=== PATIENT | female | born 1990 | race Caucasian/White ===

== ENCOUNTER 2022-04-07 19:22 | Emergency (ER) | payer BC, SELFPAY ==
[2022-04-07 19:25] VITALS: BP 137/89; PULSE 100; RESP 18; TEMP 36.4; O2SAT 97; BMI 36.0
--- NOTE | 2022-04-07 19:43 | ED_ITS ---
HPI - Wound/Laceration General Chief Complaint: Laceration/Wound Stated Complaint: Left Thumb Cut Open Time Seen by Provider: 04/07/22 19:32 History of Present Illness HPI narrative: This 31-year-old female comes in with a laceration to her left thumb. She was using a knife in the kitchen and accidentally cut the distal portion of her left thumb near the thumbnail. She states that her tetanus is up-to-date and was last administered last year. Related Data Home Medications Medication Instructions Recorded Confirmed Advair Diskus 04/07/22 acetylcystine 04/07/22 levalbuterol HCl 0.31 mg/3 mL 0.31 mg inhalation Q8H 04/07/22 04/07/22 solution for nebulization mini pill 04/07/22 multivitamin (Daily Multi-Vitamin 1 tab PO DAILY 04/07/22 04/07/22 tablet) Allergies Allergy/AdvReac Type Severity Reaction Status Date / Time cefprozil [From Cefzil] Allergy Mild Hives Verified 04/07/22 19:35 Penicillins Allergy Mild Hives Verified 04/07/22 19:33 Sulfa (Sulfonamide Allergy Mild Hives Verified 04/07/22 19:35 Antibiotics) Review of Systems Status of ROS: Reports: 10 or more systems reviewed and unremarkable except as noted in History and below Narrative: Constitutional: No fevers, no weight gain or loss. Eyes: No discharge. No vision changes. HENT: No congestion, no sore throat, no ear pain. Cardiovascular: No chest pain, no palpitations. Respiratory: No shortness of breath, no wheezes, no cough. Gastrointestinal: No abdominal pain, no vomiting, no diarrhea. Genitourinary: No dysuria, no hematuria. Musculoskeletal: Normal range of motion. Left thumb injury as described above. Skin: No rashes, no pruritis. Neurological: No dizziness, weakness, sensory change, speech change. Endo/Heme/Allergies: No bruising or bleeding. No polydipsia. Pysch: no suicidality, no anxiety, no insomnia. All other systems reviewed and are negative. Exam Narrative: Exam Narrative: Constitutional: Well-developed, well-nourished, no acute distress. HEENT: Normocephalic, atraumatic. Neck: Normal range of motion. Nontender. Supple. Heart: Intact distal pulses. Lungs: No chest discomfort. No wheezes, rhonchi, or rales. Abdomen: Nontender. Back: Normal range of motion. Extremities: Normal range of motion. 1 cm linear laceration on the distal portion of the left thumb. Skin: Intact. No rash. Warm. No erythema or pallor. Neurologic: No altered sensation. No weakness. Alert and oriented. Psychiatric: No suicidality. No anxiety or depression. No insomnia. Nursing notes and vitals signs are reviewed. Const: Vital Signs, click to edit/add: Vital Signs - 24 hr 04/07/22 19:25 Temperature 97.5 F L Pulse Rate [Pulse Oximeter] 100 Respiratory Rate 18 Blood Pressure [[facility] Upper Arm] 137/89 Pulse Oximetry 97 Oxygen Delivery Me thod Room Air Course Vital Signs Vital signs: Initial Vital Signs Temperature 97.5 F L 04/07/22 19:25 Temperature Source Temporal Artery Scan 04/07/22 19:25 Pulse Rate 100 04/07/22 19:25 Pulse Rhythm 04/07/22 19:25 Respiratory Rate 18 04/07/22 19:25 Blood Pressure 137/89 04/07/22 19:25 Blood Pressure Mean 105 04/07/22 19:25 Blood Pressure Position Sitting 04/07/22 19:25 Pulse Oximetry 97 04/07/22 19:25 Oxygen Delivery Method 04/07/22 19:25 Vital Signs Temperature 97.5 F L 04/07/22 19:25 Pulse Rate 100 04/07/22 19:25 Respiratory Rate 18 04/07/22 19:25 Blood Pressure 137/89 04/07/22 19:25 Pulse Oximetry 97 04/07/22 19:25 Oxygen Delivery Method 04/07/22 19:25 Temperature 97.5 F L 04/07/22 19:25 Pulse Rate 100 04/07/22 19:25 Respiratory Rate 18 04/07/22 19:25 Blood Pressure 137/89 04/07/22 19:25 Pulse Oximetry 97 04/07/22 19:25 Oxygen Delivery Method 04/07/22 19:25 MDM - Wound/Laceration MDM Narrative Medical decision making narrative: This patient comes in with an injury to her left thumb. The time of my assessment the bleeding has stopped. The wound edges are nicely approximated. I did cleanse the wound with water and discussed repair options including Dermabond which was preferred by the patient. This was applied with excellent results. Instructions were given regarding wound care. Discharge Plan Discharge Clinical Impression: Laceration of thumb Patient Disposition: Home, Self-Care Condition: Stable Additional Instructions: Keep wound clean and dry. Follow up with MD or return if worsening. Prescriptions: No Action Advair Diskus acetylcystine levalbuterol HCl 0.31 mg/3 mL solution for nebulization 0.31 mg inhalation Q8H multivitamin [Daily Multi-Vitamin] Tablet 1 tab PO DAILY mini pill Stand Alone Forms: [facility] Info Instructions
== END 2022-04-07 20:14 | disposition home or self-care (01) ==
PROVIDERS: Emergency Provider Emergency Medicine Emergency Medical Services
DX: S61.012A Laceration without foreign body of left thumb without damage to nail, initial encounter (principal); W26.0XXA Contact with knife, initial encounter
CPT/HCPCS: 12001; 99283

== ENCOUNTER 2023-07-14 05:12 | Emergency (ER) | payer OTHER, SELFPAY ==
[2023-07-14 05:23] VITALS: BP 134/92; PULSE 104; RESP 16; TEMP 36.9; O2SAT 97; BMI 33.7
--- NOTE | 2023-07-14 05:58 | ED.GENADULT ---
HPI - General Adult General Chief complaint: Abdominal Pain Stated complaint: abdominal pain Time Seen by Provider: 07/14/23 05:37 Source: patient Mode of arrival: ambulatory Limitations: no limitations History of Present Illness HPI narrative: 33-year-old female presents the emergency department for evaluation of diffuse lower abdominal pain accompanied by nausea vomiting and diarrhea for the past 3 and half days. Initially started with loose stools on Friday afternoon, finished working as scheduled. By Friday she had nausea then vomiting and a fever up to 101. She reports that she was evaluated in Urgent Care, viral swabs were negative. She was told symptoms were likely viral and counseled on conservative management and Imodium. Patient states that she has been trying to push fluids but is feeling weaker. Still has crampy waves of abdominal pain in the upper abdomen but mostly just achy pain in the left lower quadrant area. No history of abdominal surgeries. No bloody stools or vomit. Fevers have resolved. Did recently return from [place] but was staying at an [place] resort, low risk for exposure to contaminated water. No abdominal trauma. No recent antibiotic usage or history of C diff. Has NuvaRing for contraception and just finished her menses late last week, unlikely to be . Did try some Tylenol a few days ago, no lasting improvement. Does have some myalgias but no specific headache, neck pain, breathing difficulties or cardiac symptoms. Past medical history notable for ADHD and asthma. Reports that her home meds are NuvaRing, Wellbutrin, Adderall, Advair and Xopenex. Nonsmoker. Recent return from [place]. ROS notable for the abdominal and generalized symptoms as above, otherwise denies times 12 systems. Related Data Home Medications Medication Instructions Recorded Confirmed Advair Diskus 04/07/22 acetylcystine 04/07/22 levalbuterol HCl 0.31 mg/3 mL 0.31 mg inhalation Q8H 04/07/22 04/07/22 solution for nebulization mini pill 04/07/22 multivitamin (Daily Multi-Vitamin 1 tab PO DAILY 04/07/22 04/07/22 tablet) Allergies Allergy/AdvReac Type Severity Reaction Status Date / Time cefprozil [From Cefzil] Allergy Mild Hives Verified 04/07/22 19:35 Penicillins Allergy Mild Hives Verified 04/07/22 19:33 Sulfa (Sulfonamide Allergy Mild Hives Verified 04/07/22 19:35 Antibiotics) [facility] Social History Smoking Status: Unknown if ever smoked Non-prescribed substance use: denies use Exam Const: Vital Signs, click to edit/add: Vital Signs - 24 hr 07/14/23 05:23 07/14/23 07:38 Temperature 98.4 F Pulse Rate [Left P ulse Oximeter] 104 H 77 Respiratory Rate 16 16 Blood Pressure [Ri ght Upper Arm] 134/92 H 113/66 Pulse Oximetry 97 98 Oxygen Delivery Me thod Room Air Room Air Documenting provider has reviewed patient's vital signs: yes Common normals: no apparent distress and alert General appearance: cooperative and well kempt Other: Appears mildly ill but no distress. HENMT: Common normals: normocephalic Head and scalp: normocephalic Face and sinus: normal facial exam Mouth: oral and palatal mucosa normal Throat: posterior oropharynx normal Eye: Common normals: conjunctivae normal General eye: normal appearance of both eyes Conjunctiva: conjunctiva(e) normal Neck & C-Spine: Common normals: no lymphadenopathy Resp: Common normals: normal respiratory effort, no use of accessory muscles and clear to auscultation bilaterally Effort & inspection: able to speak in complete sentences Auscultation: clear to auscultation bilaterally Cardio: Common normals: regular rate, regular rhythm, S1 normal heart sound, S2 normal heart sound and no murmurs Rate: regular rate Rhythm: regular rhythm Heart sounds: S1 normal and S2 normal GI: Common normals: Normal to inspection, nondistended, normoactive bowel sounds present, soft to palpation, no hepatosplenomegaly and no masses Palpation: soft and no hepatosplenomegaly Other: Diffusely tender to lower abdomen, a little more on the left than the right. But certainly no rebound tenderness or guarding. Belly is nice and soft. Bowel sounds are normoactive throughout. Extremity: Common normals: normal to inspection, normal capillary refill and no pedal edema Neuro: Sensorium/orientation: alert Motor exam: no movement abnormalities noted Psych: Appearance: well kempt Attitude: engaged Activity/motor behavior: appropriate eye contact Mood and affect: euthymic mood Insight: insight good Judgement: judgment good Skin: Common normals: no rashes or lesions noted General skin exam: no rashes or lesions noted Course Course ED Course: Symptoms most likely consistent with gastroenteritis though cannot exclude bowel obstruction, volvulus, pancreatitis, diverticulitis, influenza, among other viral syndromes. Could potentially be traveler's diarrhea though low risk in resort areas of [place]. She is mildly tachycardic and I suspect she might be mildly dehydrated. I recommended a L of LR, 4 mg of IV Zofran and 4 mg of loperamide with 15 mg of Toradol. I would like some basic labs CBC, CRP and comprehensive metabolic panel as well as lipase. If these are normal I do not think she needs imaging, will re-evaluate after labs and seeing if she gets any symptom relief from the interventions above. Reevaluation(s) Time of Reevaluation #1: 07:23 Reevaluation #1: Patient feeling markedly better and has been able to tolerate sips of water now. Labs are overall quite reassuring. These were reviewed with her. Subtle more time discussing who else from her trip may be ill, it is unusual that if this for gastroenteritis that none of her other household contacts are affected. I think she potentially could have contracted traveler's diarrhea. I discussed potentially treating with a short course of azithromycin and she was agreeable to this. Discussed the potential for worsening her nausea and diarrhea but I think the benefit outweighs the risk and she agreed as well. Will prescribe 500 mg today and then 250 daily for an additional 2 days. Zofran 4 mg p.r.n. and she may continue loperamide as needed. Alarm symptoms reviewed that would warrant ED presentation. She verbalizes understanding and agreement. Primary care follow-up if not improving in 3-5 days. Vital Signs Vital signs: Initial Vital Signs Temperature 98.4 F 07/14/23 05:23 Temperature Source Temporal Artery Scan 07/14/23 05:23 Pulse Rate 104 H 07/14/23 05:23 Pulse Rhythm Regular 07/14/23 05:23 Respiratory Rate 16 07/14/23 05:23 Blood Pressure 134/92 H 07/14/23 05:23 Blood Pressure Mean 106 H 07/14/23 05:23 Blood Pressure Position Sitting 07/14/23 05:23 Pulse Oximetry 97 07/14/23 05:23 Oxygen Delivery Method Room Air 07/14/23 05:23 Vital Signs Temperature 98.4 F 07/14/23 05:23 Pulse Rate 104 H 07/14/23 05:23 Respiratory Rate 16 07/14/23 05:23 Blood Pressure 134/92 H 07/14/23 05:23 Pulse Oximetry 97 07/14/23 05:23 Oxygen Delivery Method Room Air 07/14/23 05:23 Temperature 98.4 F 07/14/23 05:23 Pulse Rate 77 07/14/23 07:38 Respiratory Rate 16 07/14/23 07:38 Blood Pressure 113/66 07/14/23 07:38 Pulse Oximetry 98 07/14/23 07:38 Oxygen Delivery Method Room Air 07/14/23 07:38 Medications Administered Medications: Discontinued Medications Generic Name Dose Route Start Last Admin Trade Name Freq PRN Reason Stop Dose Admin Lactated Ringer's 1,000 mls @ 1,000 mls/hr 07/14/23 05:51 07/14/23 06:34 Lactated Ringers 1000 Ml IV 07/14/23 06:50 1,000 mls/hr .Q1H ONE Administration Ketorolac Tromethamine 15 mg 07/14/23 05:51 07/14/23 06:34 Ketorolac 15 Mg/Ml Inj IVP 07/14/23 05:52 15 mg ONCE ONE Administration Loperamide HCl 4 mg 07/14/23 05:51 07/14/23 06:35 Loperamide Hcl 2 Mg Capsule PO 07/14/23 05:52 4 mg ONCE ONE Administration Ondansetron HCl 4 mg 07/14/23 05:51 07/14/23 06:35 Ondansetron 2 Mg/Ml Inj IVP 07/14/23 05:52 4 mg ONCE ONE Administration Medical Decision Making Lab Data Lab results reviewed: Yes I reviewed the patient's lab results Lab results narrative: Reassuring. Swab is also negative Labs: Lab Results 07/14/23 Range/Units 06:25 WBC 6.68 (4.50-11.00) K/uL RBC 4.94 (4.00-5.20) m/uL Hgb 13.1 (12.0-16.0) gm/dL Hct 39.1 (33.0-51.0) % MCV 79 L (80-100) fL MCH 27 (26-34) pg MCHC 34 (32-36) gm/dL RDW Coeff of Beny 13.0 (11.5-15.5) % Plt Count 369 (140-440) K/uL Neut % (Auto) 70.7 (42.0-72.0) % Lymph % (Auto) 15.1 L (20-44) % Hart % (Auto) 13.5 H (0.0-11.0) % Eos % (Auto) 0.3 (0.0-7.0) % Baso % (Auto) 0.3 (0.0-3.0) % Neut # (Auto) 4.72 (1.7-7.0) K/uL Lymph # (Auto) 1.00 (0.90-2.90) K/uL Hart # (Auto) 0.90 (0.00-0.90) K/UL Eos # (Auto) 0.02 (0.00-0.50) K/uL Baso # (Auto) 0.02 (0.00-0.30) K/uL Abs Immat Gran (auto) 0.01 (0.00-0.30) K/uL Imm/Tot Granulo (auto) 0.1 % Sodium 135 (135-149) mmol/L Potassium 3.6 (3.6-5.1) mmol/L Chloride 104 (96-114) mmol/L Carbon Dioxide 19 L (20-32) mmol/L Anion Gap 12 (7-15) mEq/L BUN 7 (5-24) mg/dL Creatinine 0.8 (0.5-1.5) mg/dL Estimated Creat Clear 98.18 Estimated GFR 100 ml/min Glucose 120 H (60-115) mg/dL Calcium 9.0 (8.4-10.6) mg/dL Total Bilirubin 0.7 (0.1-1.5) mg/dL AST 27 (12-35) U/L ALT 35 (4-35) U/L Alkaline Phosphatase 73 (40-150) U/L Total Protein 7.4 (6.0-8.3) g/dL Albumin 4.2 (3.3-5.0) g/dL Lipase 30 (23-300) U/L SARS-CoV-2 (PCR) Negative SARS-CoV-2 (Negative) Influenza Type A (PCR) Negative PCR FLU A (Negative) Influenza Type B (PCR) Negative PCR FLU B (Negative) RSV (PCR) Negative PCR RSV (Negative) Discharge Plan Discharge Clinical Impression: Diarrhea, travelers' Patient Disposition: Home, Self-Care Condition: Improved Instructions: Traveler's Diarrhea (ED) Additional Instructions: I am glad your feeling better after the anti nausea medicine and fluids. Your labs look great, no severe dehydration or electrolyte abnormalities, no elevated white count or other signs of severe inflammation. Oral swabs are also reassuring. I am getting more concern from your story that you actually do have traveler's diarrhea though this is supposed to be quite rare at those very nice resorts. Because of this, I do recommend that we start you on some azithromycin. You will take 2 pills today and then 1 pill Friday and Friday. The instructions on the packet will say 2 pills daily for all 3 days but this is likely overkill for you. It is not unsafe to take both pills each day but it is more likely to cause nausea and diarrhea which you certainly do not need. It is okay for you to continue taking the Imodium, 2 pills up to every 4 hours, max of 8 per day. I have given her prescription for ondansetron, also known as Zofran, anti nausea medication. This should help with hydration and appetite markedly. You should be feeling quite a bit better in 48 hours. If no improvement in another 3 days, I would recommend reassessment. Continue to push fluids. Slowly advance your solid foods as you are feeling better. Off of work today. Consider returning tomorrow if your symptoms have improved markedly and you have been on antibiotic for 24 hours. Activity Level: Activity as Tolerated Prescriptions: No Action Advair Diskus acetylcystine levalbuterol HCl 0.31 mg/3 mL solution for nebulization 0.31 mg inhalation Q8H multivitamin [Daily Multi-Vitamin] Tablet 1 tab PO DAILY mini pill Follow Up/Referrals: Provider,Not a Local [Primary Care Provider] - Stand Alone Forms: [employer] Info Instructions
[2023-07-14] MEDS: LACTATED RINGERS 1000 ML 1,000 ML IV (06:34)
[2023-07-14] MEDS: KETOROLAC 15 MG/ML inj IVP (06:34)
[2023-07-14] MEDS: ONDANSETRON 2 MG/ML inj 4 MG IVP (06:35)
[2023-07-14] MEDS: LOPERAMIDE HCL 2 MG CAPSULE 4 MG PO (06:35)
[2023-07-14 06:36] LABS: Basophils Absolute Auto 0.02 K/uL (0.00-0.30); Basophils Percent Auto 0.3 % (0.0-3.0); Eosinophils Absolute Auto 0.02 K/uL (0.00-0.50); Eosinophils Percent Auto 0.3 % (0.0-7.0); Hematocrit 39.1 % (33.0-51.0); Hemoglobin* 13.1 gm/dL (12.0-16.0); Immature Granulocytes Abs Auto 0.01 K/uL (0.00-0.30); Immature Granulocytes Pct Auto 0.1 %; Lymphocytes Percent Auto 15.1 % (20-44); Mean Corpuscular HGB Conc 34 gm/dL (32-36); Mean Corpuscular Hemoglobin 27 pg (26-34); Mean Corpuscular Volume 79 fL (80-100); Monocytes Percent Auto 13.5 % (0.0-11.0); Neutrophils Absolute Auto 4.72 K/uL (1.7-7.0); Neutrophils Percent Auto 70.7 % (42.0-72.0); Platelet Count* 369 K/uL (140-440); Red Blood Count 4.94 m/uL (4.00-5.20); White Blood Count* 6.68 K/uL (4.50-11.00)
[2023-07-14 06:39] LABS: Slide Review Reflex No
[2023-07-14 06:54] LABS: Albumin* 4.2 g/dL (3.3-5.0); Chloride* 104 mmol/L (96-114)
[2023-07-14 06:55] LABS: Potassium* 3.6 mmol/L (3.6-5.1); Sodium* 135 mmol/L (135-149)
[2023-07-14 06:57] LABS: Alkaline Phosphatase* 73 U/L (40-150); Anion Gap 12 mEq/L (7-15); Aspartate Amino Transferase* 27 U/L (12-35); Bilirubin Total* 0.7 mg/dL (0.1-1.5); Carbon Dioxide* 19 mmol/L (20-32); Creatinine* 0.8 mg/dL (0.5-1.5); Est. Creatinine Clearance* 98.18; Estimated Glomerular Filt Rate 100 ml/min; Total Protein* 7.4 g/dL (6.0-8.3)
[2023-07-14 06:58] LABS: Alanine Aminotransferase* 35 U/L (4-35); Blood Urea Nitrogen* 7 mg/dL (5-24); Glucose* 120 mg/dL (60-115); Lipase* 30 U/L (23-300)
[2023-07-14 07:38] VITALS: BP 113/66; PULSE 77; RESP 16; O2SAT 98
[2023-07-14 07:46] LABS: PCR FLU A Negative PCR FLU A (Negative); PCR FLU B Negative PCR FLU B (Negative); PCR RSV Negative PCR RSV (Negative); SARS PCR* Negative SARS-CoV-2 (Negative)
[2023-07-14 08:56] LABS: C Reactive Protein* 8.5 mg/dL (0.5-1.0)
== END 2023-07-14 07:59 | disposition home or self-care (01) ==
PROVIDERS: Emergency Provider Family Medicine
DX: A08.8 Other specified intestinal infections (principal)
CPT/HCPCS: 36415; 80053; 83690; 85025; 86140; 87631; 96374; 96375; 99284; A9270; J1885; J2405; J7120

== ENCOUNTER 2024-03-13 21:31 | Emergency (ER) | payer OTHER, SELFPAY ==
[2024-03-13 21:37] VITALS: BP 148/105; PULSE 96; RESP 16; TEMP 36.8; O2SAT 98; BMI 33.5
[2024-03-13 21:44] LABS: Appearance Urine Clear (Clear); Bilirubin Urine Negative (Negative); Blood Urine 3+ (Negative); Color Urine Orange (Yellow); Glucose Urine Negative (Negative); Ketones Urine Negative (Negative); Leukocyte Esterase Urine Negative (Negative); Nitrite Urine Negative (Negative); Protein Urine Trace (Negative); Urobilinogen Urine 0.2 (0.2-1.0); pH Urine 6.5 (5.0-8.5)
--- NOTE | 2024-03-13 21:48 | ED.GENADULT ---
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 Francisca was working out this morning and noticed some left flank pain and thought this was related to a musculoskeletal injury. She was on a heating pad all day and notes that this was really the only position that gave her some relief. Tonight however she got up to use the bathroom and she had blood in her urine. She just finished her period which was normal and on time. She notes no nausea fever or chills. She states that in the past kidney stones were noted in her kidneys as an incidental finding. She has never passed a kidney stone to her knowledge in the past. No fever chills at this time. Related Data Home Medications ?Medication ?Instructions ?Recorded ?Confirmed Advair Diskus 04/07/22 acetylcystine 04/07/22 levalbuterol HCl 0.31 mg/3 mL 0.31 mg inhalation Q8H 04/07/22 04/07/22 solution for nebulization mini pill 04/07/22 multivitamin (Daily Multi-Vitamin 1 tab PO DAILY 04/07/22 04/07/22 tablet) Allergies Allergy/AdvReac Type Severity Reaction Status Date / Time cefprozil [From Cefzil] Allergy Mild Hives Verified 04/07/22 19:35 Penicillins Allergy Mild Hives Verified 04/07/22 19:33 Sulfa (Sulfonamide Allergy Mild Hives Verified 04/07/22 19:35 Antibiotics) Review of Systems Status of ROS: Reports: 6 or more systems reviewed and unremarkable except as noted in History and below PFSH PFSH Social History Smoking Status: Never smoker Second hand tobacco smoke exposure: No How often do you have a drink containing alcohol: never AUDIT-C Alcohol total score: 0 Non-prescribed substance use: denies use Exam Narrative: Exam Narrative: Alert and oriented no acute distress. Mentating normally. No CVA tenderness to percussion. Lung sounds clear. Heart with regular rate and rhythm. No lower extremity edema. Moving all extremities. Const: Vital Signs, click to edit/add: Vital Signs - 24 hr 03/13/24 21:37 03/13/24 22:01 Temperature 98.2 F 98.2 F Pulse Rate [Pulse Oximeter] 96 Respiratory Rate 16 Blood Pressure [Ri ght Upper Arm] 148/105 H Pulse Oximetry 98 Oxygen Delivery Me thod Room Air Documenting provider has reviewed patient's vital signs: yes Course Course ED Course: At this time given the hematuria, onset of left flank pain earlier today strongly suspect kidney stone but differential diagnosis also includes UTI, pyelonephritis. Will insert IV, give Toradol 15 mg IV as well as check CBC and basic panel. Plan on abdominal and pelvic CT without contrast at this time. Reevaluation(s) Reevaluation #1: Patient much improved after Toradol. Discussed CT results with patient. Noted findings of patchy opacities left lung base along with 2 cm nodular focus. Patient has had cold-like symptoms for 2 weeks and continues to have a cough. She has decreased breath sounds in the left lower lung base but no crackles. Given CT findings however and ongoing symptoms for 2 weeks will treat with an antibiotic. Patient has multiple allergies including hives to cephalosporins and penicillins as well as sulfa antibiotic. We spoke about using Zithromax alone or Levaquin. At this time she feels Zithromax would be enough for her. If she is not improving she will follow up with her primary. Vital Signs Vital signs: Initial Vital Signs Temperature 98.2 F 03/13/24 21:37 Temperature Source Temporal Artery Scan 03/13/24 21:37 Pulse Rate 96 03/13/24 21:37 Respiratory Rate 16 03/13/24 21:37 Blood Pressure 148/105 H 03/13/24 21:37 Blood Pressure Mean 119 H 03/13/24 21:37 Blood Pressure Position Sitting 03/13/24 21:37 Pulse Oximetry 98 03/13/24 21:37 Oxygen Delivery Method Room Air 03/13/24 21:37 Vital Signs Temperature 98.2 F 03/13/24 21:37 Pulse Rate 96 03/13/24 21:37 Respiratory Rate 16 03/13/24 21:37 Blood Pressure 148/105 H 03/13/24 21:37 Pulse Oximetry 98 03/13/24 21:37 Oxygen Delivery Method Room Air 03/13/24 21:37 Temperature 98.2 F 03/13/24 22:01 Pulse Rate 96 03/13/24 21:37 Respiratory Rate 16 03/13/24 21:37 Blood Pressure 148/105 H 03/13/24 21:37 Pulse Oximetry 98 03/13/24 21:37 Oxygen Delivery Method Room Air 03/13/24 21:37 Medications Administered Medications: Discontinued Medications Generic Name Dose Route Start Last Admin Trade Name Jaylan PRN Reason Stop Dose Admin Ketorolac Tromethamine 15 mg 03/13/24 21:54 03/13/24 22:01 Ketorolac 15 Mg/Ml Inj IVP 03/13/24 21:55 15 mg ONCE ONE Administration Medical Decision Making MDM Narrative Medical decision making narrative: 1. Left flank pain with hematuria-patient had the onset of left flank pain this morning thought to be musculoskeletal but no relief throughout the day and tonight had some hematuria. She certainly could have passed a stone or there is a 8 mm stone in the kidney itself that may be mobile. No evidence of urinary tract infection. Will have her follow-up with Urology. Much improved after IV Toradol. 2. Hypokalemia-mild at 3.3. Suggest increasing oral intake of potatoes and bananas and other potassium containing foods. 3. Noted on CT is increased lung markings pulmonary nodule. Patient notes an ongoing cough and cold-like symptoms for 2 weeks. Will treat with Zithromax at this time. Suggestion for repeat imaging in a 12 weeks per Radiology. Patient will be offered copy of her CT tonight. 4. Disposition-home at this time. Continue ibuprofen or Tylenol as needed. Seek medical attention for fever, worsening symptoms and as needed. Medical Records Medical records reviewed: Yes I reviewed the patient's medical records Lab Data Lab results reviewed: Yes I reviewed the patient's lab results Labs: Lab Results 03/13/24 03/13/24 03/13/24 Range/Units 21:35 21:40 22:01 WBC 9.14 (4.50-11.00) K/uL RBC 4.84 (4.00-5.20) m/uL Hgb 13.1 (12.0-16.0) gm/dL Hct 39.0 (33.0-51.0) % MCV 81 (80-100) fL MCH 27 (26-34) pg MCHC 34 (32-36) gm/dL RDW Coeff of Beny 12.6 (11.5-15.5) % Plt Count 407 (140-440) K/uL Neut % (Auto) 58.3 (42.0-72.0) % Lymph % (Auto) 29.6 (20-44) % Williamson % (Auto) 8.5 (0.0-11.0) % Eos % (Auto) 2.7 (0.0-7.0) % Baso % (Auto) 0.5 (0.0-3.0) % Neut # (Auto) 5.31 (1.7-7.0) K/uL Lymph # (Auto) 2.71 (0.90-2.90) K/uL Williamson # (Auto) 0.80 (0.00-0.90) K/UL Eos # (Auto) 0.25 (0.00-0.50) K/uL Baso # (Auto) 0.05 (0.00-0.30) K/uL Abs Immat Gran (auto) 0.04 (0.00-0.30) K/uL Imm/Tot Granulo (auto) 0.4 % Sodium 136 (135-149) mmol/L Potassium 3.3 L (3.6-5.1) mmol/L Chloride 104 (96-114) mmol/L Carbon Dioxide 21 (20-32) mmol/L Anion Gap 11 (7-15) mEq/L BUN 16 (5-24) mg/dL Creatinine 0.8 (0.5-1.5) mg/dL Estimated Creat Clear 98.18 Estimated GFR 100 ml/min Glucose 130 H (60-115) mg/dL Calcium 9.5 (8.4-10.6) mg/dL Urine Color [place] A (Yellow) Urine Appearance Clear (Clear) Urine pH 6.5 (5.0-8.5) Ur Specific [place] 1.010 (1.000-1.030) Urine Protein Trace A (Negative) Urine Glucose (UA) Negative (Negative) Urine Ketones Negative (Negative) Urine Blood 3+ A (Negative) Urine Nitrite Negative (Negative) Urine Bilirubin Negative (Negative) Urine Urobilinogen 0.2 (0.2-1.0) Ur Leukocyte Esterase Negative (Negative) Urine RBC 25-50 A (0-2) Urine WBC 0-2 (0-5) Ur Squamous Epith Cells Few (None-Few) Urine Bacteria Few A (None) Urine HCG, Qual Negative (Negative) Lab Acknowledgement Test Added Imaging Data CT scan - abdomen: Attestation: I have reviewed the pertinent imaging results. My impression: Large stone noted in the left kidney. Radiologist's impression: Lower chest: Patchy left basilar opacities. There is a nodular focus within this area measuring 2.0 centimeters. Hepatobiliary: No significant parenchymal abnormality is appreciated. Spleen: Unremarkable. Pancreas: No acute abnormality appreciated. Adrenal glands: No acute abnormality appreciated. Kidneys: Left nonobstructing renal stone measures 8 millimeters. No hydronephrosis. No additional renal stones present. Bowel: No obstruction. No focal perienteric or pericolonic stranding is appreciated. The appendix is visualized and appears unremarkable. Vascular: Poorly evaluated on this noncontrast examination. Lymph nodes: No gross lymphadenopathy. Peritoneum: No free air. No free fluid. : No acute abnormality appreciated. Soft tissues: No acute abnormality appreciated. Bones: No acute fracture. No lytic or blastic lesion. Impression: 1. Nonobstructing left renal stone measures 8 millimeters. No hydronephrosis or additional stones appreciated. 2. Patchy and linear opacities in the left lung base with a 2.0 centimeter nodular focus present. Findings may represent an infectious or inflammatory process. Follow-up CT in 12 weeks recommended to ensure resolution. Discharge Plan Discharge Clinical Impression: Nephrolithiasis, Hematuria, Pneumonia, Hypokalemia Patient Disposition: Home, Self-Care Condition: Improved Additional Instructions: Push fluids, follow-up with your primary care for urological consultation. Will also start you on Zithromax for pneumonia. However if you are not improving please see your primary. As noted on your CT 0 need to follow-up for repeat CT of the chest to ensure resolution of the findings. I would also speak to your primary in regards to Urology consultation. Ibuprofen or Tylenol as needed for discomfort. He increase potassium containing foods such as potatoes and bananas. Return to the emergency room as needed. Prescriptions: No Action Advair Diskus acetylcystine levalbuterol HCl 0.31 mg/3 mL solution for nebulization 0.31 mg inhalation Q8H multivitamin [Daily Multi-Vitamin] Tablet 1 tab PO DAILY mini pill Follow Up/Referrals: Provider,Not a Local [Primary Care Provider] - Stand Alone Forms: [facility] Info Instructions
[2024-03-13 21:52] LABS: RBC Urine 25-50 (0-2); WBC Urine 0-2 (0-5)
[2024-03-13 21:53] LABS: Bacteria Urine Few; Squamous Epithelial Cell Urine Few (None-Few)
--- NOTE | 2024-03-13 21:54 | CRLHL7_ITS ---
For Patients: As a result of the Century Cures Act, medical imaging exams and procedure reports are released immediately into your electronic medical record. You may view this report before your referring provider. If you have questions, please contact your health care provider. Indication: Left flank pain, history of stone Technique: Noncontrast CT through the abdomen and pelvis with multiplanar reformats. Comparison: None Findings: Lower chest: Patchy left basilar opacities. There is a nodular focus within this area measuring 2.0 centimeters. Hepatobiliary: No significant parenchymal abnormality is appreciated. Spleen: Unremarkable. Pancreas: No acute abnormality appreciated. Adrenal glands: No acute abnormality appreciated. Kidneys: Left nonobstructing renal stone measures 8 millimeters. No hydronephrosis. No additional renal stones present. Bowel: No obstruction. No focal perienteric or pericolonic stranding is appreciated. The appendix is visualized and appears unremarkable. Vascular: Poorly evaluated on this noncontrast examination. Lymph nodes: No gross lymphadenopathy. Peritoneum: No free air. No free fluid. : No acute abnormality appreciated. Soft tissues: No acute abnormality appreciated. Bones: No acute fracture. No lytic or blastic lesion. Impression: 1. Nonobstructing left renal stone measures 8 millimeters. No hydronephrosis or additional stones appreciated. 2. Patchy and linear opacities in the left lung base with a 2.0 centimeter nodular focus present. Findings may represent an infectious or inflammatory process. Follow-up CT in 12 weeks recommended to ensure resolution. Please note that all CT scans at this facility use dose modulation, iterative reconstruction, and/or weight-based dosing when appropriate to reduce radiation dose to as low as reasonably achievable. Dictated by Kevin Corona MD @ 03/13/2024 11:32:26 PM (Electronically Signed)
[2024-03-13 22:01] VITALS: TEMP 36.8
[2024-03-13] MEDS: KETOROLAC 15 MG/ML inj IVP (22:01)
[2024-03-13 22:06] LABS: Basophils Absolute Auto 0.05 K/uL (0.00-0.30); Basophils Percent Auto 0.5 % (0.0-3.0); Eosinophils Absolute Auto 0.25 K/uL (0.00-0.50); Eosinophils Percent Auto 2.7 % (0.0-7.0); Hemoglobin* 13.1 gm/dL (12.0-16.0); Immature Granulocytes Abs Auto 0.04 K/uL (0.00-0.30); Immature Granulocytes Pct Auto 0.4 %; Lymphocytes Absolute Auto 2.71 K/uL (0.90-2.90); Lymphocytes Percent Auto 29.6 % (20-44); Mean Corpuscular HGB Conc 34 gm/dL (32-36); Mean Corpuscular Hemoglobin 27 pg (26-34); Mean Corpuscular Volume 81 fL (80-100); Monocytes Percent Auto 8.5 % (0.0-11.0); Neutrophils Absolute Auto 5.31 K/uL (1.7-7.0); Neutrophils Percent Auto 58.3 % (42.0-72.0); Platelet Count* 407 K/uL (140-440); RDW Coefficient of Variation % 12.6 % (11.5-15.5); Red Blood Count 4.84 m/uL (4.00-5.20); White Blood Count* 9.14 K/uL (4.50-11.00)
--- OUTSIDE RECORDS SUMMARY | 2024-03-13 22:06 | XMS_ITS | Encounter Summary ---
Author Organization [facility] Address [address] [place] [address]. [place] [address] Care Team Providers Care Secretary Office Clerk Name Role Phone Norma Zhang APRN BEHAVIORAL THERAPIST Primary Car e Provider Norma Zhang APRN BEHAVIORAL THERAPIST Unavailable Irineo Lebron PhD Unavailable [phone] Encounter Details Date Type Department Care Team (Latest Contact Info) Description 03/04/2024 Travel Social History Tobacco Use Types Packs/Day Years Used Date Smoking Tobacco: Never Smokeless Tobacco: Never Alcohol Use Standard Drinks/Week Comments Not Currently 0 (1 standard drink = 0.6 oz pure alcohol) socially, couple times per month Social Connection and Isolation Panel [NHANES] A nswer Date Recorded Frequency of Communication with Friends and Fami ly Not on file 11/24/2023 How often do you get together with friends or re latives? Twice a week 11/24/2023 Attends Holiness Services Not on file 11/23 Active Member of Clubs or Organizations Not on f ile 11/24/2023 Attends Club or Organization Meetings Not on stephanie e 11/24/2023 Marital Status Not on file 11/24/2023 AUDIT-C Answer Date Recorded Q1: How often do you have a drink containing alc ohol? Monthly or less 11/11/2022 Q2: How many drinks containi ng alcohol do you have on a typical day when you are drinking? 1 or 2 11/11/2022 Q3: How often do you have si x or more drinks on one occasion? Less than monthly 11/11/2022 PHQ-2 Answer Date Recorded PHQ-2 Score 0 11/25/2023 [facility] - Occupational Stress Questionnaire Answer Date Recorded Do you feel stress - tense, restless, nervous, or anxious, or unable to sleep at night because your mind is troubled all the time - these days? Only a little 11/24/2023 Exercise Vital Sign Answer Date Recorde d On average, how many days pe r week do you engage in moderate to strenuous exercise (like a brisk walk)? 4 days 11/24/2023 On average, how many minutes do you engage in exercise at this level? 40 min 11/24/2023 [place] Depression Scale Answer Date Recorded [place] Depression Score 3 10/31/2021 Last EPDS Self Harm Result Not on file 10/31 Adolescent Education Answer Date Record ed Getting School Help Needed Not on file 02/25 Food Insecurity Answer Date Recorded Within the past 12 months, d id you worry that your food would run out before you got money to buy more? No 11/24/2023 Within the past 12 months, d id the food you bought just not last and you didn? t have money to get more? No 11/24/2023 Housing Stability Answer Date Recorded Do you have housing? (Yony g is defined as stable permanent housing and does not include staying ouside in a car, in a tent, in an abandoned building, in an overnight halfway, or couch-surfing.) Yes 11/24/2023 Are you worried about losing your housing? No 11/24/2023 Financial Resource Strain Answer Date R ecorded Within the past 12 months, h ave you or your family members you live with been unable to get utilities (heat, electricity) when it was really needed? No 11/24/2023 Transportation Needs Answer Date Record ed Within the past 12 months, h as lack of transportation kept you from medical appointments, getting your medicines, non-medical meetings or appointments, work, or from getting things that you need? No 11/24/2023 Interpersonal Safety Answer Date Record ed Do you feel physically and e motionally safe where you currently live? Yes 11/25/2023 Within the past 12 months, h ave you been hit, slapped, kicked or otherwise physically hurt by someone? No 11/25/2023 Within the past 12 months, h ave you been humiliated or emotionally abused in other ways by your partner or ex-partner? 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 Gender Identity Female 06/06/2018 9:16 PM ASSISTANT BASEBALL COACH Sexual Orientation Straight 06/06/2018 9: 16 PM ASSISTANT BASEBALL COACH documented as of this encounter Plan of Treatment Upcoming Encounters Date Type Department Care Team (Late st Contact Info) Description 11/30/2024 7:00 AM CDT Office Visit [facility] [address] [place] [address] Drive [address] [place] [phone] Norma Zhang APRN BEHAVIORAL THERAPIST [address] [place] [address] [place] [id number] documented as of this encounter Visit Diagnoses Not on filedocumented in this encounter Additional Health Concerns Assessment Noted Time PHQ-9 Depression Total Score: 2 04/04/20 23 10:40 AM CDT documented as of this encounter Care Teams Secretary Office Clerk Relationship Specialty Start Date End Date Norma Zhang APRN BEHAVIORAL THERAPIST [address] [place] [address] [place] [id number] PCP - General Nurse Practitioner 11/30/18 Norma Zhang APRN BEHAVIORAL THERAPIST [address] [place] [address] [place] [id number] Assigned PCP 06/22/22 Irineo Lebron, PhD [address] [place] [address] Assigned Behavioral Health Provider 11/23/22 documented as of this encounter
--- OUTSIDE RECORDS SUMMARY | 2024-03-13 22:06 | XMS_ITS | Encounter Summary ---
Author Organization [facility] Address [address] [place] [address]. [place] [address] Care Team Providers Care Ui Designer Name Role Phone Norma Zhang APRN BLOCK CHOPPER HAND Primary Car e Provider Norma Zhang APRN BLOCK CHOPPER HAND Unavailable Irineo Lebron PhD Unavailable [phone] Reason for Visit * Reason Onset Date Comments Refill Request 02/27/2024 Encounter Details Date Type Department Care Team (Late st Contact Info) Description 02/27/2024 [facility] [address] [place] [phone] Norma Zhang APRN BLOCK CHOPPER HAND [address] [facility] [place] [id number] Refill Request Social History Tobacco Use Types Packs/Day Years [...] re latives? Twice a week 11/24/2023 Attends [employer] Services Not on file 11/23 Active Member [...] Answer Date Recorded PHQ-2 Score 0 11/25/2023 [facility] - Occupational Stress Questionnaire Answer Date Recorded [...] exercise at this level? 40 min 11/24/2023 [place] Depression Scale Answer Date Recorded [place] Depression Score 3 10/31/2021 Last EPDS Self [...] Answer Date Recorded Do you have housing? 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 Sexual Orientation Straight 06/06/2018 9: 16 PM HORIZONTAL BORING MILL SET UP OPERATOR documented as of this encounter Plan of Treatment Upcoming Encounters Date Type Department Care Team (Late st Contact Info) Description 11/30/2024 7:00 AM CDT Office Visit [facility] [address] [place] [address] Drive [address] [place] [phone] Norma Zhang APRN BLOCK CHOPPER HAND [address] [place] [address] [place] [id number] documented as of this encounter Visit Diagnoses Diagnosis ADHD (attention deficit hyperactivity disorder), combined type Attention deficit disorder with hyperactivity documented in this encounter Additional Health Concerns Assessment Noted Time PHQ-9 Depression Total Score: 2 04/04/20 23 10:40 AM CDT documented as of this encounter Care Teams Ui Designer Relationship Specialty Start Date End Date Norma Zhang APRN BLOCK CHOPPER HAND [address] [place] [address] [place] [id number] PCP - General Nurse Practitioner 11/30/18 Norma Zhang APRN BLOCK CHOPPER HAND [address] [place] [address] [place] [id number] Assigned PCP 06/22/22 Irineo Lebron, PhD [address] [place] [address] Assigned Behavioral Health Provider 11/23/22 documented as of this encounter
--- OUTSIDE RECORDS SUMMARY | 2024-03-13 22:06 | XMS_ITS | Clinical Summary ---
Author Organization [facility] Address [address] [place] [id number] Care Team Providers Care Physical Therapy Aide Name Role Phone Norma Zhang APRN ENGINE CLEANER Primary Car e Provider Norma Zhang APRN ENGINE CLEANER Unavailable Irineo Lebron PhD Unavailable [phone] Allergies Active Allergy Reactions Criticality Noted Date Comments Amoxicillin-Pot Clavulanate Rash Low 12/07/19 09 Cefprozil Rash High 02/22/2010 Levofloxacin Palpitations Low 08/24/2016 Penicillin G Potassium Rash High 02/22/2010 Sulfa Antibiotics Hives,Rash High 02/22/2010 Severe hives / rash with this she received 2 shots of Epi Medications Medication Sig Dispensed Refills Start Date End Date Status Acetaminophen (TYLENOL PO) Take 1,000 mg by mouth PRN Active Multiple Vitamin (MULTIVITAMIN PO) Active buPROPion (WELLBUTRIN XL) 300 MG 24 hr tabletIndications :Depression, unspecified depression type Take 1 tablet (300 mg) by mouth every morning 90 tablet 3 4 Active etonogestrel-ethi nyl estradiol (NUVARING) 0.12-0.015 MG/24HR vaginal ringIndications:E ncounter for initial prescription of vaginal ring hormonal contraceptive Place 1 each vaginally every 28 days 3 each 3 4 Active fluticasone-salme terol (ADVAIR HFA) 230-21 MCG/ACT inhalerIndication s:Bronchiectasis without complication (H) Inhale 2 puffs into the lungs 2 times daily 12 g 11 4 Active levalbuterol (XOPENEX) 1.25 MG/3ML neb solutionIndicatio ns:Mild persistent asthma with acute exacerbation USE 3 MLS BY NEBULIZATION EVERY 6 HOURS NEEDED FOR SHORTNESS OF BREATH / DYSPNEA OR WHEEZING 90 mL 11 4 Active albuterol (PROAIR HFA/PROVENTIL HFA/VENTOLIN HFA) 108 (90 Base) MCG/ACT inhalerIndication s:Bronchiectasis without complication (H) INHALE 2 PUFFS INTO THE LUNGS EVERY 6 HOURS NEEDED FOR SHORTNESS OF BREATH, WHEEZING OR COUGH 18 g 4 Active amphetamine-dextr oamphetamine (ADDERALL) 10 MG tabletIndications :ADHD (attention deficit hyperactivity disorder), combined type Take 1 tablet (10 mg) by mouth daily. In afternoon as needed 30 tablet 4 Active amphetamine-dextr oamphetamine (ADDERALL XR) 10 MG 24 hr capsuleIndication s:ADHD (attention deficit hyperactivity disorder), combined type Take 1 capsule (10 mg) by mouth daily. 30 capsule 4 Active benzonatate (TESSALON) 200 MG capsuleIndication s:Acute cough Take 1 capsule (200 mg) by mouth 3 times daily as needed for cough. 30 capsule 4 Active amphetamine-dextr oamphetamine (ADDERALL) 10 MG tabletIndications :ADHD (attention deficit hyperactivity disorder), combined type Take 1 tablet (10 mg) by mouth daily In afternoon as needed 30 tablet 4 024 Discontinued(Re order (No AVS)) amphetamine-dextr oamphetamine (ADDERALL XR) 10 MG 24 hr capsuleIndication s:ADHD (attention deficit hyperactivity disorder), combined type Take 1 capsule (10 mg) by mouth daily. 30 capsule 4 024 Discontinued(Re order (No AVS)) amphetamine-dextr oamphetamine (ADDERALL XR) 10 MG 24 hr capsuleIndication s:ADHD (attention deficit hyperactivity disorder), combined type Take 1 capsule (10 mg) by mouth daily. 30 capsule 4 024 Discontinued(Re order (No AVS)) predniSONE (DELTASONE) 20 MG tabletIndications :Mild persistent asthma with acute exacerbation Take 1 tablet (20 mg) by mouth daily for 5 days. 5 tablet 4 024 benzonatate (TESSALON) 100 MG capsuleIndication s:Acute cough Take 1 capsule (100 mg) by mouth 3 times daily as needed for cough. 15 capsule 4 024 Discontinued Active Problems Problem Noted Date Diagnosed Date Elevated blood pressure read ing without diagnosis of hypertension 11/25/2023 Mild persistent asthma with acute exacerbation 0 11/25/2023 SVT (supraventricular tachycardia) (H24)-since [facility] valdez 04/08/2023 ADHD (attention deficit hype ractivity disorder), combined type 01/10/2023 Overview: 5mg XR 30 tabs pe rmonth 5mg IR 30 tabs per month Dx by [facility] 2022 History of eating disorder 11/12/2022 Overview: As a teen. Inactive now. Anorexia and Bulemia. Depression, unspecified depression type 11/13/19 23 Obesity (BMI 30-39.9) 01/03/2021 Overview: 07/08/2018 BMI 32 History of pre-eclampsia 01/03/2021 Overview: 1st preg Dx 38w9d ega, elevated BP >140/90s with new onset visual changes and headache 03/14/21 daily baby asa recommended starting ad 12 weeks Gestational hypertension 02/14/2020 Mild persistent asthma without complication 06/03 Bronchiectasis without complication 06/30/2015 Generalized anxiety disorder 03/31/2015 Overview: Diagnosis updated by automated process. Provider to review and confirm. Migraine headache 03/13/2010 Overview: (Problem list name updated by automated process. Provider to review and confirm.) Resolved Problems Problem Noted Date Diagnosed Date Resolved Date Female stress incontinence 12/11/2021 0 01/23/2022 (normal spontaneous vaginal delivery) 09/20/2021 11/11/2022 Encounter for induction of labor 09/19/2021 09/20/2021 Labor and delivery indicatio n for care or intervention 09/05/2021 09/20/2021 High-risk , third trimester 08/08/2021 11/11/2022 Overview: Clinic/Hospital: [facility] Partner Name: Gilberto Ultrasound predicts sex: girl Childrens names/ages: Previous labor experiences: epidural, IOL for pre-e, long induction, pushed for 30-45 minutes Waterbirth (interest, declined, ineligible): Level of education/occupation: Pertinent History: PP contraception: POPs Hx PPD/Depression/Anxiety: Ed: Plans for labor pain management: open plan, desires strong communication Plans for post recovery/time off: Feeding preference: Breast Breast pump: Peds provider: Dr. Humera Fragoso Car seat: Circumcision: Discussed 2 week visit: Tdap: Flu: Covid vaccine: Encounter for triage in patient 07/05/2021 09/20/2021 Fall from slipping on ice 07/05/2021 Overview: Monitored in triage 2/3. Obesity affecting in first trimester 05/02/2021 11/11/2022 Overview: Pregravid BMI 36 Plan for weekly BPPs or NSTs at 37wks per MFM (normal spontaneous vaginal delivery) 02/15/2020 09/20/2021 High blood pressure 02/13/2020 11/12/19 23 Moderate asthma with acute exacerbation 04/05/2017 11/25/2023 Panic attack 03/31/2015 11/25/2023 Encounters Date Type Department Care Team Description 03/04/2024 1:30 PM CDT Office Visit [facility] [address] [place] [address] Debbie Jacobs, PAMonetC Mild persistent asthma with acute exacerbation (Primary Dx); Acute cough; Elevated blood pressure reading without diagnosis of hypertension 03/04/2024 [facility] Medical Advice [facility] [place] [address] [place] [address] Debbie Jacobs PA-C 03/04/2024 Travel 03/02/2024 MyC Refill M [address] [place] [phone] Norma Zhang APRN ENGINE CLEANER Refill Request 02/27/2024 MyC Refill M [address] [place] [phone] Norma Zhang APRN ENGINE CLEANER Refill Request 02/13/2024 MyC Refill M [address] [place] [address] Norma Zhang APRN ENGINE CLEANER Refill Request 01/26/2024 MyC Refill M [address] [place] [phone] Norma Zhang APRN ENGINE CLEANER Refill Request 01/22/2024 MyC Refill M [address] [place] [phone] Norma Zhang APRN ENGINE CLEANER Refill Request 01/05/2024 MyC Refill M [address] [place] [phone] Norma Zhang APRN ENGINE CLEANER Refill Request 12/18/2023 Refill M [address] [place] [address] Norma Zhang APRN ENGINE CLEANER Medication Refill from Last 3 Months Immunizations Name Administration Dates Next Due COVID-19 12+ (Pfizer) 03/12/2023 COVID-19 MONOVALENT 12+ (Pfizer) 09/04/2020,07/31 DTAP (<7y) 06/09/1996, 3,1991,10/11,1991 Flu, Unspecified 02/29/2020,03/16/2019 HIB (PRP-T) 02/01/1993, 2,1991,08/05 HPV 06/03/2013,03/26/2012,06/11/2010 HepB 04/20/2015, 5,12/08/1995,05/05,04/02/1995 Influenza (IIV3) PF 01/27/2012, 6,05/10/2002,06/05,03/12/1999 Influenza Intranasal Vaccine 01/25/2009 Influenza Vaccine >6 months,quad, PF 03/12/2023, 03/16/2021,03/10/2019 MMR 09/21/2021, 0(),03/16/2015,12/1996,09/14/1992 Meningococcal (Menomune??) 06/11/2010 OPV, trivalent, live 06/09/1996,02/01/19 93,1991,08/05 Pneumococcal 20 valent Conju gate (Prevnar 20) 11/12/2022 Pneumococcal 23 valent 04/09/2006 TDAP (Adacel,Boostrix) 07/11/2021,06/11/2010 TDAP Vaccine (Adacel) 12/15/2019 Varicella 04/20/2015,03/16/2015,01/25/2009 Family History Medical History Relation Comments Allergies Brother Asthma Brother Diabetes Father Type 2 Hypertension Father Prostate Cancer Father Cancer Maternal Aunt pancreatic age 45 Diabetes Maternal Grandfather Type 2 Heart Failure Maternal Grandfather Cancer Maternal Grandmother lung cancer Diabetes Maternal Grandmother Type 2 Diabetes Mother type 2 Hypertension Mother Cerebrovascular Disease Paternal Grandfather Cerebrovascular Disease Paternal Grandmother Relation Status Comments Brother Alive Father Alive Maternal Aunt Maternal Grandfather Maternal Grandmother Mother Alive Paternal Grandfather stroke Paternal Grandmother suicide Sister Alive Social History Tobacco Use Types Packs/Day Years Used Date Smoking Tobacco: Never Smokeless Tobacco: Never Tobacco Cessation:Counseling Given: Not Answered Alcohol Use Standard Drinks/Week Comments Not Currently 0 (1 standard drink = 0.6 oz pure alcohol) socially, couple times per month Social Connection and Isolation Panel [NHANES] A nswer Date Recorded Frequency of Communication with Friends and Fami ly Not on file 11/24/2023 How often do you get together with friends or re latives? Twice a week 11/24/2023 Attends [employer] Not on file 11/23 Active Member [...] Answer Date Recorded PHQ-2 Score 0 11/25/2023 [facility] - Occupational Stress [...] exercise at this level? 40 min 11/24/2023 [place] Depression Scale Answer Date Recorded [place] Depression Score 3 10/31/2021 Last EPDS Self [...] Date Recorded Do you have housing? (Yony puga is defined as stable permanent housing and does not include staying ouside in a car, in a tent, in an abandoned building, in an overnight retirement, or couch-surfing.) Yes 11/24/2023 Are you worried [...] Sex Assigned at Female 06/06/2018 9:16 PM CHARGEBACK ANALYST Gender Identity Female 06/06/2018 9:16 PM CHARGEBACK ANALYST Sexual Orientation Straight 06/06/2018 9: 16 PM CHARGEBACK ANALYST Last Filed Vital Signs Vital Sign Reading Time Taken Comments Blood Pressure 161/92 03/04/2024 1:29 PM CDT Pulse 103 03/04/2024 1:29 PM CDT Temperature 36.9 ??C (98.5 ??F) 03/04/2024 1:29 PM CD T Respiratory Rate 16 11/25/2023 7:01 AM CDT Oxygen Saturation 98% 03/04/2024 1:29 PM CDT Inhaled Oxygen Concentration - - Weight 95.3 kg (210 lb) 03/04/2024 1:29 PM CDT Height 170.2 cm (5' 7) 11/25/2023 7:01 AM CDT Body Mass Index 32.89 11/25/2023 7:01 AM CDT Plan of Treatment Upcoming Encounters Date Type Department Care Team (Late st Contact Info) Description 11/30/2024 7:00 AM CDT Office Visit [facility] [place] [address] [place] [phone] Norma Zhang APRN ENGINE CLEANER [address] [facility] [place] [address] Health Maintenance Due Date Last Done Comments ASTHMA ACTION PLAN 12/19/2018 12/19/2017, 1 07/28/2015, 05/20/2016, Additional history exists COVID-19 Vaccine ( season) 2024 03/12/2023, 02/25/2022, 04/19/2021, Additional history exists INFLUENZA VACCINE (#1) 2024 , 02/25/2022, 03/16/2021, Additional history exists ASTHMA CONTROL TEST 05/26/2024 11/25/2023, 05/06/2023, 04/08/2023, Additional history exists ANNUAL REVIEW OF HM ORDERS 11/24/202411/24, 11/12/2022, 03/07/2020 BMP 11/24/2024 11/25/2023, 11/0 06/2020, 02/14/2020, Additional history exists YEARLY PREVENTIVE VISIT 11/24/2024 11/25/19 24, 11/12/2022, 01/03/2021, Additional history exists HPV TEST 11/13/2027 11/12/2022 PAP 11/13/2027 11/12/2022, 03/03, 02/13/2017, Additional history exists ADVANCE CARE PLANNING 11/24/2028 11/25/2023 DTAP/TDAP/TD IMMUNIZATION (9 - Td or Tdap) 07/11/2031 07/11/2021, 12/15/2019, 06/11/2010, Additional history exists RSV VACCINE (1 - 1-dose 75+ series) 2066 MENINGITIS IMMUNIZATION Aged Out 06/11/2010 No l onger eligible based on patient's age to complete this topic HPV IMMUNIZATION Completed 06/03/2013, , 06/11/2010 HEPATITIS B IMMUNIZATION Completed 015, 03/16/2015, 12/08/1995, Additional history exists MIGRAINE ACTION PLAN Completed 05/05/2015 HEPATITIS C SCREENING Completed 03/07/2021, 015 HIV SCREENING Completed 03/07/2021, 07/04, 08/31/2014 Pneumococcal Vaccine: Pediatrics (0 to 5 Years) and At-Risk Patients (6 to 64 Years) Completed 11/12/2022, 04/09/2006 PHQ-2 (once per calendar year) Completed 11/25/2023, 04/04/2023, 04/04/2023, Additional history exists RSV MONOCLONAL ANTIBODY Aged Out No l onger eligible based on patient's age to complete this topic Procedures Procedure Name Priority Date/Time Associated Diagnosis Comments BASIC METABOLIC PANEL Add-On 11/25/2023 7:39 AM CDT Elevated blood pressure reading without diagnosis of hypertension GYNECOLOGIC CYTOLOGY Routine 11/12/2022 2:06 PM CDT Cervical cancer screening HPV HIGH RISK TYPES DNA CERVICAL Routine 11/12/2022 2:06 PM CDT Cervical cancer screening HIV ANTIGEN ANTIBODY COMBO Routine 03/07/2021 8:39 AM CDT Supervision of normal HEPATITIS C ANTIBODY Routine 03/07/2021 8:39 AM CDT Supervision of normal ASTHMA ACTION PLAN Routine 05/27/2016 5: 30 PM CHARGEBACK ANALYST from Last 3 Months or Most Recently Relevant to Health Maintenance Results * (ABNORMAL) Basic metabolic panel (Ca, Cl, CO2, Creat, Gluc, K, Na, BUN) (11/25/2023 7:39 AM CDT) Sodium 141 135 - 145 mmol/L 11/27/2023 3:16 PM CDT [facility] Potassium 4.0 3.4 - 5.3 mmol/L 11/27/2023 3:16 PM CDT [facility] Chloride 105 98 - 107 mmol/L 11/27/2023 3:16 PM CDT [facility] Carbon Dioxide (CO2) 21(L) 22 - 29 mmol/L 11/27/2023 3:16 PM CDT [facility] Anion Gap 15 7 - 15 mmol/L 11/27/2023 3:16 PM CDT [facility] Urea Nitrogen 14.6 6.0 - 20.0 mg/dL 11/27/2023 3:16 PM CDT [facility] Creatinine 0.91 0.51 - 0.95 mg/dL 11/27/2023 3:16 PM CDT [facility] GFR Estimate 86 >60 mL/min/1.7 3m2 11/27/2023 3:16 PM CDT [facility] Comment:eGFR calculated 2020 CKD-EPI equation. Calcium 9.0 8.6 - 10.0 mg/dL 11/27/2023 3:16 PM CDT [facility] Glucose 91 70 - 99 mg/dL 11/27/2023 3:16 PM CDT [facility] Patient Fasting > 8hrs? No 11/27/2023 3:16 PM CDT [facility] Blood STRUCTURE OF RIGHT UPPER LIMB / Unknown Venipuncture / Unknown 11/25/2023 7:39 AM CDT 11/25/2023 8:19 AM CDT Norma Zhang APRN ENGINE CLEANER LAB - BLOOD ORDERABLES [facility] [place] [facility] [address] [facility], [address] [address] * Pap Screen with HPV - recommended age 30 - 65 years (11/12/2022 2:06 PM CDT) Interpretation Negative for Intraepithelial Lesion or Malignancy (NILM) 11/15/2022 9:22 AM CDT [facility] Comment Papanicolaou Test Limitations: Cervical cytology is a screening test with limited sensitivity, and regular screening is critical for cancer prevention. Pap tests are primarily effective for the diagnosis/prevent ion of squamous cell carcinoma, not adenocarcinoma or other cancers. 11/15/2022 9:22 AM CDT [facility] Specimen Adequacy Satisfactory for evaluation, endocervical/bar sformation zone component present 11/15/2022 9:22 AM CDT [facility] Clinical Information none 11/15/2022 9:22 AM CDT [facility] Reflex Testing Yes regardless of result 11/15/2022 9:22 AM CDT [facility] Previous Abnormal? No 11/15/2022 9:22 AM CDT [facility] Performing Labs The technical component of this testing was completed at [facility] 11/15/2022 9:22 AM CDT [facility] Brushing CERVIX UTERI STRUCTURE / Unknown 11/12/2022 2:06 PM CDT 11/12/2022 2:36 PM CDT Norma Zhang APRN ENGINE CLEANER LAB - OSBALDOAKER AP [facility] Specialty Lab [address] [facility], [address] [address], [facility] [phone] * HPV High Risk Types DNA Cervical (11/12/2022 2:06 PM CDT) Other HR HPV Negative Negative 11/19/2022 1:13 PM CDT [facility] HPV16 DNA Negative Negative 11/19/2022 1:13 PM CDT [facility] HPV18 DNA Negative Negative 11/19/2022 1:13 PM CDT [facility] FINAL DIAGNOSIS This patient's sample is negative for HPV DNA. This test was developed and its performance characteristics determined by the [facility]. It has not been cleared or approved by the FDA. The laboratory is regulated under CLIA as qualified to perform high-complexity testing. This test is used for clinical purposes. It should not be regarded as investigational or for research. METHODOLOGY: The Olga Oralia 4800 system uses automated extraction, simultaneous amplification of HPV (L1 region) and beta-globin, followed by real time detection of fluorescent labeled HPV and beta globin using specific oligonucleotide probes. The test specifically identifies types HPV 16 DNA and HPV 18 DNA while concurrently detecting the rest of the high risk types (31, 33, 35, 39, 45, 51, 52, 56, 58, 59, 66 or 68). COMMENTS: This test is not intended for use as a screening device for woman under age 30 with normal cervical cytology. Results should be correlated with cytologic and histologic findings. Close clinical followup is recommended. 11/19/2022 1:13 PM CDT [facility] Brushing CERVIX UTERI STRUCTURE / Unknown Non-blood Collection / Unknown 11/12/2022 2:06 PM CDT 11/18/2022 8:05 AM CDT Norma Zhang APRN [employer] LAB - BLOOD ORDERABLES [facility] Molecular Diagnostics [address] [facility], [address] [place] [address], [facility] [phone] * HIV Antigen Antibody Combo (03/07/2021 8:39 AM CDT) HIV Antigen Antibody Combo Nonreactive Nonreactive 03/08/2021 1:40 PM CDT [facility] Comment:HIV-1 p24 Ag & HIV-1 /HIV-2 Ab Not Detected Blood STRUCTURE OF LEFT UPPER LIMB / Unknown Venipuncture / Unknown 03/07/2021 8:39 AM CDT 03/07/2021 8:39 AM CDT Araceli Jolley [facility] - BLOOD ORD ERABLES [facility] Special[facility] Core Lab [address] [facility], [address] [place] [address], [facility] [phone] * Hepatitis C antibody (03/07/2021 8:39 AM CDT) Hepatitis C Antibody Nonreactive Nonreactive 03/08/2021 1:40 PM CDT [facility] Blood STRUCTURE OF LEFT UPPER LIMB / Unknown Venipuncture / Unknown 03/07/2021 8:39 AM CDT 03/07/2021 8:39 AM CDT Narrative [facility] - 03/08/2021 1:40 PM CDT Assay performance characteristics have not been established for newborns, infants, and children. Araceli Jolley [facility] - BLOOD ORD ERABLES [facility] Specialty Core Lab [address] [facility], [address] [place] [address], [facility] [phone] from Last 3 Months or Most Recently Relevant to Health Maintenance Advance Directives For more information, please contact: [phone] * Full Code (Latest Code Status on File) Date Activated Date Inactivated Comments 09/19/2021 1:11 PM 09/22/2021 12:34 AM All basic a nd advanced life-sustaining interventions are performed as appropriate Question Answer Comments Code status determined by: Discussion with marlene nt/ legal decision maker Care Teams Physical Therapy Aide Relationship Specialty Start Date End Date Norma Zhang APRN ENGINE CLEANER [address] [facility] [place] [address] PCP - General Nurse Practitioner 11/30/18 Norma Zhang APRN ENGINE CLEANER [address] [facility] [place] [address] Assigned PCP 06/22/22 Irineo Lebron, PhD [address] [place] [address] Assigned Behavioral Health Provider 11/23/22
--- OUTSIDE RECORDS SUMMARY | 2024-03-13 22:06 | XMS_ITS | Encounter Summary ---
Author Organization [facility] Address [address] [place] [address]. [place] [address] Care Team Providers Care Budget Manager Name Role Phone Norma Zhang APRN CARBIDE DIE MAKER Primary Car e Provider Norma Zhang APRN CARBIDE DIE MAKER Unavailable Irineo Lebron PhD Unavailable [phone] Encounter Details Date Type Department Care Team (Late st Contact Info) Description 03/04/2024 [facility] Medical Advice [facility] [place] [id number] [place] [phone] Debbie Jacobs, PAMonetC Social History Tobacco Use Types Packs/Day Years [...] re latives? Twice a week 11/24/2023 Attends [employer] Not on file 11/23 Active Member [...] Answer Date Recorded PHQ-2 Score 0 11/25/2023 [facility] - Occupational Stress Questionnaire Answer Date [...] exercise at this level? 40 min 11/24/2023 [place] Depression Scale Answer Date Recorded [place] Depression Score 3 10/31/2021 Last EPDS Self [...] in an abandoned building, in an overnight penitentiary, or couch-surfing.) Yes 11/24/2023 Are you worried [...] Sex Assigned at Female 06/06/2018 9:16 PM MECHANICAL EQUIPMENT TEST ENGINEER Gender Identity Female 06/06/2018 9:16 PM MECHANICAL EQUIPMENT TEST ENGINEER Sexual Orientation Straight 06/06/2018 9: 16 PM MECHANICAL EQUIPMENT TEST ENGINEER documented as of this encounter Plan of Treatment Upcoming Encounters Date Type Department Care Team (Late st Contact Info) Description 11/30/2024 7:00 AM CDT Office Visit [facility] [place] [address] [place] [address] Drive [address] [place] [phone] Norma Zhang APRN CARBIDE DIE MAKER [address] [place] [address] [place] [id number] documented as of this encounter Visit Diagnoses Not on filedocumented in this encounter Additional Health Concerns Assessment Noted Time PHQ-9 Depression Total Score: 2 04/04/20 23 10:40 AM CDT documented as of this encounter Care Teams Budget Manager Relationship Specialty Start Date End Date Norma Zhang APRN CARBIDE DIE MAKER [address] [place] [address] [place] [address] PCP - General Nurse Practitioner 11/30/18 Norma Zhang APRN CARBIDE DIE MAKER [address] [place] [address] [place] [address] Assigned PCP 06/22/22 Irineo Lebron, PhD [address] [place] [place] [address] Assigned Behavioral Health Provider 11/23/22 documented as of this encounter
--- OUTSIDE RECORDS SUMMARY | 2024-03-13 22:06 | XMS_ITS | Encounter Summary ---
Author Organization [facility] Address [address] [place] [address]. [place] [address] Care Team Providers Care Dobby Loom Fixer Name Role Phone Norma Zhang APRN REED FIXER Primary Car e Provider Norma Zhang APRN REED FIXER Unavailable Irineo Lebron PhD Unavailable [phone] Reason for Visit * Reason Comments Urgent Care X6 Days cough, body aches, chills, throat pain,sinus pressure,ears feels plugged, nasal congestion, green mucus, lost voice, decreased appetite, taking tylenol , ibuprofen, mucinex, benadryl Kids had cold symptoms last week Encounter Details Date Type Department Care Team (Late st Contact Info) Description 03/04/2024 1:30 PM CDT Office Visit [facility] [place] [address] [place] [address] Debbie Jacobs PA-C Mild persistent asthma with acute exacerbation (Primary Dx); Acute cough; Elevated blood pressure reading without diagnosis of hypertension Social History Tobacco Use Types Packs/Day Years [...] re latives? Twice a week 11/24/2023 Attends [employer] Services Not on file 11/23 Active Member [...] Answer Date Recorded PHQ-2 Score 0 11/25/2023 [facility] - [...] exercise at this level? 40 min 11/24/2023 [place] Depression Scale Answer Date Recorded [place] Depression Score 3 10/31/2021 Last EPDS Self [...] Answer Date Recorded Do you have housing? ([place] is defined as stable permanent housing [...] Sex Assigned at Female 06/06/2018 9:16 PM PHYSIOTHERAPIST'S ASSISTANT Gender Identity Female 06/06/2018 9:16 PM PHYSIOTHERAPIST'S ASSISTANT Sexual Orientation Straight 06/06/2018 9: 16 PM PHYSIOTHERAPIST'S ASSISTANT documented as of this encounter Last Filed Vital Signs Vital Sign Reading Time Taken Comments Blood Pressure 161/92 03/04/2024 1:29 PM CDT Pulse 103 03/04/2024 1:29 PM CDT Temperature 36.9 ??C (98.5 ??F) 03/04/2024 1:29 PM CD T Respiratory Rate - - Oxygen Saturation 98% 03/04/2024 1:29 PM CDT Inhaled Oxygen Concentration - - Weight 95.3 kg (210 lb) 03/04/2024 1:29 PM CDT Height - - Body Mass Index 32.89 11/25/2023 7:01 AM CDT documented in this encounter Progress Notes * Debbie Jacobs PA-C - 03/04/2024 1:30 PM CDT Assessment & Plan: ICD-10-CM 1. Mild persistent asthma with acute exacerbation J45.31 predniSONE (DELTASONE) 20 MG tablet 2. Acute cough R05.1 benzonatate (TESSALON) 200 MG capsule DISCONTINUED: benzonatate (TESSALON) 100 MG capsule 3. Elevated blood pressure reading without diagnosis of hypertension R03.0 Plan/Clinical Decision Making: Pt is presenting with cold like symptoms for the past 6 days. Pt has a history of asthma and bronchiectasis. Both of her children currently have a URI. Lungs are positive for wheezing. Oxygenating at98%. Pt has at home nebs available. Pt denied in house testing for COVID, flu or strep. Symptoms are consistent with a mild asthma exacerbation due to acute viral illness. We prescribed prednisone and benzonatate. We reviewed side effects of prednisone with pt. Pt has been advised to follow up in 4-5 days if needed or to seek emergent care with sudden or worsening symptoms. BP elevated today. Last visit under better control. Continue to monitor. At the end of the encounter, I discussed results, diagnosis, medications. Discussed red flags for immediate return to clinic/ER, as well as indications for follow up if no improvement. Patient understood and agreed to plan. Patient was stable for discharge. REENA Aragon PA-C on 03/04/2024 at 1:48 PM Physician Attestation I, Debbie Jacobs PA-C, was present with the medical/WILLOW student who participated in the service and in the documentation of the note. I have verified the history and personally performed the physical exam and medical decision making. I agree with the assessment and plan of care as documented in t he note. Debbie Jacobs PA-C Subjective: HPI: Lou is a 33 year old female who presents to clinic today for the following health issues: Chief Complaint Patient presents with Urgent Care X6 Days cough, body aches, chills, throat pain,sinus pressure,ears feels plugged, nasal congestion,green mucus, lost voice, decreased appetite, taking tylenol , ibuprofen, mucinex, benadryl Kids had cold symptoms last week HPI Pt is presenting with cold like symptoms for the past 6 days. She is experiencing chills, diaphoresis, fatigue, congestion, sore throat, postnasal drip, productive cough, wheezing, SOB, loss of voice, decreased appetite, intermittent left sided pleuritic chest pain, body aches, sinus pressure and rh inorrhea. She has a history of asthma and bronchiectasis. She does not check her O2 at home, in clinic O2 is 98%. She has been doing multiple at home nebs a day which have been helpful. She has also been taking ibuprofen, tylenol, mucinex and benadryl. She reports both of her children had URIs lastweek and both are still sick. She does not smoke. Does have a history of seasonal allergies and reflux. Review of Systems Constitutional: Positive for appetite change, chills, diaphoresis and fatigue. Negative for fever. HENT: Positive for congestion, postnasal drip, rhinorrhea, sinus pressure and sore throat. Negativefor ear discharge, ear pain, hearing loss, sinus pain and trouble swallowing. Pressure in ears Eyes: Negative for photophobia, pain, discharge, redness, itching and visual disturbance. Respiratory: Positive for cough (productive), shortness of breath and wheezing. Negative for stridor. Cardiovascular: Positive for chest pain (left sided pleuritc). Negative for leg swelling. Gastrointestinal: Positive for nausea. Negative for abdominal pain and vomiting. Skin: Negative for rash. Neurological: Negative for dizziness, light-headedness and headaches. Patient Active Problem List Diagnosis Migraine headache Generalized anxiety disorder Mild persistent asthma without complication Bronchiectasis without complication (H) Gestational hypertension Obesity (BMI 30-39.9) History of pre-eclampsia History of eating disorder Depression, unspecified depression type ADHD (attention deficit hyperactivity disorder), combined type SVT (supraventricular tachycardia) (H24)-since childhood Elevated blood pressure reading without diagnosis of hypertension Mild persistent asthma with acute exacerbation Past Medical History: Diagnosis Date Asthma Bronchiectasis (H) Depressive disorder Gastroesophageal reflux disease High blood pressure 02/13/2020 PIH with first PONV (postoperative nausea and vomiting) Varicella Social History Tobacco Use Smoking status: Never Smokeless tobacco: Never Substance Use Topics Alcohol use: Not Currently Comment: socially, couple times per month BP Readings from Last 6 Encounters: 03/04/24 (!) 161/92 11/25/23 126/86 07/12/23 (!) 147/79 04/29/23 (!) 138/90 03/12/23 (!) 132/90 11/12/22 124/82 Objective: Vitals: 03/04/24 1329 BP: (!) 161/92 Pulse: 103 Temp: 98.5 ??F (36.9 ??C) TempSrc: Tympanic SpO2: 98% Weight: 95.3 kg (210 lb) Physical Exam Constitutional: General: She is not in acute distress. Appearance: She is normal weight. HENT: Head: Normocephalic and atraumatic. Right Ear: Tympanic membrane, ear canal and external ear normal. There is no impacted cerumen. Left Ear: Tympanic membrane, ear canal and external ear normal. There is no impacted cerumen. Mouth/Throat: Mouth: Mucous membranes are moist. Pharynx: Oropharynx is clear. Posterior oropharyngeal erythema (mild) present. No oropharyngeal exudate. Eyes: General: No scleral icterus. Right eye: No discharge. Left eye: No discharge. Extraocular Movements: Extraocular movements intact. Conjunctiva/sclera: Conjunctivae normal. Cardiovascular: Heart sounds: Normal heart sounds. Pulmonary: Breath sounds: No stridor. Wheezing (left sided) present. No rhonchi or rales. Musculoskeletal: Cervical back: Neck supple. No tenderness. Lymphadenopathy: Cervical: No cervical adenopathy. Skin: General: Skin is warm and moist. Neurological: Mental Status: She is alert. Results: No results found for any visits on 03/04/24. documented in this encounter Plan of Treatment Upcoming Encounters Date Type Department Care Team (Late st Contact Info) Description 11/30/2024 7:00 AM CDT Office Visit [facility] [place] [address] [place] [address] Drive [address] [place] [address] Norma Zhang APRN REED FIXER [address] [place] [address] [place] [address] documented as of this encounter Visit Diagnoses Diagnosis Mild persistent asthma with acute exacerbation- Primary Unspecified asthma, with exacerbation Acute cough Elevated blood pressure reading without diagnosis of hypertension documented in this encounter Additional Health Concerns Assessment Noted Time PHQ-9 Depression Total Score: 2 04/04/20 23 10:40 AM CDT documented as of this encounter Care Teams Dobby Loom Fixer Relationship Specialty Start Date End Date Norma Zhang APRN REED FIXER [address] [place] [address] [place] [address] PCP - General Nurse Practitioner 11/30/18 Norma Zhang APRN REED FIXER [address] [facility] [place] [address] Assigned PCP 06/22/22 Irineo Lebron, PhD [address] [place] [address] Assigned Behavioral Health Provider 11/23/22 documented as of this encounter
--- OUTSIDE RECORDS SUMMARY | 2024-03-13 22:06 | XMS_ITS | Referral Summary ---
Author Organization [facility] Address [address] [place] [address]. [place] [address] Care Team Providers Care Glove Machine Operator Name Role Phone Norma Zhang APRN CREPE MAKER Primary Car e Provider Norma Zhang APRN, CNP Unavailable Irineo Lebron PhD Unavailable [phone] Encounters Date Type Department Care Team Description 03/04/2024 MyC Medical Advice [facility] [address] [place] [phone] Debbie Jacobs PA-C 03/04/2024 Travel 03/04/2024 1:30 PM CDT Office Visit [facility] [address] [place] [phone] Debbie Jacobs PA-C Mild persistent asthma with acute exacerbation (Primary Dx); Acute cough; Elevated blood pressure reading without diagnosis of hypertension 03/02/2024 MyC Refill [address] [place] [address] Norma Zhang APRN CREPE MAKER Refill Request 02/27/2024 MyC Refill [facility] [address] [facility] [address] [place] [address] Norma Zhang APRN CNP Refill Request 02/13/2024 MyC Refill [address] [place] [address] Norma Zhang APRN CREPE MAKER Refill Request 01/26/2024 MyC Refill [facility] [address] [place] [address] [address] [place] [address] Norma Zhang APRN CREPE MAKER Refill Request 01/22/2024 MyC Refill [facility] [address] [place] [address] [address] [place] [address] Norma Zhang APRN CREPE MAKER Refill Request 01/05/2024 MyC Refill [facility] [address] [place] [address] [address] [place] [address] Norma Zhang APRN CREPE MAKER Refill Request 12/18/[address] [place] [address] Norma Zhang APRN CREPE MAKER Medication Refill from Last 3 Months Allergies Active Allergy Reactions Criticality Noted Date [...] vaginally every 28 days 3 each 3 06/25/202 4 Active fluticasone-salme terol (ADVAIR HFA) 230-21 [...] , third trimester 08/08/2021 11/11/2022 Overview: Clinic/Hospital: [facility] Partner Name: Gil[facility]to Ultrasound predicts sex: [...] exacerbation 04/05/2017 11/25/2023 Panic attack 03/31/2015 11/25/2023 Immunizations Name Administration Dates Next Due COVID-19 [...] 07/11/2021,06/11/2010 TDAP Vaccine (Adacel) 12/15/2019 Varicella 04/20/2015,03/16/2015,01/25/2009 Social History Tobacco Use Types Packs/Day Years [...] re latives? Twice a week 11/24/2023 Attends [employer] Services Not on file 06/24 /2024 Active Member of Clubs or Organizations Not [...] Answer Date Recorded PHQ-2 Score 0 11/25/2023 [facility] Health - Occupational Stress Questionnaire Answer Date [...] exercise at this level? 40 min 11/24/2023 [place] Depression Scale Answer Date Recorded [place] Depression Score 3 10/31/2021 Last EPDS Self [...] in an abandoned building, in an overnight usp, or couch-surfing.) Yes 11/24/2023 Are you worried [...] Sex Assigned at Female 06/06/2018 9:16 PM MOTORBOAT MECHANIC INBOARD/OUTBOARD Gender Identity Female 06/06/2018 9:16 PM MOTORBOAT MECHANIC INBOARD/OUTBOARD Sexual Orientation Straight 06/06/2018 9: 16 PM MOTORBOAT MECHANIC INBOARD/OUTBOARD Last Filed Vital Signs Vital Sign Reading [...] Description 11/30/2024 7:00 AM CDT Office Visit [facility] [place] [address] [place] [address] Norma Zhang APRN [facility] [address] [facility] [place] [address] Procedures Procedure Name Priority Date/Time Associated Diagnosis [...] ACTION PLAN Routine 05/27/2016 5: 30 PM MOTORBOAT MECHANIC INBOARD/OUTBOARD from Last 3 Months or Most Recently Relevant to Health Maintenance Results * (ABNORMAL) Basic metabolic panel (Ca, Cl, CO2, Creat, Gluc, K, Na, BUN) (11/25/2023 7:39 AM CDT) Pathologist [facility] Sodium 141 135 - 145 mmol/L 11/27/2023 [...] 3:16 PM CDT [facility] Comment:eGFR calculated usin 2020 CKD-EPI equation. Calcium 9.0 8.6 - 10.0 mg/dL 11/27/2023 3:16 PM CDT [facility] Glucose 91 70 - 99 mg/dL 11/27/2023 3:16 PM CDT [facility] Patient Fasting > 8hrs? No 11/27/2023 3:16 PM CDT [facility] Blood STRUCTURE OF RIGHT UPPER LIMB / Unknown Venipuncture / Unknown 11/25/2023 7:39 AM CDT 11/25/2023 8:19 AM CDT Norma Zhang APRN CREPE MAKER LAB - BLOOD ORDERABLES [facility] [address] [facility], [address] [place] [id number] * Pap Screen with HPV - recommended age 30 - 65 years (11/12/2022 2:06 PM CDT) Interpretation Negative for Intraepithelial Lesion or Malignancy (NILM) 11/15/2022 9:22 AM CDT [facility] Comment Papanicolaou Test Limitations: Cervical cytology [...] component of this testing was completed at [facility] 11/15/2022 9:22 AM CDT [facility] Brushing CERVIX UTERI STRUCTURE / Unknown 11/12/2022 2:06 PM CDT 11/12/2022 2:36 PM CDT Norma Zhang APRN CREPE MAKER LAB - BEAKER AP [facility] Specialty Lab [address] [facility] [address], [address] [place] [address], [facility] [phone] * HPV High Risk Types DNA Cervical (11/12/2022 2:06 PM CDT) Other HR HPV Negative Negative 11/19/2022 1:13 PM CDT [facility] HPV16 DNA Negative Negative 11/19/2022 1:13 PM CDT [facility] HPV18 DNA Negative Negative 11/19/2022 1:13 PM CDT [facility] FINAL DIAGNOSIS This patient's sample is negative for HPV DNA. This test was developed and its performance characteristics determined by the [facility]. It has not [...] CDT 11/18/2022 8:05 AM CDT Norma Zhang APRN, CNP LAB - BLOOD ORDERABLES [facility] [address] [facility] [address] [facility], [address] [place] [address], [facility] [phone] * HIV Antigen Antibody Combo (03/07/2021 8:39 AM CDT) HIV Antigen Antibody Combo Nonreactive Nonreactive 03/08/2021 1:40 PM CDT [facility] Comment:HIV-1 p24 Ag & HIV-1 /HIV-2 Ab Not Detected Blood STRUCTURE OF LEFT UPPER LIMB / Unknown Venipuncture / Unknown 03/07/2021 8:39 AM CDT 03/07/2021 8:39 AM CDT Araceli Jolley [facility] LAB - BLOOD ORD ERABLES [facility] Specialty Core Lab [address] [facility], [address] [place] [address], [facility] [phone] * Hepatitis C antibody (03/07/2021 8:39 AM CDT) Pathologist [facility] Hepatitis C Antibody Nonreactive Nonreactive 03/08/2021 1:40 PM CDT [facility] Blood STRUCTURE OF LEFT UPPER LIMB / Unknown Venipuncture / Unknown 03/07/2021 8:39 AM CDT 03/07/2021 8:39 AM CDT Narrative [facility] - 03/08/2021 1:40 PM CDT Assay performance characteristics have not been established for newborns, infants, and children. Araceli Burleson Shola [facility] LAB - BLOOD ORD ERABLES [facility] Specialty Core Lab [address] [facility], [address] [place] [address], [facility] [phone] from Last 3 Months or Most Recently Relevant to Health Maintenance Advance Directives For more information, please contact: [phone] * Full Code (Latest Code Status on File) Date Activated Date Inactivated Comments 09/19/2021 1:11 PM 09/22/2021 12:34 AM All basic a nd advanced life-sustaining interventions are performed as appropriate Question Answer Comments Code status determined by: Discussion with marlene nt/ legal decision maker Care Teams Glove Machine Operator Relationship Specialty Start Date End Date Norma Zhang APRN CREPE MAKER [address] [place] [address] [place] [address] PCP - General Nurse Practitioner 11/30/18 Norma Zhang APRN CREPE MAKER [address] [place] [address] [place] [address] Assigned PCP 06/22/22 Irineo Lebron, PhD [address] [facility] [place] [address] Assigned Behavioral Health Provider 11/23/22
--- OUTSIDE RECORDS SUMMARY | 2024-03-13 22:06 | XMS_ITS | Encounter Summary ---
Author Organization [facility] Address [address] [place] [address]. [place] [address] Care Team Providers Care Sand Caster Apprentice Name Role Phone Norma Zhang APRN HEALTH CARE ATTORNEY Primary Car e Provider Norma Zhang APRN HEALTH CARE ATTORNEY Unavailable Irineo Lebron PhD Unavailable [phone] Reason for Visit * Reason Onset Date Comments Refill Request 01/22/2024 Encounter Details Date Type Department Care Team (Late st Contact Info) Description 01/22/2024 [facility] [address] [facility] [address] [place] [address] Norma Zhang APRN HEALTH CARE ATTORNEY [address] [facility] [place] [phone] Refill Request Social History Tobacco Use Types [...] re latives? Twice a week 11/24/2023 Attends Confucianist Services Not on file 11/23 Active Member [...] Answer Date Recorded PHQ-2 Score 0 11/25/2023 [facility] Occupat ional Health - Occupational Stress [...] exercise at this level? 40 min 11/24/2023 Man Depression Scale Answer Date Recorded Man Depression Score 3 10/31/2021 Last EPDS Self [...] in an abandoned building, in an overnight group home, or couch-surfing.) Yes 11/24/2023 Are you worried [...] Sex Assigned at Female 06/06/2018 9:16 PM TRAUMA DOCTOR Gender Identity Female 06/06/2018 9:16 PM TRAUMA DOCTOR Sexual Orientation Straight 06/06/2018 9: 16 PM TRAUMA DOCTOR documented as of this encounter Plan of Treatment Upcoming Encounters Date Type Department Care Team (Late st Contact Info) Description 11/30/2024 7:00 AM CDT Office Visit [facility] [place] [address] [place] [address] Drive [address] [place] [address] Norma Zhang APRN HEALTH CARE ATTORNEY [address] [place] [address] [place] [address] documented as of this encounter Visit Diagnoses Diagnosis ADHD (attention deficit hyperactivity disorder), combined type Attention deficit disorder with hyperactivity documented in this encounter Additional Health Concerns Assessment Noted Time PHQ-9 Depression Total Score: 2 04/04/20 23 10:40 AM CDT documented as of this encounter Care Teams Sand Caster Apprentice Relationship Specialty Start Date End Date Norma Zhang APRN HEALTH CARE ATTORNEY [address] [place] [address] [place] [address] PCP - General Nurse Practitioner 11/30/18 Norma Zhang APRN HEALTH CARE ATTORNEY [address] [place] [address] [place] [address] Assigned PCP 06/22/22 Irineo Lebron, PhD [address] [place] [address] Assigned Behavioral Health Provider 11/23/22 documented as of this encounter
--- OUTSIDE RECORDS SUMMARY | 2024-03-13 22:06 | XMS_ITS | Encounter Summary ---
Author Organization [facility] Address [address] [place] [address]. [place] [address] Care Team Providers Care Porter Marina Name Role Phone Norma Zhang APRN CURBER Primary Car e Provider Norma Zhang APRN CURBER Unavailable Irineo Lebron PhD Unavailable [phone] Reason for Visit * Reason Onset Date Comments Refill Request 01/26/2024 Encounter Details Date Type Department Care Team (Late st Contact Info) Description [facility] [address] [facility] [address] [place] [address] Norma Zhang APRN CURBER [address] [facility] [place] [id number] Refill Request Social History Tobacco Use Types [...] re latives? Twice a week 11/24/2023 Attends [employer] Services Not on file 11/23 Active Member [...] Answer Date Recorded PHQ-2 Score 0 11/25/2023 [facility] Occupat ional Health - Occupational Stress [...] exercise at this level? 40 min 11/24/2023 [place] Depression Scale Answer Date Recorded [place] Depression Score 3 10/31/2021 Last EPDS Self [...] in an abandoned building, in an overnight prison, or couch-surfing.) Yes 11/24/2023 Are you worried [...] Sex Assigned at Female 06/06/2018 9:16 PM SOLE SKIVER Gender Identity Female 06/06/2018 9:16 PM SOLE SKIVER Sexual Orientation Straight 06/06/2018 9: 16 PM SOLE SKIVER documented as of this encounter Plan of Treatment Upcoming Encounters Date Type Department Care Team (Late st Contact Info) Description 11/30/2024 7:00 AM CDT Office Visit [facility] [place] [address] [place] [address] Drive [address] [place] [address] Norma Zhang APRN CURBER [address] [place] [address] [place] [address] documented as of this encounter Visit Diagnoses Diagnosis ADHD (attention deficit hyperactivity disorder), combined type Attention deficit disorder with hyperactivity documented in this encounter Additional Health Concerns Assessment Noted Time PHQ-9 Depression Total Score: 2 04/04/20 23 10:40 AM CDT documented as of this encounter Care Teams Porter Marina Relationship Specialty Start Date End Date Norma Zhang APRN CURBER [address] [place] [address] [place] [address] PCP - General Nurse Practitioner 11/30/18 Norma Zhang APRN CURBER [address] [place] [address] [place] [address] Assigned PCP 06/22/22 Irineo Lebron, PhD [address] [place] [address] Assigned Behavioral Health Provider 11/23/22 documented as of this encounter
--- OUTSIDE RECORDS SUMMARY | 2024-03-13 22:06 | XMS_ITS | Encounter Summary ---
Author Organization [facility] Address [address] [place] [address]. [place] [address] Care Team Providers Care Skoog Patching Machine Operator Name Role Phone Norma Zhang APRN FIELD STAFF Primary Car e Provider Norma Zhang APRN FIELD STAFF Unavailable Irineo Lebron PhD Unavailable [phone] Reason for Visit * Reason Onset Date Comments Refill Request 02/13/2024 Encounter Details Date Type Department Care Team (Late st Contact Info) Description 02/13/[address] [facility] [address] [place] [address] Norma Zhang APRN FIELD STAFF [address] [facility] [place] [phone] Refill Request Social History Tobacco Use Types [...] re latives? Twice a week 11/24/2023 Attends [employer] Not on file 11/23 Active Member [...] Answer Date Recorded PHQ-2 Score 0 11/25/2023 [facility] - Occupational [...] exercise at this level? 40 min 11/24/2023 [place] Depression Scale Answer Date Recorded [place] Depression Score 3 10/31/2021 Last EPDS Self [...] in an abandoned building, in an overnight mcfp, or couch-surfing.) Yes 11/24/2023 Are you worried [...] Sex Assigned at Female 06/06/2018 9:16 PM CAR RENTAL CLERK Gender Identity Female 06/06/2018 9:16 PM CAR RENTAL CLERK Sexual Orientation Straight 06/06/2018 9: 16 PM CAR RENTAL CLERK documented as of this encounter Miscellaneous Notes * Telephone Encounter - Tammie Ramirez NP - 02/13/2024 9:02 AM CDT siebel administrator reviewed Last filled 01/05/24 documented in this encounter Plan of Treatment Upcoming Encounters Date Type Department Care Team (Late st Contact Info) Description 11/30/2024 7:00 AM CDT Office Visit [facility] [address] [place] [address] Drive [address] [place] [address] Norma Zhang APRN FIELD STAFF [address] [place] [address] [place] [address] documented as of this encounter Visit Diagnoses Diagnosis ADHD (attention deficit hyperactivity disorder), combined type Attention deficit disorder with hyperactivity documented in this encounter Additional Health Concerns Assessment Noted Time PHQ-9 Depression Total Score: 2 04/04/20 23 10:40 AM CDT documented as of this encounter Care Teams Skoog Patching Machine Operator Relationship Specialty Start Date End Date Norma Zhang APRN FIELD STAFF [address] [place] [address] [place] [address] PCP - General Nurse Practitioner 11/30/18 Norma Zhang APRN FIELD STAFF [address] [facility] [place] [address] Assigned PCP 06/22/22 Irineo Lebron, PhD [address] [place] [address] Assigned Behavioral Health Provider 11/23/22 documented as of this encounter
--- OUTSIDE RECORDS SUMMARY | 2024-03-13 22:06 | XMS_ITS | Encounter Summary ---
Author Organization [facility] Address [address] [place] [address]. [place] [address] Care Team Providers Care Needle Leader Name Role Phone Norma Zhang APRN CHILD CARE SUPERVISOR Primary Car e Provider Norma Zhang APRN CHILD CARE SUPERVISOR Unavailable Irineo Lebron PhD Unavailable [phone] Reason for Visit * Reason Onset Date Comments Refill Request 03/02/2024 Encounter Details Date Type Department Care Team (Late st Contact Info) Description 03/02/2024 [facility] [address] [place] [address] Norma Zhang APRN CHILD CARE SUPERVISOR [address] [facility] [place] [phone] Refill Request Social History Tobacco Use Types [...] re latives? Twice a week 11/24/2023 Attends [employer] Not on file 11/23 Active Member [...] Answer Date Recorded PHQ-2 Score 0 11/25/2023 [facility] - Occupational [...] exercise at this level? 40 min 11/24/2023 [place] Depression Scale Answer Date Recorded [place] Depression Score 3 10/31/2021 Last EPDS Self [...] in an abandoned building, in an overnight residential, or couch-surfing.) Yes 11/24/2023 Are you worried [...] Sex Assigned at Female 06/06/2018 9:16 PM TECHNICAL MANAGER Gender Identity Female 06/06/2018 9:16 PM TECHNICAL MANAGER Sexual Orientation Straight 06/06/2018 9: 16 PM TECHNICAL MANAGER documented as of this encounter Plan of Treatment Upcoming Encounters Date Type Department Care Team (Late st Contact Info) Description 11/30/2024 7:00 AM CDT Office Visit [facility] [place] [address] [place] [address] Drive [address] [place] [address] Norma Zhang APRN CHILD CARE SUPERVISOR [address] [place] [address] [place] [address] documented as of this encounter Visit Diagnoses Diagnosis ADHD (attention deficit hyperactivity disorder), combined type Attention deficit disorder with hyperactivity documented in this encounter Additional Health Concerns Assessment Noted Time PHQ-9 Depression Total Score: 2 04/04/20 23 10:40 AM CDT documented as of this encounter Care Teams Needle Leader Relationship Specialty Start Date End Date Norma Zhang APRN CHILD CARE SUPERVISOR [address] [place] [address] [place] [address] PCP - General Nurse Practitioner 11/30/18 Norma Zhang APRN CHILD CARE SUPERVISOR [address] [place] [address] [place] [address] Assigned PCP 06/22/22 Irineo Lebron, PhD [address] [place] [address] Assigned Behavioral Health Provider 11/23/22 documented as of this encounter
--- OUTSIDE RECORDS SUMMARY | 2024-03-13 22:07 | XMS_ITS | Encounter Summary ---
Author Organization [facility] Address [address] [place] [address]. [place] [address] Care Team Providers Care Glove Finisher Name Role Phone Norma Zhang APRN EQUIPMENT TESTER Primary Car e Provider Perry Milan MD Unavailable [phone] Jael Hess CNM Unavailable [phone] Norma Zhang APRN EQUIPMENT TESTER Unavailable Gale Braxton APRN CNM Unavailable Irineo Lebron PhD Unavailable [phone] Linn Macias APRN CNM Unavailable [phone] Gale Braxton APRN CNM Unavailable Encounter Details Date Type Department Care Team (Late st Contact Info) Description 06/26/2022 [facility] [place] [facility] [place] [address] [address] [address] [place] [address] Norma Zhang APRN EQUIPMENT TESTER [address] [facility] [place] [address] Social History Tobacco Use Types Packs/Day Years Used Date Smoking Tobacco: Never Smokeless Tobacco: Never Alcohol Use Standard Drinks/Week Comments Not Currently 0 (1 standard drink = 0.6 oz pure alcohol) socially, couple times per month PHQ-2 Answer Date Recorded PHQ-2 Score 0 06/17/2022 [place] Depression Scale Answer Date Recorded [place] Depression Score 3 10/31/2021 Last EPDS Self Harm Result Not on file 10/31 Sex and Gender Information Value Date Recorded Sex Assigned at Female 06/06/2018 9:16 PM ELEVATOR PILOT Gender Identity Female 06/06/2018 9:16 PM ELEVATOR PILOT Sexual Orientation Straight 06/06/2018 9: 16 PM ELEVATOR PILOT documented as of this encounter Plan of Treatment Upcoming Encounters Date Type Department Care Team (Late st Contact Info) Description 11/30/2024 7:00 AM CDT Office Visit [facility] [place] [address] [place] [address] Drive [address] [place] [address] Norma Zhang APRN EQUIPMENT TESTER [address] [place] [address] [place] [address] documented as of this encounter Visit Diagnoses Not on filedocumented in this encounter Additional Health Concerns Assessment Noted Time PHQ-9 Depression Total Score: 2 06/28/19 16 7:53 AM ELEVATOR PILOT documented as of this encounter Care Teams Glove Finisher Relationship Specialty Start Date End Date Norma Zhang APRN EQUIPMENT TESTER [address] [place] [address] [place] [address] PCP - General Nurse Practitioner 11/30/18 Perry Milan MD [facility] [address] [place] [address] Assigned Pulmonology Provider 03/24/20 07/12/22 Jael Hess CNM [address] [place] [address] Assigned OBGYN Provider 11/10/21 2/2 3 Norma Zhang APRN EQUIPMENT TESTER [address] [place] [address] [place] [address] Assigned PCP 06/22/22 Gale Braxton APRN CNM [address] [place] [address] Assigned OBGYN Provider 07/06/22 Irineo Lebron, PhD [address] [place] [address] Assigned Behavioral Health Provider 11/23/22 Linn Macias APRN CNM [address] [place] [address] Assigned OBGYN Provider 02/15/2303/28 Gale Braxton APRN CNRahel [address] [place] [address] Assigned OBGYN Provider 03/29/23 documented as of this encounter
--- OUTSIDE RECORDS SUMMARY | 2024-03-13 22:07 | XMS_ITS | Encounter Summary ---
Author Organization [facility] Address [address] [place] [address]. [place] [address] Care Team Providers Care Right Of Way Manager Name Role Phone Norma Zhang APRN, CNP Primary Car e Provider Norma Zhang APRN CORPORATE AUDITOR Unavailable Gale Braxton APRN CNM Unavailable Irineo Lebron PhD Unavailable [phone] Linn Macias APRN CNM Unavailable [phone] Gale Braxton APRN CNM Unavailable [phone] Encounter Details Date Type Department Care Team (Late st Contact Info) Description 09/30/[address] [facility] [address] [place] [address] Norma Zhang APRN CNP [address] [facility] [place] [id number] Social History Tobacco Use Types Packs/Day Years Used Date Smoking Tobacco: Never Smokeless Tobacco: Never Alcohol Use Standard Drinks/Week Comments Not Currently 0 (1 standard drink = 0.6 oz pure alcohol) socially, couple times per month PHQ-2 Answer Date Recorded PHQ-2 Score 0 09/30/2022 [place] Depression Scale Answer Date Recorded [place] Depression Score 3 10/31/2021 Last EPDS Self Harm Result Not on file 10/31 Sex and Gender Information Value Date Recorded Sex Assigned at Female 06/06/2018 9:16 PM PROSPECTING OBSERVER Gender Identity Female 06/06/2018 9:16 PM PROSPECTING OBSERVER Sexual Orientation Straight 06/06/2018 9: 16 PM PROSPECTING OBSERVER documented as of this encounter Plan of Treatment Upcoming Encounters Date Type Department Care Team (Late st Contact Info) Description 11/30/2024 7:00 AM CDT Office Visit [facility] [address] [place] [address] Drive [address] [place] [address] Norma Zhang APRN CORPORATE AUDITOR [address] [place] [address] [place] [address] documented as of this encounter Visit Diagnoses Not on filedocumented in this encounter Additional Health Concerns Assessment Noted Time PHQ-9 Depression Total Score: 1 10/01/19 9:57 AM CDT documented as of this encounter Care Teams Right Of Way Manager Relationship Specialty Start Date End Date Norma Zhang APRN CORPORATE AUDITOR [address] [place] [address] [place] [address] PCP - General Nurse Practitioner 11/30/18 Norma Zhang APRN CORPORATE AUDITOR [address] [place] [address] [place] [address] Assigned PCP 06/22/22 Gale Braxton APRN CNM [address] [place] [address] Assigned OBGYN Provider 07/06/22 Irineo Lebron, PhD [address] [place] [address] Assigned Behavioral Health Provider 11/23/22 Linn Macias APRN CNM [address] [place] [address] [address] [place] [address] Assigned OBGYN Provider 02/15/2303/28 Gale Braxton APRN CNM [address] [place] [address] Assigned OBGYN Provider 03/29/23 documented as of this encounter
--- OUTSIDE RECORDS SUMMARY | 2024-03-13 22:07 | XMS_ITS | Encounter Summary ---
Author Organization [facility] Address [address] [place] [address]. [place] [address] Care Team Providers Care Bulk Pallet Builder Name Role Phone Norma Zhang APRN WIRE DROPPER Primary Car e Provider Norma Zhang APRN WIRE DROPPER Unavailable Irineo Lebron PhD Unavailable [phone] Reason for Visit * Reason Onset Date Comments Refill Request 01/05/2024 Encounter Details Date Type Department Care Team (Late st Contact Info) Description 01/05/2024 [facility] [address] [place] [address] Norma Zhang APRN WIRE DROPPER [address] [facility] [place] [phone] Refill Request Social History Tobacco Use Types [...] re latives? Twice a week 11/24/2023 Attends [employer] Not on file 11/23 Active Member [...] Answer Date Recorded PHQ-2 Score 0 11/25/2023 [facility] - [...] exercise at this level? 40 min 11/24/2023 [place] Depression Scale Answer Date Recorded [place] Depression Score 3 10/31/2021 Last EPDS Self [...] Sex Assigned at Female 06/06/2018 9:16 PM SENIOR IT AUDITOR Gender Identity Female 06/06/2018 9:16 PM SENIOR IT AUDITOR Sexual Orientation Straight 06/06/2018 9: 16 PM SENIOR IT AUDITOR documented as of this encounter Plan of Treatment Upcoming Encounters Date Type Department Care Team (Late st Contact Info) Description 11/30/2024 7:00 AM CDT Office Visit [facility] [address] [place] [address] Drive [address] [place] [address] Norma Zhang APRN WIRE DROPPER [address] [place] [address] [place] [address] documented as of this encounter Visit Diagnoses Diagnosis ADHD (attention deficit hyperactivity disorder), combined type Attention deficit disorder with hyperactivity documented in this encounter Additional Health Concerns Assessment Noted Time PHQ-9 Depression Total Score: 2 04/04/20 23 10:40 AM CDT documented as of this encounter Care Teams Bulk Pallet Builder Relationship Specialty Start Date End Date Norma Zhang APRN WIRE DROPPER [address] [place] [address] [place] [address] PCP - General Nurse Practitioner 11/30/18 Norma Zhang APRN WIRE DROPPER [address] [place] [address] [place] [address] Assigned PCP 06/22/22 Irineo Lebron, PhD [address] [place] [address] Assigned Behavioral Health Provider 11/23/22 documented as of this encounter
--- OUTSIDE RECORDS SUMMARY | 2024-03-13 22:07 | XMS_ITS | Encounter Summary ---
Author Organization [facility] Address [address] [place] [address] Care Team Providers Care Turner In Name Role Phone Norma Zhang APRN WEB COORDINATOR Unavailable Norma Zhang APRN WEB COORDINATOR Primary Car e Provider Perry Milan MD Unavailable [phone] Cristina Giles THORACIC MEDICINE SPECIALIST CNM Unavailab le Jael Hess CNM Unavailable [phone] Shola, Aracelisixto Burleson CNM Unavailable Jael Hess CNM Unavailable [phone] Gale Braxton APRN CNM Unavailable [phone] Amie Teixeira APRN WEB COORDINATOR Unavailable [phone] Norma Zhang APRN WEB COORDINATOR Unavailable Gale Braxton APRN CNM Unavailable Irineo Lebron PhD Unavailable [phone] Linn Macias THORACIC MEDICINE SPECIALIST CNM Unavailable [phone] Gale Braxton APRN CNM Unavailable [phone] Encounter Details Date Type Department Care Team (Late st Contact Info) Description 04/16/2021 MyC Medical Advice [facility] [place] [address] [address] [place] [address] Cristina Giles APRN CNM [address] [employer] [place] [address] [place] [address] Social History Tobacco Use Types Packs/Day Years Used Date Smoking Tobacco: Never Smokeless Tobacco: Never Alcohol Use Standard Drinks/Week Comments Not Currently 0 (1 standard drink = 0.6 oz pure alcohol) socially, couple times per month PHQ-2 Answer Date Recorded PHQ-2 Score 0 01/10/2021 [place] Depression Scale Answer Date Recorded [place] Depression Score 2 03/14/2021 Last EPDS Self Harm Result Not on file 03/14 Comments Yes Sex and Gender Information Value Date Recorded Sex Assigned at Female 06/06/2018 9:16 PM INTERCHANGE AGENT Gender Identity Female 06/06/2018 9:16 PM INTERCHANGE AGENT Sexual Orientation Straight 06/06/2018 9: 16 PM INTERCHANGE AGENT COVID-19 Exposure Response Date Recorded In the last month, have you been in contact with someone who was confirmed or suspected to have Coronavirus / COVID-19? No / Unsure 04/11/2021 8:22 AM INTERCHANGE AGENT documented as of this encounter Plan of Treatment Upcoming Encounters Date Type Department Care Team (Late st Contact Info) Description 11/30/2024 7:00 AM CDT Office Visit [facility] [address] [facility] [address] [place] [address] Norma Zhang APRN [address] [place] [address] documented as of this encounter Visit Diagnoses Not on filedocumented in this encounter Additional Health Concerns Infection Onset Date Last Indicated Resolved Time Influenza 04/27/2022 04/27/2022 05/04/2022 11:4 1 PM INTERCHANGE AGENT Assessment Noted Time PHQ-9 Depression Total Score: 2 06/28/19 16 7:53 AM INTERCHANGE AGENT documented as of this encounter Care Teams Turner In Relationship Specialty Start Date End Date Norma Zhang APRN WEB COORDINATOR [address] [facility] [place] [address] PCP - General Nurse Practitioner 11/30/18 Norma Zhang APRN WEB COORDINATOR [address] [facility] [place] [address] Assigned PCP 10/25/18 05/03/22 Perry Milan MD [facility] [address] [place] [address] Assigned Pulmonology Provider 03/24/20 07/12/22 Cristina Giles APRN CNM [address] [place] [address] [place] [address] Assigned OBGYN Provider 04/08/21 Jael Hess CNM [address] [place] [address] Assigned OBGYN Provider 07/29/21 Araclei Jolley CNM [address] [place] [address] [place] [address] Assigned OBGYN Provider 10/27/2111/02/ 2 Jael Hess CNM [address] [place] [address] Assigned OBGYN Provider 11/10/21 3 Gale Braxton APRN CNM [address] [place] [address] Assigned OBGYN Provider 11/03/21 Amie Teixeira APRN WEB COORDINATOR [address] [place] [address] Assigned PCP 05/04/22 06/21/22 Norma Zhang APRN WEB COORDINATOR [address] [facility] [place] [address] Assigned PCP 06/22/22 Gale Braxton APRN CNM [address] [place] [address] Assigned OBGYN Provider 07/06/22 Irineo Lebron, PhD [address] [place] [address] Assigned Behavioral Health Provider 11/23/22 Linn Macias APRN CNM [facility] [address] [address] Assigned OBGYN Provider 02/15/2303/28 Gale Braxton APRN CNM [address] [place] [address] Assigned OBGYN Provider 03/29/23 documented as of this encounter
--- OUTSIDE RECORDS SUMMARY | 2024-03-13 22:07 | XMS_ITS | Encounter Summary ---
Author Organization [place] Address [address] [place] [address]. [place] [address] Care Team Providers Care Rad Tech Name Role Phone Norma Zhang APRN CLOTH DYER Primary Car e Provider Norma Zhang APRN CLOTH DYER Unavailable Irineo Lebron PhD Unavailable [phone] Encounter Details Date Type Department Care Team (Late st Contact Info) Description 05/06/2023 [facility] [place] [address] [place] [address] Juancarlos Tenorio Social History Tobacco Use Types Packs/Day Years Used Date Smoking Tobacco: Never Smokeless Tobacco: Never Alcohol Use Standard Drinks/Week Comments Not Currently 0 (1 standard drink = 0.6 oz pure alcohol) socially, couple times per month Social Connection and Isolation Panel [NHANES] A nswer Date Recorded In a typical week, how many times do you talk on the phone with family, friends, or neighbors? Three times a week 11/11/2022 How often do you get togethe r with friends or relatives? Twice a week 11/11/2022 How often do you attend chur ch or orthodox services? Never 11/11/2022 Do you belong to any clubs o r organizations such as quaker groups, unions, fraternal or athletic groups, or school groups? No 11/11/2022 Attends Club or Organization Meetings Not on stephanie e 11/11/2022 Are you , , di vorced, , never , or living with a partner? 11/11/2022 AUDIT-C Answer Date Recorded Q1: How often [...] PHQ-2 Answer Date Recorded PHQ-2 Score 0 04/04/2023 [facility] - Occupational Stress Questionnaire Answer Date Recorded Do you feel stress - tense, restless, nervous, or anxious, or unable to sleep at night because your mind is troubled all the time - these days? Only a little 11/11/2022 Exercise Vital Sign Answer Date Recorde d On average, how many days pe r week do you engage in moderate to strenuous exercise (like a brisk walk)? 5 days 11/11/2022 On average, how many minutes do you engage in exercise at this level? 40 min 11/11/2022 [place] Depression Scale Answer Date Recorded [place] Depression Score 3 10/31/2021 Last EPDS Self Harm Result Not on file 10/31 Adolescent Education Answer Date Record ed Getting School Help Needed Not on file 02/25 Food Insecurity Answer Date Recorded Within the past 12 months, d id you worry that your food would run out before you got money to buy more? No 03/12/2023 Within the past 12 months, d id the food you bought just not last and you didn? t have money to get more? No 03/12/2023 Housing Stability Answer Date Recorded Do you have housing? (Housin g is defined as stable permanent housing and does not include staying ouside in a car, in a tent, in an abandoned building, in an overnight half-way, or couch-surfing.) Yes 03/12/2023 Are you worried about losing your housing? No 03/12/2023 Financial Resource Strain Answer Date R ecorded Within the past 12 months, h ave you or your family members you live with been unable to get utilities (heat, electricity) when it was really needed? No 03/12/2023 Transportation Needs Answer Date Record ed Within the past 12 months, h as lack of transportation kept you from medical appointments, getting your medicines, non-medical meetings or appointments, work, or from getting things that you need? No 03/12/2023 Interpersonal Safety Answer Date Record ed Do you feel physically and e motionally safe where you currently live? Yes 03/12/2023 Within the past 12 months, h ave you been hit, slapped, kicked or otherwise physically hurt by someone? No 03/12/2023 Within the past 12 months, h ave you been humiliated or emotionally abused in other ways by your partner or ex-partner? No 03/12/2023 Sex and Gender Information Value Date Recorded Sex Assigned at Female 06/06/2018 9:16 PM RESEARCH PSYCHOLOGIST Gender Identity Female 06/06/2018 9:16 PM RESEARCH PSYCHOLOGIST Sexual Orientation Straight 06/06/2018 9: 16 PM RESEARCH PSYCHOLOGIST documented as of this encounter Plan of Treatment Upcoming Encounters Date Type Department Care Team (Late st Contact Info) Description 11/30/2024 7:00 AM CDT Office Visit [facility] [address] [place] [address] Drive [address] [place] [address] Norma Zhang APRN CNP [address] [place] [address] [place] [address] documented as of this encounter Visit Diagnoses Not on filedocumented in this encounter Additional Health Concerns Assessment Noted Time PHQ-9 Depression Total Score: 2 04/04/20 23 10:40 AM CDT documented as of this encounter Care Teams Rad Tech Relationship Specialty Start Date End Date Norma Zhang APRN CLOTH DYER [address] [place] [address] [place] [address] PCP - General Nurse Practitioner 11/30/18 Norma Zhang APRN CNP [address] [place] [address] [place] [address] Assigned PCP 06/22/22 Irineo Lebron PhD [address] [place] [address] Assigned Behavioral Health Provider 11/23/22 documented as of this encounter
--- OUTSIDE RECORDS SUMMARY | 2024-03-13 22:07 | XMS_ITS | Encounter Summary ---
Author Organization [place] Address [address] [place] [address]. [place] [address] Care Team Providers Care Bow Machine Operator Name Role Phone Norma Zhang APRN SANITATION MANAGER Primary Car e Provider Norma Zhang APRN SANITATION MANAGER Unavailable Gale Braxton APRN CNM Unavailable Irineo Lebron PhD Unavailable [phone] Linn Macias APRN CNM Unavailable [phone] Gale Braxton APRN CNM Unavailable [phone] Encounter Details Date Type Department Care Team (Late st Contact Info) Description 09/02/2022 MyC Medical Advice [address] [place] [phone] Dee Dye, RN Social History Tobacco Use Types Packs/Day Years Used Date Smoking Tobacco: Never Smokeless Tobacco: Never Alcohol Use Standard Drinks/Week Comments Not Currently 0 (1 standard drink = 0.6 oz pure alcohol) socially, couple times per month PHQ-2 Answer Date Recorded PHQ-2 Score 0 06/17/2022 [place] Depression Scale Answer Date Recorded [place] Depression Score 3 10/31/2021 Last EPDS Self Harm Result Not on file 10/31 Sex and Gender Information Value Date Recorded Sex Assigned at Female 06/06/2018 9:16 PM CLAIM EXAMINER Gender Identity Female 06/06/2018 9:16 PM CLAIM EXAMINER Sexual Orientation Straight 06/06/2018 9: 16 PM CLAIM EXAMINER documented as of this encounter Plan of Treatment Upcoming Encounters Date Type Department Care Team (Late st Contact Info) Description 11/30/2024 7:00 AM CDT Office Visit [facility] [address] [place] [address] Norma Zhang APRN SANITATION MANAGER [facility] [place] [address] documented as of this encounter Visit Diagnoses Not on filedocumented in this encounter Additional Health Concerns Assessment Noted Time PHQ-9 Depression Total Score: 2 06/28/19 16 7:53 AM CLAIM EXAMINER documented as of this encounter Care Teams Bow Machine Operator Relationship Specialty Start Date End Date Norma Zhang APRN SANITATION MANAGER [address] [place] [address] [place] [address] PCP - General Nurse Practitioner 11/30/18 Norma Zhang APRN SANITATION MANAGER [address] [place] [address] [place] [address] Assigned PCP 06/22/22 Gale Braxton APRN CNM [address] [place] [address] Assigned OBGYN Provider 07/06/22 Irineo Lebron, PhD [address] [place] [address] Assigned Behavioral Health Provider 11/23/22 Linn Macias APRN CNM [address] [place] [address] Assigned OBGYN Provider 02/15/2303/28 Gale Braxton APRN [facility] [address] [place] [address] Assigned OBGYN Provider 03/29/23 documented as of this encounter
--- OUTSIDE RECORDS SUMMARY | 2024-03-13 22:07 | XMS_ITS | Encounter Summary ---
Author Organization [place] Address [address] [place] [address] Care Team Providers Care Food Adviser Name Role Phone Norma Zhang APRN STEAM FLATTENER Unavailable Norma Zhang APRN STEAM FLATTENER Primary Car e Provider Perry Milan MD Unavailable [phone] Cristina Giles BOOT TURNER CNM Unavailab le Jael Hess CNM Unavailable [phone] Shola, Aracelisixto Burleson CNM Unavailable Jael Hess CNM Unavailable [phone] Gale Braxton APRN CNM Unavailable [phone] Amie Teixeira APRN STEAM FLATTENER Unavailable [phone] Norma Zhang APRN STEAM FLATTENER Unavailable Gale Braxton APRN CNM Unavailable Irineo Lebron PhD Unavailable [phone] Linn Macias BOOT TURNER CNM Unavailable [phone] Gale Braxton APRN CNM Unavailable [phone] Encounter Details Date Type Department Care Team (Late st Contact Info) Description 05/03/2021 MyC Medical Advice [facility] [place] [address] [place] [phone] Missy Rachel Social History Tobacco Use Types Packs/Day Years Used Date Smoking Tobacco: Never Smokeless Tobacco: Never Alcohol Use Standard Drinks/Week Comments Not Currently 0 (1 standard drink = 0.6 oz pure alcohol) socially, couple times per month PHQ-2 Answer Date Recorded PHQ-2 Score 0 01/10/2021 [place] Depression Scale Answer Date Recorded [place] Depression Score 2 03/14/2021 Last EPDS Self Harm Result Not on file 03/14 Comments Yes Sex and Gender Information Value Date Recorded Sex Assigned at Female 06/06/2018 9:16 PM PRINTING ENGINEER Gender Identity Female 06/06/2018 9:16 PM PRINTING ENGINEER Sexual Orientation Straight 06/06/2018 9: 16 PM PRINTING ENGINEER COVID-19 Exposure Response Date Recorded In the last month, have you been in contact with someone who was confirmed or suspected to have Coronavirus / COVID-19? No / Unsure 05/02/2021 7:47 AM PRINTING ENGINEER documented as of this encounter Plan of Treatment Upcoming Encounters Date Type Department Care Team (Late st Contact Info) Description 11/30/2024 7:00 AM CDT Office Visit [facility] [address] [place] [address] Drive [address] [place] [address] Norma Zhang APRN STEAM FLATTENER [address] [place] [address] [place] [address] documented as of this encounter Visit Diagnoses Not on filedocumented in this encounter Additional Health Concerns Infection Onset Date Last Indicated Resolved Time Influenza 04/27/2022 04/27/2022 05/04/2022 11:4 1 PM PRINTING ENGINEER Assessment Noted Time PHQ-9 Depression Total Score: 2 06/28/19 16 7:53 AM PRINTING ENGINEER documented as of this encounter Care Teams Food Adviser Relationship Specialty Start Date End Date Norma Zhang APRN STEAM FLATTENER [address] [place] [address] [place] [address] PCP - General Nurse Practitioner 11/30/18 Norma Zhang, BOOT TURNER STEAM FLATTENER [address] [facility] [place] [address] Assigned PCP 10/25/18 05/03/22 Perry Milan MD [facility] [address] [place] [address] Assigned Pulmonology Provider 03/24/20 07/12/22 Cristina Giles APRN CNM [address] [place] [address] Assigned OBGYN Provider 04/08/21 Jael Hess CNM [address] [place] [address] Assigned OBGYN Provider 07/29/21 Araceli Jolley CNM [address] [place] [address] Assigned OBGYN Provider 10/27/21 2 Jael Hess CNM [address] [place] [address] Assigned OBGYN Provider 11/10/21 3 Gale Braxton APRN CNM [address] [place] [address] Assigned OBGYN Provider 11/03/21 CapronAmie cordova APRN STEAM FLATTENER [address] [place] [address] Assigned PCP 05/04/22 06/21/22 Norma Zhang APRN STEAM FLATTENER [address] [facility] [place] [address] Assigned PCP 06/22/22 Gale Braxton APRN CNM [address] [place] [address] Assigned OBGYN Provider 07/06/22 Irineo Lebron, PhD [address] [place] [address] Assigned Behavioral Health Provider 11/23/22 Linn Macias APRN CNM [facility] [address] Assigned OBGYN Provider 02/15/2303/28 Gale Braxton APRN CNM [address] [place] [address] Assigned OBGYN Provider 03/29/23 documented as of this encounter
--- OUTSIDE RECORDS SUMMARY | 2024-03-13 22:07 | XMS_ITS | Encounter Summary ---
Author Organization [place] Address [address] [place] [address]. [place] [address] Care Team Providers Care Recorder Helper Gravity Prospecting Name Role Phone Norma Zhang APRN, CNP Unavailable Norma Zhang APRN SMUTTER Primary Car e Provider Ward Jennings MD Unavailable Perry Milan MD Unavailable [phone] Cristina Giles ADMINISTRATIVE SUPPORT COORDINATOR CNM Unavailab le Jael Hess CNM Unavailable [phone] Araceli Jolley CNM Unavailable Jael Hess CNM Unavailable [phone] Gale Braxton APRN CNM Unavailable Amie Teixeira APRN SMUTTER Unavailable [phone] Norma Zhang APRN SMUTTER Unavailable Gale Braxton APRN CNM Unavailable Irineo Lebron PhD Unavailable [phone] Linn Macisa APRN CNM Unavailable [phone] Gale Braxton APRN CNM Unavailable Encounter Details Date Type Department Care Team (Late st Contact Info) Description 04/02/2021 Documentation Only INTERFACED REPORT Unknown, Provider Social History Tobacco Use Types Packs/Day Years Used Date Smoking Tobacco: Never Smokeless Tobacco: Never Alcohol Use Standard Drinks/Week Comments Not Currently 0 (1 standard drink = 0.6 oz pure alcohol) socially, couple times per month PHQ-2 Answer Date Recorded PHQ-2 Score 0 01/10/2021 [place] Depression Scale Answer Date Recorded [place] Depression Score 2 03/14/2021 Last EPDS Self Harm Result Not on file 03/14 Comments Yes Sex and Gender Information Value Date Recorded Sex Assigned at Female 06/06/2018 9:16 PM DOOR LINER Gender Identity Female 06/06/2018 9:16 PM DOOR LINER Sexual Orientation Straight 06/06/2018 9: 16 PM DOOR LINER COVID-19 Exposure Response Date Recorded In the last month, have you been in contact with someone who was confirmed or suspected to have Coronavirus / COVID-19? No / Unsure 04/04/2021 1:43 PM CDT documented as of this encounter Plan of Treatment Upcoming Encounters Date Type Department Care Team (Late st Contact Info) Description 11/30/2024 7:00 AM CDT Office Visit [address] [place] [address] Norma Zhang APRN SMUTTER [address] [place] [address] [place] [address] documented as of this encounter Visit Diagnoses Not on filedocumented in this encounter Additional Health Concerns Infection Onset Date Last Indicated Resolved Time Influenza 04/27/2022 04/27/2022 05/04/2022 11:4 1 PM DOOR LINER Assessment Noted Time PHQ-9 Depression Total Score: 2 06/28/19 16 7:53 AM DOOR LINER documented as of this encounter Care Teams Recorder Helper Gravity Prospecting Relationship Specialty Start Date End Date Norma Zhang APRN SMUTTER [address] [place] [address] [place] [address] PCP - General Nurse Practitioner 11/30/18 Norma Zhang APRN SMUTTER [address] [facility] [place] [address] Assigned PCP 10/25/18 05/03/22 Ward Jennings MD [address] [place] [address] Assigned OBGYN Provider 03/24/20 Perry Milan MD [facility] [address] [place] [address] Assigned Pulmonology Provider 03/24/20 07/12/22 Cristina Giles APRN CNM [address] [place] [address] Assigned OBGYN Provider 04/08/21 Jael Hess CNM [address] [place] [address] Assigned OBGYN Provider 07/29/21 Araceli Jolley CNM [address] [place] [address] Assigned OBGYN Provider 10/27/21 2 Jael Hess CNM [address] [place] [address] Assigned OBGYN Provider 11/10/21 3 Gale Braxton APRN CNM [address] [place] [address] Assigned OBGYN Provider 11/03/21 Amie Teixeira APRN SMUTTER [address] [place] [address] Assigned PCP 05/04/22 06/21/22 Norma Zhang APRN SMUTTER [address] [facility] [place] [address] Assigned PCP 06/22/22 Gale Braxton APRN CNM [address] [place] [address] Assigned OBGYN Provider 07/06/22 Irineo Lebron, PhD [address] [place] [address] Assigned Behavioral Health Provider 11/23/22 Linn Macias APRN CNM [facility] [address] Assigned OBGYN Provider 02/15/2303/28 Gale Braxton APRN CNM [address] [place] [address] Assigned OBGYN Provider 03/29/23 documented as of this encounter
--- OUTSIDE RECORDS SUMMARY | 2024-03-13 22:07 | XMS_ITS | Encounter Summary ---
Author Organization [place] Address [address] [place] [address]. [place] [address] Care Team Providers Care Food Beverage Supervisor Name Role Phone Norma Zhang APRN PURCHASING BUYER Primary Car e Provider Norma Zhang APRN PURCHASING BUYER Unavailable Gale Braxton APRN CNM Unavailable Irineo Lebron PhD Unavailable [phone] Linn Macias APRN CNM Unavailable [phone] Gale Braxton APRN CNM Unavailable [phone] Reason for Visit * Reason Comments Medication Refill Encounter Details Date Type Department Care Team (Late st Contact Info) Description 10/04/2022 Refill [facility] [address] [facility] [address] [place] [address] Cheko Jones MD [address] [facility] [place] [address] Medication Refill Social History Tobacco Use Types Packs/Day Years Used Date Smoking Tobacco: Never Smokeless Tobacco: Never Alcohol Use Standard Drinks/Week Comments Not Currently 0 (1 standard drink = 0.6 oz pure alcohol) socially, couple times per month PHQ-2 Answer Date Recorded PHQ-2 Score 0 09/30/2022 [place] Depression Scale Answer Date Recorded [place] Depression Score 3 10/31/2021 Last EPDS Self Harm Result Not on file 10/31 Sex and Gender Information Value Date Recorded Sex Assigned at Female 06/06/2018 9:16 PM RAW HIDE TRIMMER Gender Identity Female 06/06/2018 9:16 PM RAW HIDE TRIMMER Sexual Orientation Straight 06/06/2018 9: 16 PM RAW HIDE TRIMMER documented as of this encounter Miscellaneous Notes * Telephone Encounter - Cooper Gan RN - 10/04/2022 2:10 PM CDT Prescription approved per [facility] Refill Protocol. documented in this encounter Plan of Treatment Upcoming Encounters Date Type Department Care Team (Late st Contact Info) Description 11/30/2024 7:00 AM CDT Office Visit [facility] [address] [place] [address] Drive [address] [place] [address] Norma Zhang APRN PURCHASING BUYER [address] [place] [address] [place] [address] documented as of this encounter Visit Diagnoses Diagnosis Anxiety Anxiety state, unspecified Inattention Other specified conditions influencing health status Heavy alcohol use Alcohol abuse, unspecified documented in this encounter Additional Health Concerns Assessment Noted Time PHQ-9 Depression Total Score: 1 10/01/19 23 9:57 AM CDT documented as of this encounter Care Teams Food Beverage Supervisor Relationship Specialty Start Date End Date Norma Zhang APRN PURCHASING BUYER [address] [place] [address] [place] [address] PCP - General Nurse Practitioner 11/30/18 Norma Zhang APRN PURCHASING BUYER [address] [place] [address] [place] [address] Assigned PCP 06/22/22 Gale Braxton APRN CNM [address] [place] [address] Assigned OBGYN Provider 07/06/22 Irineo Lebron, PhD [address] [place] [address] Assigned Behavioral Health Provider 11/23/22 Linn Macias APRN CNM [facility] [address] [address] Assigned OBGYN Provider 02/15/2303/28 Gale Braxton APRN [facility] [address] [place] [address] Assigned OBGYN Provider 03/29/23 documented as of this encounter
--- OUTSIDE RECORDS SUMMARY | 2024-03-13 22:07 | XMS_ITS | Encounter Summary ---
Author Organization [place] Address [address] [place] [address]. [place] [address] Care Team Providers Care Business Analytics Specialist Name Role Phone Norma Zhang APRN CHIEF CLOTH FINISHING RANGE OPERATOR Primary Car e Provider Norma Zhang APRN CHIEF CLOTH FINISHING RANGE OPERATOR Unavailable Gale Braxton APRN CNM Unavailable [phone] Irineo Lebron PhD Unavailable [phone] Linn Macias APRN CNM Unavailable [phone] Gale Braxton APRN CNM Unavailable [phone] Encounter Details Date Type Department Care Team (Late st Contact Info) Description 12/23/2022 [facility] [address] [facility] [address] [place] [address] Irineo Lebron, PhD [address] [place] [address] Social History Tobacco Use Types Packs/Day Years [...] 11/11/2022 How often do you attend chur or roman catholic services? Never 11/11/2022 Do you belong to any clubs o r organizations such as buddhism groups, unions, fraternal or athletic groups, or [...] on one occasion? Less than monthly 11/11/2022 Overall Financial Resource Strain (CARDIA) Answe r Date Recorded How hard is it for you to pa y for the very basics like food, housing, medical care, and heating? Not hard at all 11/11/2022 PHQ-2 Answer Date Recorded PHQ-2 Score 0 12/17/2022 [facility] - [...] exercise at this level? 40 min 11/11/2022 Hunger Vital Sign Answer Date Recorded Within the past 12 months, y ou worried that your food would run out before you got the money to buy more. Never true 11/12/19 23 Within the past 12 months, t he food you bought just didn't last and you didn't have money to get more. Never true 11/11/2022 PRAPARE - Transportation Answer Date Re corded In the past 12 months, has l ack of transportation kept you from medical appointments or from getting medications? Yes 10/31 In the past 12 months, has l ack of transportation kept you from meetings, work, or from getting things needed for daily living? Yes 11/11/2022 Housing Stability Vital Sign Answer Santos e Recorded In the last 12 months, was t here a time when you were not able to pay the mortgage or rent on time? No 11/11/2022 In the last 12 months, how many places have you lived? 1 11/11/2022 In the last 12 months, was t here a time when you did not have a steady place to sleep or slept in a correction (including now)? No 11/11/2022 [place] Depression Scale Answer Date Recorded [place] Depression Score 3 10/31/2021 Last EPDS Self Harm Result Not on file 10/31 Sex and Gender Information Value Date Recorded Sex Assigned at Female 06/06/2018 9:16 PM AUTOMOBILE ASSEMBLY SUPERVISOR Gender Identity Female 06/06/2018 9:16 PM AUTOMOBILE ASSEMBLY SUPERVISOR Sexual Orientation Straight 06/06/2018 9: 16 PM AUTOMOBILE ASSEMBLY SUPERVISOR documented as of this encounter Plan of Treatment Upcoming Encounters Date Type Department Care Team (Late st Contact Info) Description 11/30/2024 7:00 AM CDT Office Visit [facility] [address] [place] [address] Drive [address] [place] [address] Norma Zhang APRN CNP [address] [place] [address] [place] [address] documented as of this encounter Visit Diagnoses Not on filedocumented in this encounter Additional Health Concerns Assessment Noted Time PHQ-9 Depression Total Score: 3 12/18/19 23 1:45 PM CDT documented as of this encounter Care Teams Business Analytics Specialist Relationship Specialty Start Date End Date Norma Zhang APRN CHIEF CLOTH FINISHING RANGE OPERATOR [address] [place] [address] [place] [address] PCP - General Nurse Practitioner 11/30/18 Norma Zhang APRN CHIEF CLOTH FINISHING RANGE OPERATOR [address] [place] [address] [place] [address] Assigned PCP 06/22/22 Gale Braxton APRN CNM [address] [place] [address] Assigned OBGYN Provider 07/06/22 Irineo Lebron, PhD [address] [place] [address] Assigned Behavioral Health Provider 11/23/22 iLnn Macias APRN CNM [address] [place] [address] Assigned OBGYN Provider 02/15/2303/28 Gale Braxton APRN [facility] [address] [place] [address] Assigned OBGYN Provider 03/29/23 documented as of this encounter
--- OUTSIDE RECORDS SUMMARY | 2024-03-13 22:07 | XMS_ITS | Encounter Summary ---
Author Organization [place] Address [address] [place] [address]. [place] [address] Care Team Providers Care Masseur/Masseuse Name Role Phone Norma Zhang APRN RAIL EXPRESS CLERK Unavailable Norma Zhang APRN RAIL EXPRESS CLERK Primary Car e Provider Perry Milan MD Unavailable [phone] Jael Hess CNM Unavailable [phone] Amie Teixeira APRN RAIL EXPRESS CLERK Unavailable [phone] Norma Zhang APRN RAIL EXPRESS CLERK Unavailable Gale Braxton APRN CNM Unavailable Irineo Lebron PhD Unavailable [phone] Linn Macias APRN CNM Unavailable [phone] Gale Braxton APRN CNM Unavailable Encounter Details Date Type Department Care Team (Late st Contact Info) Description 04/19/2022 MyC Medical Advice [facility] [address] [place] [phone] Amie Teixeira APRN RAIL EXPRESS CLERK [address] [place], [place] [address] Social History Tobacco Use Types Packs/Day Years Used Date Smoking Tobacco: Never Smokeless Tobacco: Never Alcohol Use Standard Drinks/Week Comments Not Currently 0 (1 standard drink = 0.6 oz pure alcohol) socially, couple times per month PHQ-2 Answer Date Recorded PHQ-2 Score 0 04/18/2022 [place] Depression Scale Answer Date Recorded [place] Depression Score 3 10/31/2021 Last EPDS Self Harm Result Not on file 10/31 Sex and Gender Information Value Date Recorded Sex Assigned at Female 06/06/2018 9:16 PM ACQUISITION CONSULTANT Gender Identity Female 06/06/2018 9:16 PM ACQUISITION CONSULTANT Sexual Orientation Straight 06/06/2018 9: 16 PM ACQUISITION CONSULTANT documented as of this encounter Miscellaneous Notes * Telephone Encounter - Sarah Beth Reynolds - 04/22/2022 3:07 PM CST Faxed to [facility] [phone] Sarah Beth Reynolds on 04/22/2022 at 3:08 PM ISITION CONSULTANT * Telephone Encounter - Gena Ruiz - 04/22/2022 11:19 AM ACQUISITION CONSULTANT Form printed and put in Javi Teixeira's inbox ISITION CONSULTANT * Telephone Encounter - Noble Coelho RN - 04/19/2022 3:25 PM CST [employer] message requesting a return to work letter for Friday. Routed to Provider Puneet. Noble HADLEY [facility] ISITION CONSULTANT documented in this encounter Plan of Treatment Upcoming Encounters Date Type Department Care Team (Late st Contact Info) Description 11/30/2024 7:00 AM CDT Office Visit [facility] [address] [facility] [address] [place] [address] Pauline-Norma Bean APRN [facility] [address] [place] [address] [place] [address] documented as of this encounter Visit Diagnoses Not on filedocumented in this encounter Additional Health Concerns Infection Onset Date Last Indicated Resolved Time Influenza 04/27/2022 04/27/2022 05/04/2022 11:4 1 PM ACQUISITION CONSULTANT Assessment Noted Time PHQ-9 Depression Total Score: 2 06/28/19 16 7:53 AM ACQUISITION CONSULTANT documented as of this encounter Care Teams Masseur/Masseuse Relationship Specialty Start Date End Date Norma Zhang APRN RAIL EXPRESS CLERK [address] [place] [address] [place] [address] PCP - General Nurse Practitioner 11/30/18 Norma Zhang APRN RAIL EXPRESS CLERK [address] [place] [address] [place] [address] Assigned PCP 10/25/18 05/03/22 Perry Milan MD [facility] [address] [place] [address] Assigned Pulmonology Provider 03/24/20 07/12/22 Jael Hess CNM [address] [place] [address] Assigned OBGYN Provider 11/10/21 3 Amie Teixeira APRN RAIL EXPRESS CLERK [address] [place] [address] Assigned PCP 05/04/22 06/21/22 Norma Zhang APRN RAIL EXPRESS CLERK [address] [place] [address] [place] [address] Assigned PCP 06/22/22 Gale Braxton APRN CNM [address] [place] [address] Assigned OBGYN Provider 07/06/22 Irineo Lebron, PhD [address] [place] [address] Assigned Behavioral Health Provider 11/23/22 Linn Macias APRN CNM [address] [place] [address] Assigned OBGYN Provider 02/15/2303/28 Gale Braxton APRN CNM [address] [place] [address] Assigned OBGYN Provider 03/29/23 documented as of this encounter
--- OUTSIDE RECORDS SUMMARY | 2024-03-13 22:07 | XMS_ITS | Encounter Summary ---
Author Organization [facility] Address [address] [place] [address]. [place] [address] Care Team Providers Care Final Touch Up Painter Name Role Phone Norma Zhang APRN ENERGY CONSERVATION REPRESENTATIVE Primary Car e Provider Norma Zhang APRN ENERGY CONSERVATION REPRESENTATIVE Unavailable Iirneo Lebron PhD Unavailable [phone] Reason for Visit * Reason Onset Date Comments Letter for School/Work 05/30/2023 Encounter Details Date Type Department Care Team (Late st Contact Info) Description 05/30/2023 [facility] [address] [place] [address] Norma Zhang APRN ENERGY CONSERVATION REPRESENTATIVE [address] [facility] [place] [id number] Letter for School/Work Social History Tobacco Use Types Packs/Day Years [...] week 11/11/2022 How often do you attend [facility] or mu-ism services? Never 11/11/2022 Do you belong to any clubs o r organizations such as baptism groups, unions, fraternal or athletic groups, or [...] Answer Date Recorded PHQ-2 Score 0 04/04/2023 [facility] - Occupational [...] exercise at this level? 40 min 11/11/2022 [place] Depression Scale Answer Date Recorded [place] Depression Score 3 10/31/2021 Last EPDS Self [...] in an overnight chcf, or couch-surfing.) Yes 03/12/2023 Are you worried [...] Sex Assigned at Female 06/06/2018 9:16 PM HOOP EXPANDER Gender Identity Female 06/06/2018 9:16 PM HOOP EXPANDER Sexual Orientation Straight 06/06/2018 9: 16 PM HOOP EXPANDER documented as of this encounter Miscellaneous Notes * Telephone Encounter - Peace Barboza RN - 06/03/2023 2:14 PM HOOP EXPANDER Pended letter in the communications tab. EXPANDER * Telephone Encounter - Norma Zhang APRN CNP - 06/03/2023 8:03 AM CST Please taylor up and I'll sign EXPANDER * Telephone Encounter - Johan Negro RN - 06/03/2023 7:59 AM CST Patient sending MyChart requesting letter for work. Please advise if e-visit needed. Johan Dobbins RN 06/03/2023 at 7:59 AM EXPANDER documented in this encounter Plan of Treatment Upcoming Encounters Date Type Department Care Team (Late st Contact Info) Description 11/30/2024 7:00 AM CDT Office Visit [facility] [place] [address] [place] [address] Norma Zhang APRN ENERGY CONSERVATION REPRESENTATIVE [address] [place] [address] [place] [address] documented as of this encounter Visit Diagnoses Not on filedocumented in this encounter Additional Health Concerns Assessment Noted Time PHQ-9 Depression Total Score: 2 04/04/20 23 10:40 AM CDT documented as of this encounter Care Teams Final Touch Up Painter Relationship Specialty Start Date End Date Norma Zhang APRN ENERGY CONSERVATION REPRESENTATIVE [address] [place] [address] [place] [address] PCP - General Nurse Practitioner 11/30/18 Norma Zhang APRN ENERGY CONSERVATION REPRESENTATIVE [address] [place] [address] [place] [address] Assigned PCP 06/22/22 Irineo Lebron, PhD [address] [place] [address] Assigned Behavioral Health Provider 11/23/22 documented as of this encounter
--- OUTSIDE RECORDS SUMMARY | 2024-03-13 22:07 | XMS_ITS | Encounter Summary ---
Author Organization [facility] Address [address] [place] [address]. [place] [address] Care Team Providers Care Polisher And Buffer Name Role Phone Norma Zhang APRN POURER OFF Unavailable Norma Zhang APRN POURER OFF Primary Car e Provider Perry Milan MD Unavailable [phone] Jael Hess CNM Unavailable [phone] Araceli Jolley Sarah Beth CNM Unavailable Jael Hess CNM Unavailable [phone] Gale Braxton APRN CNM Unavailable Amie Teixeira APRN POURER OFF Unavailable Norma Zhang APRN POURER OFF Unavailable Gale Braxton APRN CNM Unavailable Irineo Lebron PhD Unavailable [phone] Linn Macias LINKING MACHINE OPERATOR CNM Unavailable [phone] Gale Braxton APRN CNM Unavailable Encounter Details Date Type Department Care Team (Late st Contact Info) Description 09/24/2021 MyC Medical Advice [facility] [address] [facility] [address] [place] [address] Courtney Reyes RN Social History Tobacco Use Types Packs/Day Years Used Date Smoking Tobacco: Never Smokeless Tobacco: Never Alcohol Use Standard Drinks/Week Comments Not Currently 0 (1 standard drink = 0.6 oz pure alcohol) socially, couple times per month PHQ-2 Answer Date Recorded PHQ-2 Score 0 01/10/2021 [place] Depression Scale Answer Date Recorded [place] Depression Score 3 07/11/2021 Last EPDS Self Harm Result Not on file 07/11 Sex and Gender Information Value Date Recorded Sex Assigned at Female 06/06/2018 9:16 PM CHIEF BANK EXAMINER Gender Identity Female 06/06/2018 9:16 PM CHIEF BANK EXAMINER Sexual Orientation Straight 06/06/2018 9: 16 PM CHIEF BANK EXAMINER COVID-19 Exposure Response Date Recorded In the last 10 days, have yo u been in contact with someone who was confirmed or suspected to have Coronavirus/COVID-19? No / Unsure 09/26/2021 10:12 AM CDT documented as of this encounter Plan of Treatment Upcoming Encounters Date Type Department Care Team (Late st Contact Info) Description 11/30/2024 7:00 AM CDT Office Visit [facility] [place] [address] [place] [address] Drive [address] [place] [phone] Norma Zhang APRN POURER OFF [address] [place] [address] [place] [address] documented as of this encounter Visit Diagnoses Not on filedocumented in this encounter Additional Health Concerns Infection Onset Date Last Indicated Resolved Time Influenza 04/27/2022 04/27/2022 05/04/2022 11:4 1 PM CHIEF BANK EXAMINER Assessment Noted Time PHQ-9 Depression Total Score: 2 06/28/19 16 7:53 AM CHIEF BANK EXAMINER documented as of this encounter Care Teams Polisher And Buffer Relationship Specialty Start Date End Date Norma Zhang APRN POURER OFF [address] [place] [address] [place] [address] PCP - General Nurse Practitioner 11/30/18 Norma Zhang APRN POURER OFF [address] [facility] [place] [address] Assigned PCP 10/25/18 05/03/22 Perry Milan MD [facility] [address] [place] [address] Assigned Pulmonology Provider 03/24/20 07/12/22 Jael Hess CNM [address] [place] [address] Assigned OBGYN Provider 07/29/21 Araceli Jolley CNM [address] [address] Assigned OBGYN Provider 10/27/21 2 Jael Hess CNM [address] [place] [address] Assigned OBGYN Provider 11/10/21 3 Gale Braxton APRN CNM [address] [place] [address] Assigned OBGYN Provider 11/03/21 Amie Teixeira APRN POURER OFF [address] [place] [address] Assigned PCP 05/04/22 06/21/22 Norma Zhang APRN POURER OFF [address] [facility] [place] [address] Assigned PCP 06/22/22 Gale Braxton APRN CNM [address] [place] [address] Assigned OBGYN Provider 07/06/22 Irineo Lebron, PhD [address] [place] [address] Assigned Behavioral Health Provider 11/23/22 Linn Macias APRN CNM [address] [place] [address] Assigned OBGYN Provider 02/15/2303/28 Gale Braxton APRN [place] [address] [place] [address] Assigned OBGYN Provider 03/29/23 documented as of this encounter
--- OUTSIDE RECORDS SUMMARY | 2024-03-13 22:07 | XMS_ITS | Encounter Summary ---
Author Organization [facility] Address [address] [place] [address]. [place] [address] Care Team Providers Care Traffic Manager Name Role Phone Norma Zhang APRN FLIGHT LINE SERVICE ATTENDANT Unavailable Norma Zhang APRN FLIGHT LINE SERVICE ATTENDANT Primary Car e Provider Perry Milan MD Unavailable [phone] Jael Hess CNM Unavailable [phone] Gale Braxton APRN CNM Unavailable Amie Teixeira APRN FLIGHT LINE SERVICE ATTENDANT Unavailable [phone] Norma Zhang APRN FLIGHT LINE SERVICE ATTENDANT Unavailable Gale Braxton APRN CNM Unavailable Irineo Lebron PhD Unavailable [phone] Linn Macias APRN CNM Unavailable [phone] Gale Braxton APRN CNM Unavailable Encounter Details Date Type Department Care Team (Late st Contact Info) Description 11/08/2021 [facility] [address] [id number] [place] [address] Mandie Lopez [facility] [address] [place] [address] Social History Tobacco Use Types Packs/Day Years Used Date Smoking Tobacco: Never Smokeless Tobacco: Never Alcohol Use Standard Drinks/Week Comments Not Currently 0 (1 standard drink = 0.6 oz pure alcohol) socially, couple times per month PHQ-2 Answer Date Recorded PHQ-2 Score 0 01/10/2021 [place] Depression Scale Answer Date Recorded [place] Depression Score 3 10/31/2021 Last EPDS Self Harm Result Not on file 10/31 Sex and Gender Information Value Date Recorded Sex Assigned at Female 06/06/2018 9:16 PM SPECIAL EDUCATION SECRETARY Gender Identity Female 06/06/2018 9:16 PM SPECIAL EDUCATION SECRETARY Sexual Orientation Straight 06/06/2018 9: 16 PM SPECIAL EDUCATION SECRETARY COVID-19 Exposure Response Date Recorded In the last 10 days, have yo u been in contact with someone who was confirmed or suspected to have Coronavirus/COVID-19? No / Unsure 10/31/2021 10:21 AM CDT documented as of this encounter Plan of Treatment Upcoming Encounters Date Type Department Care Team (Late st Contact Info) Description 11/30/2024 7:00 AM CDT Office Visit [facility] [place] [address] [place] [address] Drive [address] [place] [phone] Norma Zhang APRN FLIGHT LINE SERVICE ATTENDANT [address] [place] [address] [place] [address] documented as of this encounter Visit Diagnoses Not on filedocumented in this encounter Additional Health Concerns Infection Onset Date Last Indicated Resolved Time Influenza 04/27/2022 04/27/2022 05/04/2022 11:4 1 PM SPECIAL EDUCATION SECRETARY Assessment Noted Time PHQ-9 Depression Total Score: 2 06/28/19 16 7:53 AM SPECIAL EDUCATION SECRETARY documented as of this encounter Care Teams Traffic Manager Relationship Specialty Start Date End Date Norma Zhang APRN FLIGHT LINE SERVICE ATTENDANT [address] [place] [address] [place] [address] PCP - General Nurse Practitioner 11/30/18 Norma Zhang APRN FLIGHT LINE SERVICE ATTENDANT [facility] [facility] [place] [address] Assigned PCP 10/25/18 05/03/22 Perry Milan MD [facility] [address] [place] [address] Assigned Pulmonology Provider 03/24/20 07/12/22 Jael Hess CNM [address] [place] [address] Assigned OBGYN Provider 11/10/21 3 Gale Braxton APRN CNM [address] [place] [address] Assigned OBGYN Provider 11/03/21 Amie Teixeira APRN FLIGHT LINE SERVICE ATTENDANT [address] [place] [address] Assigned PCP 05/04/22 06/21/22 Norma Zhang APRN FLIGHT LINE SERVICE ATTENDANT [address] [facility] [place] [address] Assigned PCP 06/22/22 Gale Braxton APRN CNM [address] [place] [address] Assigned OBGYN Provider 07/06/22 Irineo Lebron, PhD [address] [place] [address] Assigned Behavioral Health Provider 11/23/22 Linn Macias APRN CNM [facility] [address] [place] [address] Assigned OBGYN Provider 02/15/2303/28 Gale Braxton APRN CNM [address] [place] [address] Assigned OBGYN Provider 03/29/23 documented as of this encounter
--- OUTSIDE RECORDS SUMMARY | 2024-03-13 22:07 | XMS_ITS | Encounter Summary ---
Author Organization [facility] Address [address] [place] [address]. [place] [address] Care Team Providers Care Laundry Superintendent Name Role Phone Norma Zhang APRN LEAD QUALITY TECHNICIAN Unavailable Norma Zhang APRN LEAD QUALITY TECHNICIAN Primary Car e Provider Perry Milan MD Unavailable [phone] Cristina Giles SEASONAL RECRUITER CNM Unavailab le Jael Hess CNM Unavailable Shola, Aracelisixto Burleson CNM Unavailable Jael Hess CNM Unavailable [phone] Gale Braxton APRN CNM Unavailable Amie Teixeira APRN LEAD QUALITY TECHNICIAN Unavailable [phone] Norma Zhang APRN LEAD QUALITY TECHNICIAN Unavailable Gale Braxton APRN CNM Unavailable Irineo Lebron PhD Unavailable [phone] Linn Macias SEASONAL RECRUITER CNM Unavailable [phone] Gale Braxton APRN CNM Unavailable [phone] Encounter Details Date Type Department Care Team (Late st Contact Info) Description 06/21/2021 Documentation Only INTERFACED REPORT Unknown, Provider Social History Tobacco Use Types Packs/Day Years Used Date Smoking Tobacco: Never Smokeless Tobacco: Never Alcohol Use Standard Drinks/Week Comments Not Currently 0 (1 standard drink = 0.6 oz pure alcohol) socially, couple times per month PHQ-2 Answer Date Recorded PHQ-2 Score 0 01/10/2021 [place] Depression Scale Answer Date Recorded [place] Depression Score 2 03/14/2021 Last EPDS Self Harm Result Not on file 03/14 Comments Yes Sex and Gender Information Value Date Recorded Sex Assigned at Female 06/06/2018 9:16 PM EMPLOYEE RELATIONS MANAGER Gender Identity Female 06/06/2018 9:16 PM EMPLOYEE RELATIONS MANAGER Sexual Orientation Straight 06/06/2018 9: 16 PM EMPLOYEE RELATIONS MANAGER COVID-19 Exposure Response Date Recorded In the last month, have you been in contact with someone who was confirmed or suspected to have Coronavirus / COVID-19? No / Unsure 06/13/2021 8:50 AM EMPLOYEE RELATIONS MANAGER documented as of this encounter Plan of Treatment Upcoming Encounters Date Type Department Care Team (Late st Contact Info) Description 11/30/2024 7:00 AM CDT Office Visit [facility] [place] [address] [place] [address] Drive [address] [place] [address] Norma Zhang APRN LEAD QUALITY TECHNICIAN [address] [place] [address] [place] [address] documented as of this encounter Visit Diagnoses Not on filedocumented in this encounter Additional Health Concerns Infection Onset Date Last Indicated Resolved Time Influenza 04/27/2022 04/27/2022 05/04/2022 11:4 1 PM EMPLOYEE RELATIONS MANAGER Assessment Noted Time PHQ-9 Depression Total Score: 2 06/28/19 16 7:53 AM EMPLOYEE RELATIONS MANAGER documented as of this encounter Care Teams Laundry Superintendent Relationship Specialty Start Date End Date Norma Zhang APRN LEAD QUALITY TECHNICIAN [address] [place] [address] [place] [address] PCP - General Nurse Practitioner 11/30/18 Norma Zhang APRN LEAD QUALITY TECHNICIAN [address] [place] [address] [place] [address] Assigned PCP 10/25/18 05/03/22 Perry Milan MD [facility] [address] [place] [address] Assigned Pulmonology Provider 03/24/20 07/12/22 Cristina Giles APRN CNM [address] [place] [address] Assigned OBGYN Provider 04/08/21 Jael Hess CNM [address] [place] [address] Assigned OBGYN Provider 07/29/21 Araceli Jolley CNM [address] [place] [address] Assigned OBGYN Provider 10/27/21 2 Jael Hess CNM [address] [place] [address] Assigned OBGYN Provider 11/10/21 3 Gale Braxton APRN CNM [address] [place] [address] Assigned OBGYN Provider 11/03/21 Amie Teixeira APRN LEAD QUALITY TECHNICIAN [address] [place] [address] Assigned PCP 05/04/22 06/21/22 Norma Zhang APRN LEAD QUALITY TECHNICIAN [address] [facility] [place] [address] Assigned PCP 06/22/22 Gale Braxton APRN CNM [address] [place] [address] Assigned OBGYN Provider 07/06/22 Irineo Lebron, PhD [address] [place] [address] Assigned Behavioral Health Provider 11/23/22 Linn Macias APRN CNM [address] [place] [address] Assigned OBGYN Provider 02/15/2303/28 Gale Braxton APRN CNM [address] [place] [address] Assigned OBGYN Provider 03/29/23 documented as of this encounter
--- OUTSIDE RECORDS SUMMARY | 2024-03-13 22:07 | XMS_ITS | Encounter Summary ---
Author Organization [facility] Address [address] [place] [address] Care Team Providers Care String Studies Director Name Role Phone Norma Zhang APRN INSTRUCTIONAL TECHNOLOGIST Primary Car e Provider Norma Zhang APRN INSTRUCTIONAL TECHNOLOGIST Unavailable Gale Braxton APRN CNM Unavailable Irineo Lebron PhD Unavailable [phone] Linn Macias APRN CNM Unavailable Gale Braxton APRN CNM Unavailable Reason for Visit * Reason Onset Date Comments Medication Request 08/15/2022 nuvaring Encounter Details Date Type Department Care Team (Late st Contact Info) Description 08/15/2022 MyC Medical Advice [facility] [address], [address] [place] [address] Araceli Jolley, CNM [address] [place] [address] Medication Request (nuvaring) Social History Tobacco Use Types Packs/Day Years Used Date Smoking Tobacco: Never Smokeless Tobacco: Never Alcohol Use Standard Drinks/Week Comments Not Currently 0 (1 standard drink = 0.6 oz pure alcohol) socially, couple times per month PHQ-2 Answer Date Recorded PHQ-2 Score 0 06/17/2022 [place] Depression Scale Answer Date Recorded [place] Depression Score 3 10/31/2021 Last EPDS Self Harm Result Not on file 10/31 Sex and Gender Information Value Date Recorded Sex Assigned at Female 06/06/2018 9:16 PM MILL ROLL REWINDER Gender Identity Female 06/06/2018 9:16 PM MILL ROLL REWINDER Sexual Orientation Straight 06/06/2018 9: 16 PM MILL ROLL REWINDER documented as of this encounter Miscellaneous Notes * Telephone Encounter - Meli Campos RN - 08/15/2022 1:30 PM CDT Images from the original note were not included. Sofia Romero APRN CNM South Mr Teacher Triage 25 minutes ago (1:04 PM) NA Yes it is okay for her to use Nuvaring and send prescription. SOFIA Kidd APRN CNM * Telephone Encounter - Rossy Crowder RN - 08/15/2022 12:48 PM CDT PP mom is weaning and wanting to change back to nuvaring. Okay to send? Rossy Mathur WARP SPLITTER documented in this encounter Plan of Treatment Upcoming Encounters Date Type Department Care Team (Late st Contact Info) Description 11/30/2024 7:00 AM CDT Office Visit [facility] [place] [address] [place] [address] Drive [address] [place] [phone] Norma Zhang APRN [address] [place] [address] documented as of this encounter Visit Diagnoses Diagnosis Encounter for initial prescription of vaginal ring hormonal contraceptive- Primary documented in this encounter Additional Health Concerns Assessment Noted Time PHQ-9 Depression Total Score: 2 06/28/19 16 7:53 AM MILL ROLL REWINDER documented as of this encounter Care Teams String Studies Director Relationship Specialty Start Date End Date Norma Zhang APRN INSTRUCTIONAL TECHNOLOGIST [address] [facility] [place] [address] PCP - General Nurse Practitioner 11/30/18 Norma Zhang APRN INSTRUCTIONAL TECHNOLOGIST [address] [facility] [place] [address] Assigned PCP 06/22/22 Gale Braxton APRN CNM [address] [place] [address] Assigned OBGYN Provider 07/06/22 Irineo Lebron, PhD [address] [place] [address] Assigned Behavioral Health Provider 11/23/22 Linn Macias APRN CNM [address] [place] [address] Assigned OBGYN Provider 02/15/2303/28 Gale Braxton APRN CNM [address] [place] [address] Assigned OBGYN Provider 03/29/23 documented as of this encounter
--- OUTSIDE RECORDS SUMMARY | 2024-03-13 22:07 | XMS_ITS | Encounter Summary ---
Author Organization [facility] Address [address] [place] [address] Care Team Providers Care Landing Signal Officer Name Role Phone Norma Zhang APRN DISTRIBUTION ASSOCIATE Unavailable Norma Zhang APRN DISTRIBUTION ASSOCIATE Primary Car e Provider Perry Milan MD Unavailable [phone] Cristina Giles COUNTER CLERK FARM EQUIPMENT PARTS CNM Unavailab le Jael Hess CNM Unavailable [phone] Araceli Jolley Sarah Beth CNM Unavailable Jael Hess CNM Unavailable [phone] Gale Braxton APRN CNM Unavailable [phone] Amie Teixeira APRN DISTRIBUTION ASSOCIATE Unavailable [phone] Norma Zhang APRN DISTRIBUTION ASSOCIATE Unavailable Gale Braxton APRN CNM Unavailable Irineo Lebron PhD Unavailable [phone] Linn Macias COUNTER CLERK FARM EQUIPMENT PARTS CNM Unavailable [phone] Gale Braxton APRN CNM Unavailable [phone] Reason for Visit * Reason Onset Date Comments Prior Auth - Medication 04/24/2021 levalbut alex (XOPENEX HFA) 45 MCG/ACT inhaler- APPROVED Encounter Details Date Type Department Care Team (Late st Contact Info) Description 04/24/2021 Telephone [facility] [address] [phone] Perry Milan MD [facility] [place] [address] [place] [address] Prior Auth - Medication (levalbuterol (XOPENEX HFA) 45 MCG/ACT inhaler- APPROVED) Social History Tobacco Use Types Packs/Day Years Used Date Smoking Tobacco: Never Smokeless Tobacco: Never Alcohol Use Standard Drinks/Week Comments Not Currently 0 (1 standard drink = 0.6 oz pure alcohol) socially, couple times per month PHQ-2 Answer Date Recorded PHQ-2 Score 0 01/10/2021 [place] Depression Scale Answer Date Recorded [place] Depression Score 2 03/14/2021 Last EPDS Self Harm Result Not on file 03/14 Comments Yes Sex and Gender Information Value Date Recorded Sex Assigned at Female 06/06/2018 9:16 PM NSH TEACHER Gender Identity Female 06/06/2018 9:16 PM NSH TEACHER Sexual Orientation Straight 06/06/2018 9: 16 PM NSH TEACHER COVID-19 Exposure Response Date Recorded In the last month, have you been in contact with someone who was confirmed or suspected to have Coronavirus / COVID-19? No / Unsure 04/11/2021 8:22 AM NSH TEACHER documented as of this encounter Miscellaneous Notes * Telephone Encounter - Barbara Garcias Prosper - 04/25/2021 1:49 PM CST Images from the original note were not included. Prior Authorization Approval Authorization Effective Date: 03/26/2021 Authorization Expiration Date: 04/25/2022 Medication: levalbuterol (XOPENEX HFA) 45 MCG/ACT inhaler- APPROVED Approved Dose/Quantity: Reference #: Insurance Company: [employer] - Expected CoPay: CoPay Card Available: Foundation Assistance Needed: Which Pharmacy is filling the prescription (Not needed for infusion/clinic administered): [facility] - [place], [place] - [address] Pharmacy Notified: Yes Patient Notified: No TEACHER * Telephone Encounter - Mayco Arteaga - 04/24/2021 10:47 AM NSH TEACHER Images from the original note were not included. [facility]. . TEACHER documented in this encounter Plan of Treatment Upcoming Encounters Date Type Department Care Team (Late st Contact Info) Description 11/30/2024 7:00 AM CDT Office Visit [address] [place] [phone] Norma Zhang APRN CNP [address] [place] [address] [place] [address] documented as of this encounter Visit Diagnoses Not on filedocumented in this encounter Additional Health Concerns Infection Onset Date Last Indicated Resolved Time Influenza 04/27/2022 04/27/2022 05/04/2022 11:4 1 PM NSH TEACHER Assessment Noted Time PHQ-9 Depression Total Score: 2 06/28/19 16 7:53 AM NSH TEACHER documented as of this encounter Care Teams Landing Signal Officer Relationship Specialty Start Date End Date Norma Zhang APRN DISTRIBUTION ASSOCIATE [address] [place] [address] [place] [address] PCP - General Nurse Practitioner 11/30/18 Norma Zhang APRN DISTRIBUTION ASSOCIATE [address] [place] [address] [place] [address] Assigned PCP 10/25/18 05/03/22 Perry Milan MD [facility] [place] [address] [place] [address] Assigned Pulmonology Provider 03/24/20 07/12/22 Cristina Giles APRN CNM [address] [place], [place] [address] Assigned OBGYN Provider 04/08/21 Jael Hess CNM [address] [place] [address] Assigned OBGYN Provider 07/29/21 Araceli Jolley CNM [address] [place], [place] [address] Assigned OBGYN Provider 10/27/21 2 Jael Hess CNM [address] [place] [address] Assigned OBGYN Provider 11/10/21 3 Gale Braxton APRN CNM [address] [place] [address] Assigned OBGYN Provider 11/03/21 Amie Teixeira APRN DISTRIBUTION ASSOCIATE [address] [place] [address] Assigned PCP 05/04/22 06/21/22 Norma Zhang APRN DISTRIBUTION ASSOCIATE [address] [facility] [place] [address] Assigned PCP 06/22/22 Gale Braxton APRN CNM [address] [place] [address] Assigned OBGYN Provider 07/06/22 Irineo Lebron, PhD [address] [place] [address] Assigned Behavioral Health Provider 11/23/22 Linn Macias APRN CNM [address] [place] [address] Assigned OBGYN Provider 02/15/2303/28 Gale Braxton APRN CNRahel [address] [place] [address] Assigned OBGYN Provider 03/29/23 documented as of this encounter
--- OUTSIDE RECORDS SUMMARY | 2024-03-13 22:07 | XMS_ITS | Encounter Summary ---
Author Organization [facility] Address [address] [place] [address]. [place] [address] Care Team Providers Care Patient Financial Specialist Name Role Phone Norma Zhang APRN PERSONAL CAREGIVER Primary Car e Provider Norma Zhang APRN PERSONAL CAREGIVER Unavailable Irineo Lebron PhD Unavailable [phone] Reason for Visit * Reason Comments Medication Refill Encounter Details Date Type Department Care Team (Late st Contact Info) Description 12/18/[address] [facility] [place] [address] [place] [phone] Norma Zhang APRN PERSONAL CAREGIVER [address] [facility] [place] [id number] Medication Refill Social History Tobacco Use Types [...] re latives? Twice a week 11/24/2023 Attends [employer] Not on file 11/23 Active Member [...] Answer Date Recorded PHQ-2 Score 0 11/25/2023 [facility] Stress Questionnaire Answer Date [...] exercise at this level? 40 min 11/24/2023 [place] Depression Scale Answer Date Recorded [place] Depression Score 3 10/31/2021 Last EPDS Self [...] in an abandoned building, in an overnight intermediate, or couch-surfing.) Yes 11/24/2023 Are you worried [...] Sex Assigned at Female 06/06/2018 9:16 PM FLUMER Gender Identity Female 06/06/2018 9:16 PM FLUMER Sexual Orientation Straight 06/06/2018 9: 16 PM FLUMER documented as of this encounter Plan of Treatment Upcoming Encounters Date Type Department Care Team (Late st Contact Info) Description 11/30/2024 7:00 AM CDT Office Visit [facility] [place] [address] [place] [address] Drive [address] [place] [phone] Norma Zhang APRN PERSONAL CAREGIVER [address] [place] [address] [place] [address] documented as of this encounter Visit Diagnoses Diagnosis Bronchiectasis without complication (H) Bronchiectasis without acute exacerbation documented in this encounter Additional Health Concerns Assessment Noted Time PHQ-9 Depression Total Score: 2 04/04/20 23 10:40 AM CDT documented as of this encounter Care Teams Patient Financial Specialist Relationship Specialty Start Date End Date Norma Zhang APRN PERSONAL CAREGIVER [address] [place] [address] [place] [address] PCP - General Nurse Practitioner 11/30/18 Norma Zhang APRN PERSONAL CAREGIVER [address] [place] [address] [place] [address] Assigned PCP 06/22/22 Irineo Lebron, PhD [address] [place] [address] Assigned Behavioral Health Provider 11/23/22 documented as of this encounter
--- OUTSIDE RECORDS SUMMARY | 2024-03-13 22:07 | XMS_ITS | Encounter Summary ---
Author Organization [facility] Address [address] [place] [address]. [place] [address] Care Team Providers Care Finisher Hot Strip Name Role Phone Norma Zhang APRN ORACLE FUSION MIDDLEWARE DEVELOPER Primary Car e Provider Norma Zhang APRN ORACLE FUSION MIDDLEWARE DEVELOPER Unavailable Irineo Lebron PhD Unavailable [phone] Linn Macias FORESTRY BIOLOGY SPECIALIST CNM Unavailable [phone] Gale Braxton FORESTRY BIOLOGY SPECIALIST CNM Unavailable Encounter Details Date Type Department Care Team (Late st Contact Info) Description 02/24/2023 MyC Medical Advice [facility] [address] [place] [address] Norma Zhang APRN ORACLE FUSION MIDDLEWARE DEVELOPER [address] [facility] [place] [id number] Social History Tobacco Use Types Packs/Day Years [...] often do you attend chur ch or temple services? Never 11/11/2022 Do you belong to any clubs o r organizations such as buddhist groups, unions, fraternal or athletic groups, or [...] PHQ-2 Answer Date Recorded PHQ-2 Score 0 01/10/2023 [facility] - Occupational Stress Questionnaire Answer Date [...] place to sleep or slept in a nursing home (including now)? No 11/11/2022 [place] Depression Scale Answer Date Recorded [place] Depression Score 3 10/31/2021 Last EPDS Self Harm Result Not on file 10/31 Adolescent Education Answer Date Record ed Getting School Help Needed Not on file 02/25 Sex and Gender Information Value Date Recorded Sex Assigned at Female 06/06/2018 9:16 PM INSPECTOR WREATH Gender Identity Female 06/06/2018 9:16 PM INSPECTOR WREATH Sexual Orientation Straight 06/06/2018 9: 16 PM INSPECTOR WREATH documented as of this encounter Plan of Treatment Upcoming Encounters Date Type Department Care Team (Late st Contact Info) Description 11/30/2024 7:00 AM CDT Office Visit [facility] [place] [address] [place] [address] Drive [address] [place] [phone] Norma Zhang APRN CNP [address] [place] [address] [place] [address] documented as of this encounter Visit Diagnoses Not on filedocumented in this encounter Additional Health Concerns Assessment Noted Time PHQ-9 Depression Total Score: 3 12/18/19 23 1:45 PM CDT documented as of this encounter Care Teams Finisher Hot Strip Relationship Specialty Start Date End Date Norma Zhang APRN ORACLE FUSION MIDDLEWARE DEVELOPER [address] [place] [address] [place] [address] PCP - General Nurse Practitioner 11/30/18 Norma Zhang APRN ORACLE FUSION MIDDLEWARE DEVELOPER [address] [place] [address] [place] [address] Assigned PCP 06/22/22 Irineo Lebron, PhD [address] [place] [address] Assigned Behavioral Health Provider 11/23/22 Linn Macias APRN CNM [address] [place] [address] Assigned OBGYN Provider 02/15/2303/28 Gale Braxton APRN CNRahel [address] [place] [address] Assigned OBGYN Provider 03/29/23 documented as of this encounter
--- OUTSIDE RECORDS SUMMARY | 2024-03-13 22:07 | XMS_ITS | Encounter Summary ---
Author Organization [facility] Address [facility] [place] [address] Care Team Providers Care Environmental Protection Specialist Name Role Phone Norma Zhang APRN RESEARCH COMPUTING SPECIALIST Primary Car e Provider Perry Milan MD Unavailable [phone] Jael Hess CNM Unavailable [phone] Amie Teixeira APRN RESEARCH COMPUTING SPECIALIST Unavailable [phone] Norma Zhang APRN RESEARCH COMPUTING SPECIALIST Unavailable Gale Braxton APRN CNM Unavailable Irineo Lebron PhD Unavailable [phone] Linn Macias APRN CNM Unavailable [phone] Gale Braxton APRN CNM Unavailable [phone] Encounter Details Date Type Department Care Team (Late st Contact Info) Description 06/17/2022 [facility] Medical Advice [facility] [place] [address] [place] [address] Norma Zhang APRN RESEARCH COMPUTING SPECIALIST [address] [facility] [place] [id number] Social History Tobacco Use Types Packs/Day Years Used Date Smoking Tobacco: Never Smokeless Tobacco: Never Alcohol Use Standard Drinks/Week Comments Not Currently 0 (1 standard drink = 0.6 oz pure alcohol) socially, couple times per month PHQ-2 Answer Date Recorded PHQ-2 Score 0 06/17/2022 [place] Depression Scale Answer Date Recorded [place] Depression Score 3 10/31/2021 Last EPDS Self Harm Result Not on file 10/31 Sex and Gender Information Value Date Recorded Sex Assigned at Female 06/06/2018 9:16 PM REQUIREMENTS ENGINEER Gender Identity Female 06/06/2018 9:16 PM REQUIREMENTS ENGINEER Sexual Orientation Straight 06/06/2018 9: 16 PM REQUIREMENTS ENGINEER documented as of this encounter Miscellaneous Notes * Telephone Encounter - Cooper Gan RN - 06/17/2022 12:44 PM REQUIREMENTS ENGINEER Norma Carpenter: See pt message and advise. Pt seen today and prescribed wellbutrin for anxiety, alcohol use. Pt admits to and wondering if okay to use. Per Up-to-Date: Considerations Bupropion and its active metabolites are present in breast milk. The treatment plant mechanic reports the relative infant dose (RID) of bupropion and its active metabolites to be ~2% of a weight-adjusted maternal dose. In one report, the RID of bupropion ranged from 1.4% to 10.6% of the maternal dose when calculated using actual weights and maternal doses ranging from 150 to 300 mg/day (Toy 2009). In general, is considered acceptable when the RID is <10% (Mickey 2016; Taz 2000); however, some sources note should only be considered if the RID is <5% for psychotropic agents (Chance 2015). Bupropion and its active metabolites can be detected in the serum and urine of infants (Toy 2009; Popeye 2014). Seizures and sleep disturbances have been reported in infants following bupropion exposure via breast milk (Daniel 2004; Bowden 2010; Popeye 2014). Infants of mothers using psychotropicmedications should be monitored daily for changes in sleep, feeding patterns, and behavior, as wellas growth and neurodevelopment (ABM [Kelle 2015]; Sachs 2013; WFSBP [Perla 2013]). Psychotherapy or other nonmedication therapies are recommended for the initial treatment of mild depression in patients; however, antidepressant medication is recommended when psychotherapy is not an option or when symptoms are moderate to severe (ABM [Kelle 2015]). When first initiating an antidepressant in a patient who is , agents other than bupropion are preferred (CANMAT [Roni 2016]); however, maternal use of bupropion is not considered a reason to discontinue (ABM [Kelle 2015]). If treatment for smoking cessation is needed , agents other than bupropion are preferred (Sachs 2013). According to the treatment plant mechanic, the decision to breastfeed during therapy should consider the risk of infant exposure, the benefits of to the , and benefits of treatment to the mother. - Sancho Gan (he/him/his), RN - Patient Advocate Liason (PAL) [facility] IREMENTS ENGINEER documented in this encounter Plan of Treatment Upcoming Encounters Date Type Department Care Team (Late st Contact Info) Description 11/30/2024 7:00 AM CDT Office Visit [address] [place] [address] Norma Zhang APRN RESEARCH COMPUTING SPECIALIST [address] [place] [address] [place] [address] documented as of this encounter Visit Diagnoses Not on filedocumented in this encounter Additional Health Concerns Assessment Noted Time PHQ-9 Depression Total Score: 2 06/28/19 16 7:53 AM REQUIREMENTS ENGINEER documented as of this encounter Care Teams Environmental Protection Specialist Relationship Specialty Start Date End Date Norma Zhang APRN RESEARCH COMPUTING SPECIALIST [address] [place] [address] [place] [address] PCP - General Nurse Practitioner 11/30/18 Perry Milan MD [facility] [address] [place] [address] Assigned Pulmonology Provider 03/24/20 07/12/22 Jael Hess CNM [address] [place] [address] Assigned OBGYN Provider 11/10/21 3 Amie Teixeira APRN RESEARCH COMPUTING SPECIALIST [address] [place] [address] Assigned PCP 05/04/22 06/21/22 Nroma Zhang APRN RESEARCH COMPUTING SPECIALIST [address] [facility] [place] [address] Assigned PCP 06/22/22 Gale Braxton APRN CNM [address] [place] [address] Assigned OBGYN Provider 07/06/22 Irineo Lebron, PhD [address] [place] [address] Assigned Behavioral Health Provider 11/23/22 Linn Macias APRN CNM [address] [place] [address] Assigned OBGYN Provider 02/15/2303/28 Gale Braxton APRN CN [address] [place] [address] Assigned OBGYN Provider 03/29/23 documented as of this encounter
--- OUTSIDE RECORDS SUMMARY | 2024-03-13 22:07 | XMS_ITS | Encounter Summary ---
Author Organization [facility] Address [address] [place] [address]. [place] [address] Care Team Providers Care Safety Person Name Role Phone Norma Zhang APRN, CNP Primary Car e Provider Norma Zhang APRN COPPER ROLLER HANDLER PRINTING Unavailable Gale Braxton APRN CNM Unavailable Irineo Lebron PhD Unavailable [phone] Linn Macias APRN CNM Unavailable [phone] Gale Braxton APRN CNM Unavailable [phone] Encounter Details Date Type Department Care Team (Late st Contact Info) Description 12/06/2022 MyC Medical Advice [facility] [address] [facility] [address] [place] [address] Norma Zhang APRN CNP [address] [facility] [place] [phone] Social History Tobacco Use Types Packs/Day Years [...] How often do you attend chur or baptist services? Never 11/11/2022 Do you belong to any clubs o r organizations such as temple groups, unions, fraternal or athletic groups, or [...] PHQ-2 Answer Date Recorded PHQ-2 Score 0 11/13/2022 [facility] - Occupational Stress [...] place to sleep or slept in a mcc (including now)? No 11/11/2022 [place] Depression Scale Answer Date Recorded [place] Depression Score 3 10/31/2021 Last EPDS Self Harm Result Not on file 10/31 Sex and Gender Information Value Date Recorded Sex Assigned at Female 06/06/2018 9:16 PM RIGGING ENGINEER Gender Identity Female 06/06/2018 9:16 PM RIGGING ENGINEER Sexual Orientation Straight 06/06/2018 9: 16 PM RIGGING ENGINEER COVID-19 Exposure Response Date Recorded In the last 10 days, have yo u been in contact with someone who was confirmed or suspected to have Coronavirus/COVID-19? No / Unsure 11/12/2022 1:18 PM CDT documented as of this encounter Miscellaneous Notes * Telephone Encounter - Cooper Gan RN - 12/09/2022 8:26 AM CDT Pt sent update with new medication. Per OV on 11/12/2022: (F41.1) Generalized anxiety disorder (F32.A) Depression, unspecified depression type Comment: See previous notes. Currently struggling with inattention and anxiety. Low mood (depression) has improved with wellbutrin and cessation of ETOH but still feeling like she is having trouble prioritizing and completing tasks (worse at home than at work). Also feels she has a few days every week that involve unmanageable anxiety. Plan: buPROPion (WELLBUTRIN XL) 300 MG 24 hr tablet -Has upcoming visits scheduled for ADHD eval. I suspect she does not have adhd given that this did not start until the last few years. -Increase Wellbutrin to 300mg. If this doesn't improve focus could consider going back to 150mg (initially helped with focus). If this worsens anxiety will reduce back to 150mg and try Prozac (no improvement previously with zoloft. Tried prozac in high school but didn't take regularly. Prozac weight neutral, which she is looking for). -Continue therapy and other self care measures. -Take advantage of a few hours per week to have mother in law with kids to tackle house administrative issues without distraction. -Message me with an update in 2 weeks - Sancho Gan (he/him/his), RN - Patient Advocate Liason (PAL) [facility] documented in this encounter Plan of Treatment Upcoming Encounters Date Type Department Care Team (Late st Contact Info) Description 11/30/2024 7:00 AM CDT Office Visit [address] [place] [address] Norma Zhang APRN COPPER ROLLER HANDLER PRINTING [address] [place] [address] [place] [id number] documented as of this encounter Visit Diagnoses Not on filedocumented in this encounter Additional Health Concerns Assessment Noted Time PHQ-9 Depression Total Score: 2 11/14/19 23 9:33 AM CDT documented as of this encounter Care Teams Safety Person Relationship Specialty Start Date End Date Norma Zhang APRN CNP [address] [place] [address] [place] [address] PCP - General Nurse Practitioner 11/30/18 Norma Zhang APRN CNP [address] [place] [address] [place] [address] Assigned PCP 06/22/22 Gale [place] [address] Assigned OBGYN Provider 07/06/22 Irineo Lebron, PhD [address] [place] [address] Assigned Behavioral Health Provider 11/23/22 Linn Macias APRN CNM [address] [place] [address] Assigned OBGYN Provider 02/15/2303/28 Gale Braxton APRN CNM [address] [place] [address] Assigned OBGYN Provider 03/29/23 documented as of this encounter
--- OUTSIDE RECORDS SUMMARY | 2024-03-13 22:07 | XMS_ITS | Encounter Summary ---
Author Organization [place] Address [facility] [place] [address] Care Team Providers Care Stack Yield Engineer Name Role Phone Norma Zhang APRN FUEL OIL TRUCK DRIVER Primary Car e Provider Perry Milan MD Unavailable [phone] Jael Hess CNM Unavailable Amie Teixeira APRN FUEL OIL TRUCK DRIVER Unavailable [phone] Norma Zhang APRN FUEL OIL TRUCK DRIVER Unavailable Gale Braxton APRN CNM Unavailable [phone] Irineo Lebron PhD Unavailable [phone] Linn Macias APRN CNM Unavailable [phone] Gale Braxton APRN CNM Unavailable [phone] Encounter Details Date Type Department Care Team (Late st Contact Info) Description 05/14/2022 [facility] Medical Advice [facility] [place] [address] [place] [address] Tammie Ramirez, CUSTOMER ASSISTANCE REPRESENTATIVE [address] [facility] [place] [address] Social History Tobacco Use Types Packs/Day Years Used Date Smoking Tobacco: Never Smokeless Tobacco: Never Alcohol Use Standard Drinks/Week Comments Not Currently 0 (1 standard drink = 0.6 oz pure alcohol) socially, couple times per month PHQ-2 Answer Date Recorded PHQ-2 Score 0 04/18/2022 [place] Depression Scale Answer Date Recorded [place] Depression Score 3 10/31/2021 Last EPDS Self Harm Result Not on file 10/31 Sex and Gender Information Value Date Recorded Sex Assigned at Female 06/06/2018 9:16 PM FREELANCE PROGRAMMER/APP DEVELOPER Gender Identity Female 06/06/2018 9:16 PM FREELANCE PROGRAMMER/APP DEVELOPER Sexual Orientation Straight 06/06/2018 9: 16 PM FREELANCE PROGRAMMER/APP DEVELOPER COVID-19 Exposure Response Date Recorded In the last 10 days, have yo u been in contact with someone who was confirmed or suspected to have Coronavirus/COVID-19? No / Unsure 05/10/2022 7:03 AM FREELANCE PROGRAMMER/APP DEVELOPER documented as of this encounter Plan of Treatment Upcoming Encounters Date Type Department Care Team (Late st Contact Info) Description 11/30/2024 7:00 AM CDT Office Visit [facility] [place] [address] [place] [address] Drive [address] [place] [phone] Norma Zhang APRN FUEL OIL TRUCK DRIVER [address] [place] [address] [place] [address] documented as of this encounter Visit Diagnoses Not on filedocumented in this encounter Additional Health Concerns Assessment Noted Time PHQ-9 Depression Total Score: 2 06/28/19 16 7:53 AM FREELANCE PROGRAMMER/APP DEVELOPER documented as of this encounter Care Teams Stack Yield Engineer Relationship Specialty Start Date End Date Norma Zhang APRN FUEL OIL TRUCK DRIVER [address] [place] [address] [place] [address] PCP - General Nurse Practitioner 11/30/18 Perry Milan MD [facility] [address] [place] [address] Assigned Pulmonology Provider 03/24/20 07/12/22 Jael Hess CNM [address] [place] [address] Assigned OBGYN Provider 11/10/21 3 Amie Teixeira APRN FUEL OIL TRUCK DRIVER [address] [place] [address] Assigned PCP 05/04/22 06/21/22 Norma Zhang APRN FUEL OIL TRUCK DRIVER [address] [facility] [place] [address] Assigned PCP 06/22/22 Gale Braxton APRN CNM [address] [place] [address] Assigned OBGYN Provider 07/06/22 Irineo Lebron, PhD [address] [place] [address] Assigned Behavioral Health Provider 11/23/22 Linn Macisa APRN CNM [facility] [address] [place] [address] Assigned OBGYN Provider 02/15/2303/28 Gale Braxton APRN CNM [address] [place] [address] Assigned OBGYN Provider 03/29/23 documented as of this encounter
--- OUTSIDE RECORDS SUMMARY | 2024-03-13 22:08 | XMS_ITS | Encounter Summary ---
Author Organization [place] Address [address] [place] [address]. [place] [address] Care Team Providers Care Implementation Engineer Name Role Phone Norma Zhang APRN ASSEMBLER ADJUSTER Unavailable Norma Zhang APRN ASSEMBLER ADJUSTER Primary Car e Provider Hi Benson MD Unavailable Ward Jennings MD Unavailable Perry Milan MD Unavailable Cristina Giles SUPERANNUATION FUNDS MANAGER CNM Unavailab le Jael Hess CNM Unavailable [phone] Araceli Jolley CNM Unavailable Jael Hess CNM Unavailable [phone] Gale Braxton APRN CNM Unavailable Amie Teixeira APRN ASSEMBLER ADJUSTER Unavailable [phone] Norma Zhang APRN ASSEMBLER ADJUSTER Unavailable Gale Braxton APRN CNM Unavailable Irineo Lebron PhD Unavailable [phone] Linn Macias APRN CNM Unavailable [phone] Gale Braxton APRN CNM Unavailable Encounter Details Date Type Department Care Team (Late st Contact Info) Description 03/07/2020 MyC Medical Advice [facility] [address] [phone] Perry Milan MD [facility] [address] [place] [address] Social History Tobacco Use Types Packs/Day Years Used Date Smoking Tobacco: Never Smokeless Tobacco: Never Alcohol Use Standard Drinks/Week Comments Yes 0 (1 standard drink = 0.6 oz pure alcohol) socially, couple times per month PHQ-2 Answer Date Recorded PHQ-2 Score 0 03/07/2020 [place] Depression Scale Answer Date Recorded [place] Depression Score 2 02/28/2020 Last EPDS Self Harm Result Not on file 02/27 Sex and Gender Information Value Date Recorded Sex Assigned at Female 06/06/2018 9:16 PM PRODUCE TEAM LEAD Gender Identity Female 06/06/2018 9:16 PM PRODUCE TEAM LEAD Sexual Orientation Straight 06/06/2018 9: 16 PM PRODUCE TEAM LEAD COVID-19 Exposure Response Date Recorded In the last month, have you been in contact with someone who was confirmed or suspected to have Coronavirus / COVID-19? No / Unsure 02/28/2020 8:31 AM CDT documented as of this encounter Plan of Treatment Upcoming Encounters Date Type Department Care Team (Late st Contact Info) Description 11/30/2024 7:00 AM CDT Office Visit [facility] [place] [address] [place] [address] [address] [place] [phone] Norma Zhang APRN [facility] [address] [place] [address] [place] [address] documented as of this encounter Visit Diagnoses Not on filedocumented in this encounter Additional Health Concerns Infection Onset Date Last Indicated Resolved Time Influenza 04/27/2022 04/27/2022 05/04/2022 11:4 1 PM PRODUCE TEAM LEAD Assessment Noted Time PHQ-9 Depression Total Score: 2 06/28/19 16 7:53 AM PRODUCE TEAM LEAD documented as of this encounter Care Teams Implementation Engineer Relationship Specialty Start Date End Date Norma Zhang APRN ASSEMBLER ADJUSTER [address] [facility] [place] [address] PCP - General Nurse Practitioner 11/30/18 Norma Zhang APRN ASSEMBLER ADJUSTER [address] [facility] [place] [address] Assigned PCP 10/25/18 05/03/22 Hi Benson MD [address] [place] [address] Assigned Surgical Provider 03/24/20 07/15/20 Ward Jennings MD [address] [place] [address] Assigned OBGYN Provider 03/24/20 Perry Milan MD [facility] [address] [place] [address] Assigned Pulmonology Provider 03/24/20 07/12/22 Cristina Giles APRN CNM [address] [address] Assigned OBGYN Provider 04/08/21 Jael Hess CNM [address] [place] [address] Assigned OBGYN Provider 07/29/21 Araceli Jolley CNM [address] [place] [address] Assigned OBGYN Provider 10/27/21 2 Jael Hess CNM [address] [place] [address] Assigned OBGYN Provider 11/10/212 3 Gale Braxton APRN CNM [address] [place] [address] Assigned OBGYN Provider 11/03/21 Amie Teixeira APRN ASSEMBLER ADJUSTER [address] [place] [address] Assigned PCP 05/04/22 06/21/22 Norma Zhang APRN ASSEMBLER ADJUSTER [address] [place] [address] Assigned PCP 06/22/22 Gale Braxton APRN CNM [address] [place] [address] Assigned OBGYN Provider 07/06/22 Irineo Lebron, PhD [address] [place] [address] Assigned Behavioral Health Provider 11/23/22 Linn Macias APRN CNM [facility] [address] Assigned OBGYN Provider 02/15/2303/28 Gale Braxton APRN [facility] [address] [place] [address] Assigned OBGYN Provider 03/29/23 documented as of this encounter
--- OUTSIDE RECORDS SUMMARY | 2024-03-13 22:08 | XMS_ITS | Encounter Summary ---
Author Organization [place] Address [address] [place] [address]. [place] [address] Care Team Providers Care Sausage Inspector Name Role Phone Norma Zhang APRN, CNP Unavailable Norma Zhang APRN DISTRIBUTION SYSTEMS SUPERINTENDENT Primary Car e Provider Ward Jennings MD Unavailable Perry Milan MD Unavailable [phone] Cristina Giles ACCOUNTS PAYABLES CLERK CNM Unavailab le Jael Hess CNM Unavailable [phone] Araceli Jolley CNM Unavailable Jael Hess CNM Unavailable [phone] Gale Braxton APRN CNM Unavailable Amie Teixeira APRN DISTRIBUTION SYSTEMS SUPERINTENDENT Unavailable [phone] Norma Zhang APRN DISTRIBUTION SYSTEMS SUPERINTENDENT Unavailable Gale Braxton APRN CNM Unavailable Irineo Lebron PhD Unavailable [phone] Linn Macias APRN CNM Unavailable [phone] Gale Braxton APRN CNM Unavailable Encounter Details Date Type Department Care Team (Late st Contact Info) Description 08/16/2020 Documentation Only INTERFACED REPORT Unknown, Provider Social History Tobacco Use Types Packs/Day Years Used Date Smoking Tobacco: Never Smokeless Tobacco: Never Alcohol Use Standard Drinks/Week Comments Yes 0 (1 standard drink = 0.6 oz pure alcohol) socially, couple times per month PHQ-2 Answer Date Recorded PHQ-2 Score 0 03/07/2020 [place] Depression Scale Answer Date Recorded [place] Depression Score 0 03/27/2020 Last EPDS Self Harm Result Not on file 03/27 Sex and Gender Information Value Date Recorded Sex Assigned at Female 06/06/2018 9:16 PM ELECTRICIAN TECHNICIAN Gender Identity Female 06/06/2018 9:16 PM ELECTRICIAN TECHNICIAN Sexual Orientation Straight 06/06/2018 9: 16 PM ELECTRICIAN TECHNICIAN documented as of this encounter Plan of Treatment Upcoming Encounters Date Type Department Care Team (Late st Contact Info) Description 11/30/2024 7:00 AM CDT Office Visit [facility] [place] [address] [place] [address] Drive [address] [place] [phone] Norma Zhagn APRN DISTRIBUTION SYSTEMS SUPERINTENDENT [address] [place] [address] [place] [address] documented as of this encounter Visit Diagnoses Not on filedocumented in this encounter Additional Health Concerns Infection Onset Date Last Indicated Resolved Time Influenza 04/27/2022 04/27/2022 05/04/2022 11:4 1 PM ELECTRICIAN TECHNICIAN Assessment Noted Time PHQ-9 Depression Total Score: 2 06/28/19 16 7:53 AM ELECTRICIAN TECHNICIAN documented as of this encounter Care Teams Sausage Inspector Relationship Specialty Start Date End Date Norma Zhang APRN DISTRIBUTION SYSTEMS SUPERINTENDENT [address] [place] [address] [place] [address] PCP - General Nurse Practitioner 11/30/18 Norma Zhang APRN DISTRIBUTION SYSTEMS SUPERINTENDENT [address] [place] [address] [place] [address] Assigned PCP 10/25/18 05/03/22 Ward Jennings MD [address] [place] [address] Assigned OBGYN Provider 03/24/20 Perry Milan MD [facility] [address] [place] [address] Assigned Pulmonology Provider 03/24/20 07/12/22 Cristina Giles APRN [facility] [address] [place] [address] Assigned OBGYN Provider 04/08/21 Jael Hess CNM [address] [place] [address] Assigned OBGYN Provider 07/29/21 Araceli Jolley CNM [address] [place] [address] Assigned OBGYN Provider 10/27/21 2 Jael Hess CNM [address] [place] [address] Assigned OBGYN Provider 11/10/21 3 Gale Braxton APRN [facility] [address] [place] [address] Assigned OBGYN Provider 11/03/21 Amie Teixeira APRN DISTRIBUTION SYSTEMS SUPERINTENDENT [address] [place] [address] Assigned PCP 05/04/22 06/21/22 Norma Zhang APRN DISTRIBUTION SYSTEMS SUPERINTENDENT [address] [place] [address] Assigned PCP 06/22/22 Gale Braxton APRN [facility] [address] [place] [address] Assigned OBGYN Provider 07/06/22 Irineo Lebron, PhD [address] [place] [address] Assigned Behavioral Health Provider 11/23/22 Linn Macias APRN CNM [address] [address] Assigned OBGYN Provider 02/15/2303/28 Gale Braxton APRN [facility] [address] [place] [address] Assigned OBGYN Provider 03/29/23 documented as of this encounter
--- OUTSIDE RECORDS SUMMARY | 2024-03-13 22:08 | XMS_ITS | Encounter Summary ---
Author Organization [place] Address [address] [place] [address]. [place] [address] Care Team Providers Care Finance Associate Name Role Phone Norma Zhang APRN ACCOUNTING BOOKKEEPER Unavailable Norma Zhang APRN ACCOUNTING BOOKKEEPER Primary Car e Provider Hi Benson MD Unavailable Ward Jennings MD Unavailable Perry Milan MD Unavailable Cristina Giles PEDIATRICIAN MANAGING PARTNER CNM Unavailab le Jael Hess CNM Unavailable [phone] Araceli Jolley CNM Unavailable Jael Hess CNM Unavailable [phone] Gale Braxton APRN CNM Unavailable Amie Teixeira APRN ACCOUNTING BOOKKEEPER Unavailable [phone] Norma Zhang APRN ACCOUNTING BOOKKEEPER Unavailable Gale Braxton APRN CNM Unavailable Irineo Lebron PhD Unavailable [phone] Linn Macias APRN CNM Unavailable [phone] Gale Braxton APRN CNM Unavailable Encounter Details Date Type Department Care Team (Late st Contact Info) Description 02/23/2020 MyC Medical Advice [facility] [place] [address] [place] [phone] ChanCristinateresa, PEDIATRICIAN MANAGING PARTNER CNM [address] [place], [address] [place], [place] [address] Social History Tobacco Use Types Packs/Day Years Used Date Smoking Tobacco: Never Smokeless Tobacco: Never Alcohol Use Standard Drinks/Week Comments Yes 0 (1 standard drink = 0.6 oz pure alcohol) socially, couple times per month PHQ-2 Answer Date Recorded PHQ-2 Score 0 06/09/2018 [place] Depression Scale Answer Date Recorded [place] Depression Score 5 02/21/2020 Last EPDS Self Harm Result Not on file 02/20 Sex and Gender Information Value Date Recorded Sex Assigned at Female 06/06/2018 9:16 PM PELT SHEARER Gender Identity Female 06/06/2018 9:16 PM PELT SHEARER Sexual Orientation Straight 06/06/2018 9: 16 PM PELT SHEARER COVID-19 Exposure Response Date Recorded In the last month, have you been in contact with someone who was confirmed or suspected to have Coronavirus / COVID-19? No / Unsure 02/21/2020 7:53 AM CDT documented as of this encounter Plan of Treatment Upcoming Encounters Date Type Department Care Team (Late st Contact Info) Description 11/30/2024 7:00 AM CDT Office Visit [facility] [place] [address] [place] [address] Drive [address] [place] [phone] Norma Zhang, JOSTIN ACCOUNTING BOOKKEEPER [address] [facility] [place] [address] documented as of this encounter Visit Diagnoses Not on filedocumented in this encounter Additional Health Concerns Infection Onset Date Last Indicated Resolved Time Influenza 04/27/2022 04/27/2022 05/04/2022 11:4 1 PM PELT SHEARER Assessment Noted Time PHQ-9 Depression Total Score: 2 06/28/19 16 7:53 AM PELT SHEARER documented as of this encounter Care Teams Finance Associate Relationship Specialty Start Date End Date Norma Zhang APRN ACCOUNTING BOOKKEEPER [address] [facility] [place] [address] PCP - General Nurse Practitioner 11/30/18 Norma Zhang APRN ACCOUNTING BOOKKEEPER [address] [facility] [place] [address] Assigned PCP 10/25/18 05/03/22 Hi Benson MD [address] [place] [address] Assigned Surgical Provider 03/24/20 07/15/20 Ward Jennings MD [address] [place] [address] Assigned OBGYN Provider 03/24/20 Perry Milan MD [facility] [address] [place] [address] Assigned Pulmonology Provider 03/24/20 07/12/22 Cristina Giles [place] [address] [address] Assigned OBGYN Provider 04/08/21 Jael Hess CNM [address] [place] [address] Assigned OBGYN Provider 07/29/21 Araceli Jolley CNM [address] [place] [address] Assigned OBGYN Provider 10/27/21 2 Jael Hess CNM [address] [place] [address] Assigned OBGYN Provider 11/10/2107/05/2 3 Gale Braxton APRN CNM [address] [place] [address] Assigned OBGYN Provider 11/03/21 Amie Teixeira APRN ACCOUNTING BOOKKEEPER [address] [place] [address] Assigned PCP 05/04/22 06/21/22 Norma Zhang APRN ACCOUNTING BOOKKEEPER [address] [facility] [place] [address] Assigned PCP 06/22/22 Gale Braxton APRN CNM [address] [place] [address] Assigned OBGYN Provider 07/06/22 Irineo Lebron, PhD [address] [place] [address] Assigned Behavioral Health Provider 11/23/22 Linn Macias APRN CNM [facility] [address] [address] Assigned OBGYN Provider 02/15/2303/28 Gale Braxton APRN CNM [address] [place] [address] Assigned OBGYN Provider 03/29/23 documented as of this encounter
--- OUTSIDE RECORDS SUMMARY | 2024-03-13 22:08 | XMS_ITS | Encounter Summary ---
Author Organization [place] Address [address] [place] [address]. [place] [address] Care Team Providers Care Hydrometeorologist Name Role Phone Norma Zhang APRN SHIFT SUPERVISOR MELTING Unavailable Norma Zhang APRN SHIFT SUPERVISOR MELTING Primary Car e Provider Hi Benson MD Unavailable Ward Jennings MD Unavailable Perry Milan MD Unavailable [phone] Cristina Giles DREDGE HAND CNM Unavailab le Jael Hess CNM Unavailable [phone] Araceli Jolley CNM Unavailable Jael Hess CNM Unavailable [phone] Gale Braxton APRN CNM Unavailable Amie Teixeira APRN SHIFT SUPERVISOR MELTING Unavailable [phone] Norma Zhang APRN SHIFT SUPERVISOR MELTING Unavailable Gale Braxton APRN CNM Unavailable Irineo Lebron PhD Unavailable [phone] Linn Macias APRN CNM Unavailable [phone] Gale Braxton APRN CNM Unavailable Encounter Details Date Type Department Care Team (Late st Contact Info) Description 11/12/2019 MyC Medical Advice [facility] [address] [phone] [facility] Social History Tobacco Use Types Packs/Day Years Used Date Smoking Tobacco: Never Smokeless Tobacco: Never Alcohol Use Standard Drinks/Week Comments Yes 0 (1 standard drink = 0.6 oz pure alcohol) socially, couple times per month PHQ-2 Answer Date Recorded PHQ-2 Score 0 06/09/2018 Comments Yes Sex and Gender Information Value Date Recorded Sex Assigned at Female 06/06/2018 9:16 PM BRAIDER OPERATOR Gender Identity Female 06/06/2018 9:16 PM BRAIDER OPERATOR Sexual Orientation Straight 06/06/2018 9: 16 PM BRAIDER OPERATOR documented as of this encounter Plan of Treatment Upcoming Encounters Date Type Department Care Team (Late st Contact Info) Description 11/30/2024 7:00 AM CDT Office Visit [facility] [place] [address] [place] [address] Drive [address] [place] [phone] Norma Zhang APRN SHIFT SUPERVISOR MELTING [address] [place] [address] [place] [address] documented as of this encounter Visit Diagnoses Not on filedocumented in this encounter Additional Health Concerns Infection Onset Date Last Indicated Resolved Time Influenza 04/27/2022 04/27/2022 05/04/2022 11:4 1 PM BRAIDER OPERATOR Assessment Noted Time PHQ-9 Depression Total Score: 2 06/28/19 16 7:53 AM BRAIDER OPERATOR documented as of this encounter Care Teams Hydrometeorologist Relationship Specialty Start Date End Date Norma Zhang APRN SHIFT SUPERVISOR MELTING [address] [place] [address] [place] [address] PCP - General Nurse Practitioner 11/30/18 Norma Zhang APRN SHIFT SUPERVISOR MELTING [address] [place] [address] [place] [address] Assigned PCP 10/25/18 05/03/22 Hi Benson MD [address] [place] [address] Assigned Surgical Provider 03/24/20 07/15/20 Ward Jennings MD [address] [place] [address] Assigned OBGYN Provider 03/24/20 Perry Milan MD [facility] [address] [place] [address] Assigned Pulmonology Provider 03/24/20 07/12/22 [place] [address] [place] [address] Assigned OBGYN Provider 04/08/21 Jael Hess CNM [address] [place] [address] Assigned OBGYN Provider 07/29/21 Araceli Jolley CNM [address] [place] [address] Assigned OBGYN Provider 10/27/21 2 Jael Hess CNM [address] [place] [address] Assigned OBGYN Provider 11/10/21 3 Gale Braxton APRN CNM [address] [place] [address] Assigned OBGYN Provider 11/03/21 Amie Teixeira APRN SHIFT SUPERVISOR MELTING [address] [place] [address] Assigned PCP 05/04/22 06/21/22 Norma Zhang APRN SHIFT SUPERVISOR MELTING [address] [facility] [place] [address] Assigned PCP 06/22/22 Gale Braxton APRN CN [address] [place] [address] Assigned OBGYN Provider 07/06/22 Irineo Lebron, PhD [address] [place] [address] Assigned Behavioral Health Provider 11/23/22 Linn Macias APRN CNM [address] [place] [address] Assigned OBGYN Provider 02/15/2303/28 Gale Braxton APRN CN [address] [place] [address] Assigned OBGYN Provider 03/29/23 documented as of this encounter
--- OUTSIDE RECORDS SUMMARY | 2024-03-13 22:08 | XMS_ITS | Encounter Summary ---
Author Organization [place] Address [address] [place] [address]. [place] [address] Care Team Providers Care Asphalt Mixer Name Role Phone Norma Zhang APRN, CNP Unavailable Norma Zhang APRN CABIN OUTFITTER Primary Car e Provider Ward Jennings MD Unavailable Perry Milan MD Unavailable [phone] Cristina Giles DRAFTING CLERK CNM Unavailab le Jael Hess CNM Unavailable [phone] Araceli Jolley CNM Unavailable Jael Hess CNM Unavailable [phone] Gale Braxton APRN CNM Unavailable Amie Teixeira APRN CABIN OUTFITTER Unavailable [phone] Norma Zhang APRN CABIN OUTFITTER Unavailable Gale Braxton APRN CNM Unavailable Irineo Lebron PhD Unavailable [phone] Linn Macias APRN CNM Unavailable [phone] Gale Braxton APRN CNM Unavailable Encounter Details Date Type Department Care Team (Late st Contact Info) Description 01/03/2021 MyC Medical Advice [facility] [address] [place] [address] Jael Hess CNM [address] [place] [address] Social History Tobacco Use Types Packs/Day Years Used Date Smoking Tobacco: Never Smokeless Tobacco: Never Alcohol Use Standard Drinks/Week Comments Yes 0 (1 standard drink = 0.6 oz pure alcohol) socially, couple times per month PHQ-2 Answer Date Recorded PHQ-2 Score 0 03/07/2020 [place] Depression Scale Answer Date Recorded [place] Depression Score 0 03/27/2020 Last EPDS Self Harm Result Not on file 03/27 Sex and Gender Information Value Date Recorded Sex Assigned at Female 06/06/2018 9:16 PM SEO ASSISTANT Gender Identity Female 06/06/2018 9:16 PM SEO ASSISTANT Sexual Orientation Straight 06/06/2018 9: 16 PM SEO ASSISTANT COVID-19 Exposure Response Date Recorded In the last month, have you been in contact with someone who was confirmed or suspected to have Coronavirus / COVID-19? No / Unsure 01/03/2021 10:51 AM CDT documented as of this encounter Plan of Treatment Upcoming Encounters Date Type Department Care Team (Late st Contact Info) Description 11/30/2024 7:00 AM CDT Office Visit [facility] [place] [address] [place] [address] [address] [place] [address] Norma Zhang APRN [address] [place] [address] documented as of this encounter Visit Diagnoses Not on filedocumented in this encounter Additional Health Concerns Infection Onset Date Last Indicated Resolved Time Influenza 04/27/2022 04/27/2022 05/04/2022 11:4 1 PM SEO ASSISTANT Assessment Noted Time PHQ-9 Depression Total Score: 2 06/28/19 16 7:53 AM SEO ASSISTANT documented as of this encounter Care Teams Asphalt Mixer Relationship Specialty Start Date End Date Norma Zhang APRN CABIN OUTFITTER [address] [facility] [place] [address] PCP - General Nurse Practitioner 11/30/18 Norma Zhang APRN CABIN OUTFITTER [address] [facility] [place] [address] Assigned PCP 10/25/18 05/03/22 Ward Jennings MD [address] [place], [place] [address] Assigned OBGYN Provider 03/24/20 Perry Milan MD [facility] [place] [address] [place] [address] Assigned Pulmonology Provider 03/24/20 07/12/22 Cristina Giles APRN CNM [address], [facility] [address] [place] [address] Assigned OBGYN Provider 04/08/21 Jael Hess CNM [address] [place] [address] Assigned OBGYN Provider 07/29/21 Araceli Jolley CNM [address] [place] [address] Assigned OBGYN Provider 10/27/21 2 Jael Hess CNM [address] [place] [address] Assigned OBGYN Provider 11/10/21 3 Gale Braxton APRN [facility] [address] [place] [address] Assigned OBGYN Provider 11/03/21 Amie Teixeira APRN CABIN OUTFITTER [address] [place] [address] Assigned PCP 05/04/22 06/21/22 Norma Zhang APRN CABIN OUTFITTER [address] [facility] [place] [address] Assigned PCP 06/22/22 Gale Braxton APRN CNM [address] [place] [address] Assigned OBGYN Provider 07/06/22 Irineo Lebron, PhD [address] [place] [address] Assigned Behavioral Health Provider 11/23/22 Linn Macias APRN CNM [facility] [address] Assigned OBGYN Provider 02/15/2303/28 Gale Braxton APRN CNM [address] [place] [address] Assigned OBGYN Provider 03/29/23 documented as of this encounter
--- OUTSIDE RECORDS SUMMARY | 2024-03-13 22:08 | XMS_ITS | Encounter Summary ---
Author Organization [place] Address [address] [place] [address]. [place] [address] Care Team Providers Care Restaurant Line Server Name Role Phone Norma Zhang APRN, CNP Unavailable Norma Zhang APRN PHARMACEUTICAL PROCESS ENGINEER Primary Car e Provider Ward Jennings MD Unavailable Perry Milan MD Unavailable [phone] Cristina Giles COMPOSITE MECHANIC CNM Unavailab le Jael Hess CNM Unavailable [phone] Araceli Jolley CNM Unavailable Jael Hess CNM Unavailable [phone] Gale Braxton APRN CNM Unavailable Amie Teixeira APRN PHARMACEUTICAL PROCESS ENGINEER Unavailable [phone] Norma Zhang APRN PHARMACEUTICAL PROCESS ENGINEER Unavailable Gale Braxton APRN CNM Unavailable Irineo Lebron PhD Unavailable [phone] Linn Macias APRN CNM Unavailable [phone] Gale Braxton APRN CNM Unavailable Encounter Details Date Type Department Care Team (Late st Contact Info) Description 03/20/2021 MyC Medical Advice [facility] [place] [address] [place] [address] Araceli Jolley, CNM [address] [place] [address] Social History Tobacco Use Types Packs/Day Years Used Date Smoking Tobacco: Never Smokeless Tobacco: Never Alcohol Use Standard Drinks/Week Comments Not Currently 0 (1 standard drink = 0.6 oz pure alcohol) socially, couple times per month PHQ-2 Answer Date Recorded PHQ-2 Score 0 01/10/2021 [place] Depression Scale Answer Date Recorded [place] Depression Score 2 03/14/2021 Last EPDS Self Harm Result Not on file 03/14 Comments Yes Sex and Gender Information Value Date Recorded Sex Assigned at Female 06/06/2018 9:16 PM WORK ORDER DETAILER Gender Identity Female 06/06/2018 9:16 PM WORK ORDER DETAILER Sexual Orientation Straight 06/06/2018 9: 16 PM WORK ORDER DETAILER COVID-19 Exposure Response Date Recorded In the last month, have you been in contact with someone who was confirmed or suspected to have Coronavirus / COVID-19? No / Unsure 03/14/2021 8:54 AM CDT documented as of this encounter Plan of Treatment Upcoming Encounters Date Type Department Care Team (Late st Contact Info) Description 11/30/2024 7:00 AM CDT Office Visit [facility] [place] [address] [facility] [address] [place] [address] Norma Zhang APRN PHARMACEUTICAL PROCESS ENGINEER [address] [facility] [place] [address] documented as of this encounter Visit Diagnoses Not on filedocumented in this encounter Additional Health Concerns Infection Onset Date Last Indicated Resolved Time Influenza 04/27/2022 04/27/2022 05/04/2022 11:4 1 PM WORK ORDER DETAILER Assessment Noted Time PHQ-9 Depression Total Score: 2 06/28/19 16 7:53 AM WORK ORDER DETAILER documented as of this encounter Care Teams Restaurant Line Server Relationship Specialty Start Date End Date Norma Zhang APRN PHARMACEUTICAL PROCESS ENGINEER [address] [facility] [place] [address] PCP - General Nurse Practitioner 11/30/18 Norma Zhang APRN PHARMACEUTICAL PROCESS ENGINEER [address] [facility] [place] [address] Assigned PCP 10/25/18 05/03/22 Ward Jennings MD [address] [place] [address] Assigned OBGYN Provider 03/24/20 Perry Milan MD [facility] [address] [place] [address] Assigned Pulmonology Provider 03/24/20 07/12/22 Cristina Giles APR[place] CN[place] [address], [address] [place] [address] Assigned OBGYN Provider 04/08/21 Jael Hess CNM [address] [place] [address] Assigned OBGYN Provider 07/29/21 Araceli Jolley CNM [address] [place] [address] Assigned OBGYN Provider 10/27/21 2 Jael Hess CNM [address] [place] [address] Assigned OBGYN Provider 11/10/21 3 Gale Braxton APRN CNM [address] [place] [address] Assigned OBGYN Provider 11/03/21 Amie Teixeira APRN PHARMACEUTICAL PROCESS ENGINEER [address] [place] [address] Assigned PCP 05/04/22 06/21/22 Norma Zhang APRN PHARMACEUTICAL PROCESS ENGINEER [address] [facility] [place] [address] Assigned PCP 06/22/22 Gale Braxton APRN CNM [address] [place] [address] Assigned OBGYN Provider 07/06/22 Irineo Lebron, PhD [address] [place] [address] Assigned Behavioral Health Provider 11/23/22 Linn Macias APRN CNM [address] [place] [address] Assigned OBGYN Provider 02/15/2303/28 Gale Braxton APRN CNM [address] [place] [address] Assigned OBGYN Provider 03/29/23 documented as of this encounter
--- OUTSIDE RECORDS SUMMARY | 2024-03-13 22:08 | XMS_ITS | Encounter Summary ---
Author Organization [place] Address [address] [place] [address]. [place] [address] Care Team Providers Care Salesperson Recreational Vehicles Name Role Phone Norma Zhang APRN JUNIOR PROJECT MANAGER Unavailable Norma Zhang APRN JUNIOR PROJECT MANAGER Primary Car e Provider Hi Benson MD Unavailable Ward Jennings MD Unavailable Perry Milan MD Unavailable Cristina Giles PLANT HR MANAGER CNM Unavailab le Jael Hess CNM Unavailable [phone] Araceli Jolley CNM Unavailable Jael Hess CNM Unavailable [phone] Gale Braxton APRN CNM Unavailable Amie Teixeira APRN JUNIOR PROJECT MANAGER Unavailable [phone] Norma Zhang APRN JUNIOR PROJECT MANAGER Unavailable Gale Braxton APRN CNM Unavailable Irineo Lebron PhD Unavailable [phone] Linn Macias APRN CNM Unavailable [phone] Gale Braxton APRN CNM Unavailable Encounter Details Date Type Department Care Team (Late st Contact Info) Description 12/19/2019 MyC Medical Advice [facility] [address] [place] [address] Ward Jennings MD [address] [place] [address] Social History Tobacco Use Types Packs/Day Years Used Date Smoking Tobacco: Never Smokeless Tobacco: Never Alcohol Use Standard Drinks/Week Comments Yes 0 (1 standard drink = 0.6 oz pure alcohol) socially, couple times per month PHQ-2 Answer Date Recorded PHQ-2 Score 0 06/09/2018 Comments Yes Sex and Gender Information Value Date Recorded Sex Assigned at Female 06/06/2018 9:16 PM CHANGE COORDINATOR Gender Identity Female 06/06/2018 9:16 PM CHANGE COORDINATOR Sexual Orientation Straight 06/06/2018 9: 16 PM CHANGE COORDINATOR COVID-19 Exposure Response Date Recorded In the last month, have you been in contact with someone who was confirmed or suspected to have Coronavirus / COVID-19? No / Unsure 12/15/2019 12:51 PM CDT documented as of this encounter Miscellaneous Notes * Telephone Encounter - Christi Hernandez MD - 12/20/2019 12:26 PM CDT Its possible that her symptoms could be from swelling as it can stretch the skin and make her get the tingling feeling. But it is reassuring that her blood pressure is normal. I would have her continue to monitor for now while still taking blood pressure readings periodically. Obviously, other concerns for pre-eclampsia should be addressed such as headache, visual disturbances and right upper quadrant pain. Christi Hernandez MD * Telephone Encounter - Courtney Reyes RN - 12/20/2019 12:03 PM CDT Please see my chart message and advise. Courtney Cassin, RN documented in this encounter Plan of Treatment Upcoming Encounters Date Type Department Care Team (Late st Contact Info) Description 11/30/2024 7:00 AM CDT Office Visit [facility] [place] [address] [place] [address] Drive [address] [place] [address] Norma Zhang APRN JUNIOR PROJECT MANAGER [address] [place] [address] [place] [address] documented as of this encounter Visit Diagnoses Not on filedocumented in this encounter Additional Health Concerns Infection Onset Date Last Indicated Resolved Time Influenza 04/27/2022 04/27/2022 05/04/2022 11:4 1 PM CHANGE COORDINATOR Assessment Noted Time PHQ-9 Depression Total Score: 2 06/28/19 16 7:53 AM CHANGE COORDINATOR documented as of this encounter Care Teams Salesperson Recreational Vehicles Relationship Specialty Start Date End Date Norma Zhang APRN JUNIOR PROJECT MANAGER [address] [place] [address] [place] [address] PCP - General Nurse Practitioner 11/30/18 Norma Zhang APRN JUNIOR PROJECT MANAGER [address] [place] [address] [place] [address] Assigned PCP 10/25/18 05/03/22 Hi Benson MD [address] [place] [address] Assigned Surgical Provider 03/24/20 07/15/20 Ward Jennings MD [address] [place] [address] Assigned OBGYN Provider 03/24/20 Perry Milan MD [facility] [address] [place] [address] Assigned Pulmonology Provider 03/24/20 07/12/22 Cristina Giles [place] [address], [address] [place], [place] [address] Assigned OBGYN Provider 04/08/21 Jael Hess CNM [address] [place] [address] Assigned OBGYN Provider 07/29/21 Araceli Jolley CNM [address] [place], [place] [address] Assigned OBGYN Provider 10/27/21 2 Jael Hess CNM [address] [place] [address] Assigned OBGYN Provider 11/10/21 3 Gale Braxton APRN CNM [address] [place] [address] Assigned OBGYN Provider 11/03/21 Amie Teixeira APRN JUNIOR PROJECT MANAGER [address] [place] [address] Assigned PCP 05/04/22 06/21/22 Norma Zhang APRN JUNIOR PROJECT MANAGER [address] [place] [address] Assigned PCP 06/22/22 Gale Braxton APRN CNM [address] [place] [address] Assigned OBGYN Provider 07/06/22 Irineo Lebron, PhD [address] [place] [address] Assigned Behavioral Health Provider 11/23/22 Linn Macias APRN CNM [address] [place] [address] Assigned OBGYN Provider 02/15/2303/28 Gale Braxton APRN [facility] [address] [place] [address] Assigned OBGYN Provider 03/29/23 documented as of this encounter
--- OUTSIDE RECORDS SUMMARY | 2024-03-13 22:08 | XMS_ITS | Encounter Summary ---
Author Organization [place] Address [address] [place] [address]. [place] [address] Care Team Providers Care Blending Machine Operator Name Role Phone Norma Zhang APRN, CNP Unavailable Norma Zhang APRN ETHYLBENZENE CRACKING SUPERVISOR Primary Car e Provider Ward Jennings MD Unavailable Perry Milan MD Unavailable [phone] Cristina Giles SOCIAL SERVICE TECHNICIAN CNM Unavailab le Jael Hess CNM Unavailable [phone] Araceli Jolley CNM Unavailable Jael Hess CNM Unavailable [phone] Gale Braxton APRN CNM Unavailable Amie Teixeira APRN ETHYLBENZENE CRACKING SUPERVISOR Unavailable [phone] Norma Zhang APRN ETHYLBENZENE CRACKING SUPERVISOR Unavailable Gale Braxton APRN CNM Unavailable Irineo Lebron PhD Unavailable [phone] Linn Macias APRN CNM Unavailable [phone] Gale Braxton APRN CNM Unavailable Encounter Details Date Type Department Care Team (Late st Contact Info) Description 09/05/2020 Documentation Only INTERFACED REPORT Unknown, Provider Social History Tobacco Use Types Packs/Day Years Used Date Smoking Tobacco: Never Smokeless Tobacco: Never Alcohol Use Standard Drinks/Week Comments Yes 0 (1 standard drink = 0.6 oz pure alcohol) socially, couple times per month PHQ-2 Answer Date Recorded PHQ-2 Score 0 03/07/2020 [place] Depression Scale Answer Date Recorded [place] Depression Score 0 03/27/2020 Last EPDS Self Harm Result Not on file 03/27 Sex and Gender Information Value Date Recorded Sex Assigned at Female 06/06/2018 9:16 PM BACK CLOSER Gender Identity Female 06/06/2018 9:16 PM BACK CLOSER Sexual Orientation Straight 06/06/2018 9: 16 PM BACK CLOSER documented as of this encounter Plan of Treatment Upcoming Encounters Date Type Department Care Team (Late st Contact Info) Description 11/30/2024 7:00 AM CDT Office Visit [facility] [place] [address] [place] [address] Drive [address] [place] [address] Norma Zhang APRN ETHYLBENZENE CRACKING SUPERVISOR [address] [place] [address] [place] [address] documented as of this encounter Visit Diagnoses Not on filedocumented in this encounter Additional Health Concerns Infection Onset Date Last Indicated Resolved Time Influenza 04/27/2022 04/27/2022 05/04/2022 11:4 1 PM BACK CLOSER Assessment Noted Time PHQ-9 Depression Total Score: 2 06/28/19 16 7:53 AM BACK CLOSER documented as of this encounter Care Teams Blending Machine Operator Relationship Specialty Start Date End Date Norma Zhang APRN ETHYLBENZENE CRACKING SUPERVISOR [address] [place] [address] [place] [address] PCP - General Nurse Practitioner 11/30/18 Norma Zhang APRN ETHYLBENZENE CRACKING SUPERVISOR [address] [place] [address] [place] [address] Assigned PCP 10/25/18 05/03/22 Ward Jennings MD [address] [place] [address] Assigned OBGYN Provider 03/24/20 Perry Milan MD [facility] [address] [place] [address] Assigned Pulmonology Provider 03/24/20 07/12/22 Cristina Giles APRN [facility] [address], [address] [place] [address] Assigned OBGYN Provider 04/08/21 Jael Hess CNM [address] [place] [address] Assigned OBGYN Provider 07/29/21 Araceli Jolley CNM [address] [place] [address] Assigned OBGYN Provider 10/27/21 2 Jael Hess CNM [address] [place] [address] Assigned OBGYN Provider 11/10/21 3 Gale Braxton APRN [facility] [address] [place] [address] Assigned OBGYN Provider 11/03/21 Amie Teixeira APRN ETHYLBENZENE CRACKING SUPERVISOR [address] [place] [address] Assigned PCP 05/04/22 06/21/22 Norma Zhang APRN ETHYLBENZENE CRACKING SUPERVISOR [address] [facility] [place] [address] Assigned PCP 06/22/22 Glae Braxton APRN [facility] [address] [place] [address] Assigned OBGYN Provider 07/06/22 Irineo Lebron, PhD [address] [place] [address] Assigned Behavioral Health Provider 11/23/22 Linn Macias APRN CNM [address] [address] Assigned OBGYN Provider 02/15/2303/28 Gale Braxton APRN [facility] [address] [place] [address] Assigned OBGYN Provider 03/29/23 documented as of this encounter
--- OUTSIDE RECORDS SUMMARY | 2024-03-13 22:08 | XMS_ITS | Encounter Summary ---
Author Organization [place] Address [address] [place] [address]. [place] [address] Care Team Providers Care Awning Craftsperson Name Role Phone Norma Zhang APRN, CNP Unavailable Norma Zhang APRN MANAGER LINUX Primary Car e Provider Ward Jennings MD Unavailable Perry Milan MD Unavailable [phone] Cristina Giles SUPERVISOR EXTRUDING DEPARTMENT CNM Unavailab le Jael Hess CNM Unavailable [phone] Araceli Jolley CNM Unavailable Jael Hess CNM Unavailable [phone] Gale Braxton APRN CNM Unavailable Amie Teixeira APRN MANAGER LINUX Unavailable [phone] Norma Zhang APRN MANAGER LINUX Unavailable Gale Braxton APRN CNM Unavailable Irineo Lebron PhD Unavailable [phone] Linn Macias APRN CNM Unavailable [phone] Gale Braxton APRN CNM Unavailable Encounter Details Date Type Department Care Team (Late st Contact Info) Description 11/06/2020 [facility] [address] [place] [address] [address] [place] [phone] Jailyn Koenig MA Social History Tobacco Use Types Packs/Day Years Used Date Smoking Tobacco: Never Smokeless Tobacco: Never Alcohol Use Standard Drinks/Week Comments Yes 0 (1 standard drink = 0.6 oz pure alcohol) socially, couple times per month PHQ-2 Answer Date Recorded PHQ-2 Score 0 03/07/2020 [place] Depression Scale Answer Date Recorded [place] Depression Score 0 03/27/2020 Last EPDS Self Harm Result Not on file 03/27 Sex and Gender Information Value Date Recorded Sex Assigned at Female 06/06/2018 9:16 PM WATER PUMP INSTALLER Gender Identity Female 06/06/2018 9:16 PM WATER PUMP INSTALLER Sexual Orientation Straight 06/06/2018 9: 16 PM WATER PUMP INSTALLER documented as of this encounter Plan of Treatment Upcoming Encounters Date Type Department Care Team (Late st Contact Info) Description 11/30/2024 7:00 AM CDT [facility] [address] [place] [address] [address] [place] [phone] Norma Zhang APRN MANAGER LINUX [address] [place] [address] [place] [address] documented as of this encounter Visit Diagnoses Not on filedocumented in this encounter Additional Health Concerns Infection Onset Date Last Indicated Resolved Time Influenza 04/27/2022 04/27/2022 05/04/2022 11:4 1 PM WATER PUMP INSTALLER Assessment Noted Time PHQ-9 Depression Total Score: 2 06/28/19 16 7:53 AM WATER PUMP INSTALLER documented as of this encounter Care Teams Awning Craftsperson Relationship Specialty Start Date End Date Norma Zhang APRN MANAGER LINUX [address] [place] [address] [place] [address] PCP - General Nurse Practitioner 11/30/18 Norma Zhang APRN MANAGER LINUX [address] [place] [address] [place] [address] Assigned PCP 10/25/18 05/03/22 Ward Jennings MD [address] [place] [address] Assigned OBGYN Provider 03/24/20 Perry Milan MD [facility] [place] [address] [place] [address] Assigned Pulmonology Provider 03/24/20 07/12/22 Cristina Giles APRN CNM [address] [place] [address] Assigned OBGYN Provider 04/08/21 Jael Hess CNM [address] [place] [address] Assigned OBGYN Provider 07/29/21 Araceli Jolley CNM [address] [place] [address] Assigned OBGYN Provider 10/27/21 2 Jael Hess CNM [address] [place] [address] Assigned OBGYN Provider 11/10/21 3 Gale Braxton APRN [facility] [address] [place] [address] Assigned OBGYN Provider 11/03/21 Amie Teixeira APRN MANAGER LINUX [address] [place] [address] Assigned PCP 05/04/22 06/21/22 Norma Zhang APRN MANAGER LINUX [address] [facility] [place] [address] Assigned PCP 06/22/22 Gale Braxton APRN CN [address] [place] [address] Assigned OBGYN Provider 07/06/22 Irineo Lebron, PhD [address] [place] [address] Assigned Behavioral Health Provider 11/23/22 Linn Macias APRN CNM [facility] [address] [address] Assigned OBGYN Provider 02/15/2303/28 Gale Braxton APRN CN [address] [place] [address] Assigned OBGYN Provider 03/29/23 documented as of this encounter
--- OUTSIDE RECORDS SUMMARY | 2024-03-13 22:08 | XMS_ITS | Encounter Summary ---
Author Organization [place] Address [address] [place] [address]. [place] [address] Care Team Providers Care Manager Validation Name Role Phone Norma Zhang APRN DRAG SAWYER Unavailable Norma Zhang APRN DRAG SAWYER Primary Car e Provider Hi Benson MD Unavailable Ward Jennings MD Unavailable Perry Milan MD Unavailable Cristina Giles QUALITY ASSURANCE CNM Unavailab le Jael Hess CNM Unavailable [phone] Araceli Jolley CNM Unavailable Jael Hess CNM Unavailable [phone] Gale Braxton APRN CNM Unavailable Amie Teixeira APRN DRAG SAWYER Unavailable [phone] Norma Zhang APRN DRAG SAWYER Unavailable Gale Braxton APRN CNM Unavailable Irineo Lebron PhD Unavailable [phone] Linn Macias APRN CNM Unavailable [phone] Weas, Gale QUALITY ASSURANCE CNM Unavailable Encounter Details Date Type Department Care Team (Late st Contact Info) Description 09/06/2019 MyC Medical Advice [facility] [address] [place] [phone] Kiera Steinberg MD [address] [place] [address] Social History Tobacco Use Types Packs/Day Years Used Date Smoking Tobacco: Never Smokeless Tobacco: Never Alcohol Use Standard Drinks/Week Comments Yes 0 (1 standard drink = 0.6 oz pure alcohol) socially, couple times per month PHQ-2 Answer Date Recorded PHQ-2 Score 0 06/09/2018 Comments Yes Sex and Gender Information Value Date Recorded Sex Assigned at Female 06/06/2018 9:16 PM PRINT COLOR MATCHER Gender Identity Female 06/06/2018 9:16 PM PRINT COLOR MATCHER Sexual Orientation Straight 06/06/2018 9: 16 PM PRINT COLOR MATCHER COVID-19 Exposure Response Date Recorded In the last month, have you been in contact with someone who was confirmed or suspected to have Coronavirus / COVID-19? No / Unsure 08/13/2019 5:37 PM CDT documented as of this encounter Miscellaneous Notes * Telephone Encounter - Meli Campos RN - 09/07/2019 8:14 AM CDT Routed to Dr. Delgadillo as he did the virtual visit on 09/02/19. Meli Parson, RN documented in this encounter Plan of Treatment Upcoming Encounters Date Type Department Care Team (Late st Contact Info) Description 11/30/2024 7:00 AM CDT Office Visit [facility] [place] [address] [facility] [place] [phone] Norma Zhang APRN [facility] [address] [facility] [place] [id number] documented as of this encounter Visit Diagnoses Not on filedocumented in this encounter Additional Health Concerns Infection Onset Date Last Indicated Resolved Time Influenza 04/27/2022 04/27/2022 05/04/2022 11:4 1 PM PRINT COLOR MATCHER Assessment Noted Time PHQ-9 Depression Total Score: 2 06/28/19 16 7:53 AM PRINT COLOR MATCHER documented as of this encounter Care Teams Manager Validation Relationship Specialty Start Date End Date Norma Zhang APRN DRAG SAWYER [address] [place] [address] [place] [address] PCP - General Nurse Practitioner 11/30/18 Norma Zhang APRN DRAG SAWYER [address] [place] [address] [place] [address] Assigned PCP 10/25/18 05/03/22 Hi Benson MD [address] [place] [address] Assigned Surgical Provider 03/24/20 07/15/20 Ward Jennings MD [address] [place] [address] Assigned OBGYN Provider 03/24/20 Perry Milan MD [facility] [address] [place] [address] Assigned Pulmonology Provider 03/24/20 07/12/22 Cristina Giles APRN CNM [address] [address] Assigned OBGYN Provider 04/08/21 Jael Hess CNM [address] [place] [address] Assigned OBGYN Provider 07/29/21 Araceli Jolley, LORENZOM [address] [place] [address] Assigned OBGYN Provider 10/27/21 2 Jael Hess CNM [address] [place] [address] Assigned OBGYN Provider 11/10/21 3 Gale Braxton APRN CNM [address] [place] [address] Assigned OBGYN Provider 11/03/21 Amie Teixeira APRN DRAG SAWYER [address] [place] [address] Assigned PCP 05/04/22 06/21/22 Norma Zhang APRN DRAG SAWYER [address] [place] [address] Assigned PCP 06/22/22 Gale Braxton APRN CNM [address] [place] [address] Assigned OBGYN Provider 07/06/22 Irineo Lebron, PhD [address] [place] [address] Assigned Behavioral Health Provider 11/23/22 Linn Macias APRN CNM [facility] [address] [address] Assigned OBGYN Provider 02/15/2303/28 Gale Braxton APRN CNM [address] [place] [address] Assigned OBGYN Provider 03/29/23 documented as of this encounter
--- OUTSIDE RECORDS SUMMARY | 2024-03-13 22:08 | XMS_ITS | Encounter Summary ---
Author Organization [place] Address [address] [place] [address]. [place] [address] Care Team Providers Care Snowboard Designer Name Role Phone Norma Zhang APRN HAND WOOD SANDER Unavailable Norma Zhang APRN HAND WOOD SANDER Primary Car e Provider Hi Benson MD Unavailable Ward Jennings MD Unavailable Perry Milan MD Unavailable Cristina Giles GANG RIPSAW OPERATOR CNM Unavailab le Jael Hess CNM Unavailable Araceli Jolley CNM Unavailable Jael Hess CNM Unavailable [phone] Gale Braxton APRN CNM Unavailable Amie Teixeira APRN HAND WOOD SANDER Unavailable [phone] Norma Zhang APRN HAND WOOD SANDER Unavailable Gale Braxton APRN CNM Unavailable Irineo Lebron PhD Unavailable [phone] Linn Macias APRN CNM Unavailable [phone] Gale Braxton APRN CNM Unavailable Encounter Details Date Type Department Care Team (Late st Contact Info) Description 03/07/2020 MyC Medical Advice [address] [place] [phone] Luz Devi, HAT FINISHING MATERIALS PREPARER Social History Tobacco Use Types Packs/Day Years Used Date Smoking Tobacco: Never Smokeless Tobacco: Never Alcohol Use Standard Drinks/Week Comments Yes 0 (1 standard drink = 0.6 oz pure alcohol) socially, couple times per month PHQ-2 Answer Date Recorded PHQ-2 Score 0 03/07/2020 [place] Depression Scale Answer Date Recorded [place] Depression Score 2 02/28/2020 Last EPDS Self Harm Result Not on file 02/27 Sex and Gender Information Value Date Recorded Sex Assigned at Female 06/06/2018 9:16 PM AUTOMATION CONTROL INTEGRATOR Gender Identity Female 06/06/2018 9:16 PM AUTOMATION CONTROL INTEGRATOR Sexual Orientation Straight 06/06/2018 9: 16 PM AUTOMATION CONTROL INTEGRATOR COVID-19 Exposure Response Date Recorded In the last month, have you been in contact with someone who was confirmed or suspected to have Coronavirus / COVID-19? No / Unsure 02/28/2020 8:31 AM CDT documented as of this encounter Plan of Treatment Upcoming Encounters Date Type Department Care Team (Late st Contact Info) Description 11/30/2024 7:00 AM CDT Office Visit [facility] [place] [address] [place] [address] [address] [place] [phone] Norma Zhang APRN HAND WOOD SANDER [address] [place] [address] [place] [address] documented as of this encounter Visit Diagnoses Not on filedocumented in this encounter Additional Health Concerns Infection Onset Date Last Indicated Resolved Time Influenza 04/27/2022 04/27/2022 05/04/2022 11:4 1 PM AUTOMATION CONTROL INTEGRATOR Assessment Noted Time PHQ-9 Depression Total Score: 2 06/28/19 16 7:53 AM AUTOMATION CONTROL INTEGRATOR documented as of this encounter Care Teams Snowboard Designer Relationship Specialty Start Date End Date Norma Zhang APRN HAND WOOD SANDER [address] [place] [address] [place] [address] PCP - General Nurse Practitioner 11/30/18 Norma Zhang APRN HAND WOOD SANDER [address] [facility] [place] [address] Assigned PCP 10/25/18 05/03/22 Hi Benson MD [address] [place] [address] Assigned Surgical Provider 03/24/20 07/15/20 Ward Jennings MD [address] [place] [address] Assigned OBGYN Provider 03/24/20 Perry Milan MD [facility] [address] [place] [address] Assigned Pulmonology Provider 03/24/20 07/12/22 Cristina Giles APRN CNM [address] [place] [place] [address] Assigned OBGYN Provider 04/08/21 Jael Hess CNM [address] [place], [place] [address] Assigned OBGYN Provider 07/29/21 Araceli Jolley CNM [address] [facility] [address] [place], [place] [address] Assigned OBGYN Provider 10/27/21 2 Jael Hess CNM [address] [place] [address] Assigned OBGYN Provider 11/10/21 3 Gale Braxton APRN CNM [address] [place] [address] Assigned OBGYN Provider 11/03/21 Amie Teixeira APRN HAND WOOD SANDER [address] [place] [address] Assigned PCP 05/04/22 06/21/22 Norma Zhang APRN HAND WOOD SANDER [facility] [facility] [place] [address] Assigned PCP 06/22/22 Gale Braxton APRN CNM [address] [place] [address] Assigned OBGYN Provider 07/06/22 Irineo Lebron, PhD [address] [place] [address] Assigned Behavioral Health Provider 11/23/22 Linn Macias APRN CNM [address] [place] [address] Assigned OBGYN Provider 02/15/2303/28 Gale Braxton APRN CNM [address] [place] [address] Assigned OBGYN Provider 03/29/23 documented as of this encounter
--- OUTSIDE RECORDS SUMMARY | 2024-03-13 22:08 | XMS_ITS | Encounter Summary ---
Author Organization [place] Address [address] [place] [address]. [place] [address] Care Team Providers Care Laundry Bag Punch Operator Name Role Phone Norma Zhang APRN LOBSTERMAN Unavailable Norma Zhang APRN LOBSTERMAN Primary Car e Provider Hi Benson MD Unavailable Ward Jennings MD Unavailable Perry Milan MD Unavailable [phone] Cristina Giles SFDC SOLUTION ARCHITECT CNM Unavailab le Jael Hess CNM Unavailable [phone] Araceli Jolley CNM Unavailable Jael Hess CNM Unavailable [phone] Gale Braxton APRN CNM Unavailable Amie Teixeira APRN LOBSTERMAN Unavailable [phone] Norma Zhang APRN LOBSTERMAN Unavailable Gale Braxton APRN CNM Unavailable Irineo Lebron PhD Unavailable [phone] Linn Macias APRN CNM Unavailable [phone] Gale Braxton APRN CNM Unavailable Encounter Details Date Type Department Care Team (Late st Contact Info) Description 07/10/2020 MyC Medical Advice [address] [place] [phone] Jailyn Koenig MA Social History Tobacco Use Types Packs/Day Years Used Date Smoking Tobacco: Never Smokeless Tobacco: Never Alcohol Use Standard Drinks/Week Comments Yes 0 (1 standard drink = 0.6 oz pure alcohol) socially, couple times per month PHQ-2 Answer Date Recorded PHQ-2 Score 0 03/07/2020 [place] Depression Scale Answer Date Recorded [place] Depression Score 0 03/27/2020 Last EPDS Self Harm Result Not on file 03/27 Sex and Gender Information Value Date Recorded Sex Assigned at Female 06/06/2018 9:16 PM SAS SQL DEVELOPER Gender Identity Female 06/06/2018 9:16 PM SAS SQL DEVELOPER Sexual Orientation Straight 06/06/2018 9: 16 PM SAS SQL DEVELOPER COVID-19 Exposure Response Date Recorded In the last month, have you been in contact with someone who was confirmed or suspected to have Coronavirus / COVID-19? No / Unsure 06/15/2020 11:22 AM SAS SQL DEVELOPER documented as of this encounter Plan of Treatment Upcoming Encounters Date Type Department Care Team (Late st Contact Info) Description 11/30/2024 7:00 AM CDT [facility] [address] [place] [address] [address] [place] [phone] Norma Zhang APRN LOBSTERMAN [address] [place] [address] [place] [address] documented as of this encounter Visit Diagnoses Not on filedocumented in this encounter Additional Health Concerns Infection Onset Date Last Indicated Resolved Time Influenza 04/27/2022 04/27/2022 05/04/2022 11:4 1 PM SAS SQL DEVELOPER Assessment Noted Time PHQ-9 Depression Total Score: 2 06/28/19 16 7:53 AM SAS SQL DEVELOPER documented as of this encounter Care Teams Laundry Bag Punch Operator Relationship Specialty Start Date End Date Norma Zhang APRN LOBSTERMAN [address] [place] [address] [place] [address] PCP - General Nurse Practitioner 11/30/18 Norma Zhang APRN LOBSTERMAN [address] [facility] [place] [address] Assigned PCP 10/25/18 05/03/22 Hi Benson MD [address] [place] [address] Assigned Surgical Provider 03/24/20 07/15/20 Ward Jennings MD [address] [place] [address] Assigned OBGYN Provider 03/24/20 Perry Milan MD [facility] [address] [place] [address] Assigned Pulmonology Provider 03/24/20 07/12/22 Cristina Giles APRN CNM [address] [place] [address] Assigned OBGYN Provider 04/08/21 Jael Hess CNM [address] [place] [address] Assigned OBGYN Provider 07/29/21 Araceli Jolley CNM [address] [place], [place] [address] Assigned OBGYN Provider 10/27/21 2 Jael Hess CNM [address] [place] [address] Assigned OBGYN Provider 11/10/21 3 Gale Braxton APRN CNM [address] [place] [address] Assigned OBGYN Provider 11/03/21 Amie Teixeira APRN LOBSTERMAN [address] [place] [address] Assigned PCP 05/04/22 06/21/22 Norma Zhang APRN LOB[facility] [facility] [place] [address] Assigned PCP 06/22/22 Gale Braxton APRN CNM [address] [place] [address] Assigned OBGYN Provider 07/06/22 Irineo Lebron, PhD [address] [place] [address] Assigned Behavioral Health Provider 11/23/22 Linn Macias APRN CNM [address] [place] [address] Assigned OBGYN Provider 02/15/2303/28 Gale Braxton APRN CNM [address] [place] [address] Assigned OBGYN Provider 03/29/23 documented as of this encounter
--- OUTSIDE RECORDS SUMMARY | 2024-03-13 22:08 | XMS_ITS | Encounter Summary ---
Author Organization [place] Address [address] [place] [address]. [place] [address] Care Team Providers Care Medical Stenographer Name Role Phone Norma Zhang APRN LIVESTOCK CARETAKER Unavailable Norma Zhang APRN LIVESTOCK CARETAKER Primary Car e Provider Hi Benson MD Unavailable Ward Jennings MD Unavailable Perry Milan MD Unavailable Cristina Giles SUPERVISOR SIGN SHOP CNM Unavailab le Jael Hess CNM Unavailable [phone] Araceli Jolley CNM Unavailable Jael Hess CNM Unavailable [phone] Gale Braxton APRN CNM Unavailable Amie Teixeira APRN LIVESTOCK CARETAKER Unavailable [phone] Norma Zhang APRN LIVESTOCK CARETAKER Unavailable Gale Braxton APRN CNM Unavailable Irineo Lebron PhD Unavailable [phone] Linn Macias APRN CNM Unavailable [phone] Gale Braxton APRN CNM Unavailable Encounter Details Date Type Department Care Team (Late st Contact Info) Description 08/21/2019 MyC Medical Advice [facility] [address] [place] [phone] Kiera Steinberg MD [address] [place] [address] Social History Tobacco Use Types Packs/Day Years Used Date Smoking Tobacco: Never Smokeless Tobacco: Never Alcohol Use Standard Drinks/Week Comments Yes 0 (1 standard drink = 0.6 oz pure alcohol) socially, couple times per month PHQ-2 Answer Date Recorded PHQ-2 Score 0 06/09/2018 Comments Yes Sex and Gender Information Value Date Recorded Sex Assigned at Female 06/06/2018 9:16 PM SPLICING TECHNICIAN Gender Identity Female 06/06/2018 9:16 PM SPLICING TECHNICIAN Sexual Orientation Straight 06/06/2018 9: 16 PM SPLICING TECHNICIAN COVID-19 Exposure Response Date Recorded In the [...] Visit [facility] [place] [address] [place] [address] [address] [place] [phone] Norma Zhang APRN LIVESTOCK CARETAKER [address] [place] [address] [place] [address] documented as of this encounter Visit Diagnoses Not on filedocumented in this encounter Additional Health Concerns Infection Onset Date Last Indicated Resolved Time Influenza 04/27/2022 04/27/2022 05/04/2022 11:4 1 PM SPLICING TECHNICIAN Assessment Noted Time PHQ-9 Depression Total Score: 2 06/28/19 16 7:53 AM SPLICING TECHNICIAN documented as of this encounter Care Teams Medical Stenographer Relationship Specialty Start Date End Date Norma Zhang APRN LIVESTOCK CARETAKER [address] [facility] [place] [address] PCP - General Nurse Practitioner 11/30/18 Norma Zhang APRN LIVESTOCK CARETAKER [address] [facility] [place] [address] Assigned PCP 10/25/18 05/03/22 Hi Benson MD [address] [place] [address] Assigned Surgical Provider 03/24/20 07/15/20 Ward Jennings MD [address] [place] [address] Assigned OBGYN Provider 03/24/20 Perry Milan MD [facility] [address] [place] [address] Assigned Pulmonology Provider 03/24/20 07/12/22 Cristina Giles APRN CNM [address] [place] [address] Assigned OBGYN Provider 04/08/21 Jael Hess CNM [address] [place] [address] Assigned OBGYN Provider 07/29/21 Araceli Jolley CNM [address] [place], [place] [address] Assigned OBGYN Provider 10/27/21 2 Jael Hess CNM [address] [place] [address] Assigned OBGYN Provider 11/10/21 3 Gale Braxton APRN CNM [address] [place] [address] Assigned OBGYN Provider 11/03/21 Amie Teixeira APRN LIVESTOCK CARETAKER [address] [place] [address] Assigned PCP 05/04/22 06/21/22 Norma Zhang APRN LIVESTOCK CARETAKER [address] [facility] [place] [address] Assigned PCP 06/22/22 Gale Braxton APRN CNM [address] [place] [address] Assigned OBGYN Provider 07/06/22 Irineo Lebron, PhD [address] [place] [address] Assigned Behavioral Health Provider 11/23/22 Linn Macias APRN CNM [address] [place] [address] Assigned OBGYN Provider 02/15/2303/28 Gale Braxton APRN CNM [address] [facility] [address] Assigned OBGYN Provider 03/29/23 documented as of this encounter
--- OUTSIDE RECORDS SUMMARY | 2024-03-13 22:08 | XMS_ITS | Encounter Summary ---
Author Organization [place] Address [address] [place] [address]. [place] [address] Care Team Providers Care Guillotine Operator Name Role Phone Norma Zhang APRN FORM TAMPING MACHINE OPERATOR Unavailable Norma Zhang APRN FORM TAMPING MACHINE OPERATOR Primary Car e Provider Hi Benson MD Unavailable Ward Jennings MD Unavailable Perry Milan MD Unavailable Cristina Giles DIALYSIS REGISTERED NURSE CNM Unavailab le Jael Hess CNM Unavailable [phone] Araceli Jolley CNM Unavailable Jael Hess CNM Unavailable [phone] Gale Braxton APRN CNM Unavailable Amie Teixeira APRN FORM TAMPING MACHINE OPERATOR Unavailable [phone] Norma Zhang APRN FORM TAMPING MACHINE OPERATOR Unavailable Gale Braxton APRN CNM Unavailable Irineo Lebron PhD Unavailable [phone] Linn Macias APRN CNM Unavailable [phone] Gale Braxton APRN CNM Unavailable Encounter Details Date Type Department Care Team (Late st Contact Info) Description 05/23/2020 MyC Medical Advice [facility] Women's [place] [address] [place] [phone] ChanCristina Nakia Yu APRN CNM [address] [place] [address] Social History Tobacco Use Types Packs/Day Years Used Date Smoking Tobacco: Never Smokeless Tobacco: Never Alcohol Use Standard Drinks/Week Comments Yes 0 (1 standard drink = 0.6 oz pure alcohol) socially, couple times per month PHQ-2 Answer Date Recorded PHQ-2 Score 0 03/07/2020 [place] Depression Scale Answer Date Recorded [place] Depression Score 0 03/27/2020 Last EPDS Self Harm Result Not on file 03/27 Sex and Gender Information Value Date Recorded Sex Assigned at Female 06/06/2018 9:16 PM DEALER RELATIONSHIP MANAGER Gender Identity Female 06/06/2018 9:16 PM DEALER RELATIONSHIP MANAGER Sexual Orientation Straight 06/06/2018 9: 16 PM DEALER RELATIONSHIP MANAGER documented as of this encounter Plan of Treatment Upcoming Encounters Date Type Department Care Team (Late st Contact Info) Description 11/30/2024 7:00 AM CDT Office Visit [facility] [place] [address] [place] [address] [address] [place] [phone] Norma Zhang APRN FORM TAMPING MACHINE OPERATOR [address] [place] [address] [place] [address] documented as of this encounter Visit Diagnoses Not on filedocumented in this encounter Additional Health Concerns Infection Onset Date Last Indicated Resolved Time Influenza 04/27/2022 04/27/2022 05/04/2022 11:4 1 PM DEALER RELATIONSHIP MANAGER Assessment Noted Time PHQ-9 Depression Total Score: 2 06/28/19 16 7:53 AM DEALER RELATIONSHIP MANAGER documented as of this encounter Care Teams Guillotine Operator Relationship Specialty Start Date End Date Norma Zhang APRN FORM TAMPING MACHINE OPERATOR [address] [place] [address] [place] [address] PCP - General Nurse Practitioner 11/30/18 Norma Zhang APRN FORM TAMPING MACHINE OPERATOR [address] [facility] [place] [address] Assigned PCP 10/25/18 05/03/22 Hi Benson MD [address] [place] [address] Assigned Surgical Provider 03/24/20 07/15/20 Ward Jennings MD [address] [place] [address] Assigned OBGYN Provider 03/24/20 Perry Milan MD [facility] [address] [place] [address] Assigned Pulmonology Provider 03/24/20 07/12/22 Cristina Giles APRN CNM [address] [place], [facility] [address] [place] [address] Assigned OBGYN Provider 04/08/21 Jael Hess CNM [address] [place] [address] Assigned OBGYN Provider 07/29/21 Araceli Jolley CNM [address] [facility] [address] [place] [address] Assigned OBGYN Provider 10/27/21 2 Jael Hess CNM [address] [place] [address] Assigned OBGYN Provider 11/10/21 3 Gale Braxton APRN CNM [address] [place] [address] Assigned OBGYN Provider 11/03/21 Amie Teixeira APRN FORM TAMPING MACHINE OPERATOR [address] [place] [address] Assigned PCP 05/04/22 06/21/22 Norma Zhang APRN FORM TAMPING MACHINE OPERATOR [address] [facility] [place] [address] Assigned PCP 06/22/22 Gale Braxton APRN CNM [address] [place] [address] Assigned OBGYN Provider 07/06/22 Irineo Lebron, PhD [address] [place] [address] Assigned Behavioral Health Provider 11/23/22 Linn Macias APRN CNM [address] [place] [address] Assigned OBGYN Provider 02/15/2303/28 Gale Braxton APRN CNM [address] [place] [address] Assigned OBGYN Provider 03/29/23 documented as of this encounter
--- OUTSIDE RECORDS SUMMARY | 2024-03-13 22:08 | XMS_ITS | Encounter Summary ---
Author Organization [place] Address [address] [place] [address]. [place] [address] Care Team Providers Care Oracle Identity Management Consultant Name Role Phone Norma Zhang APRN DIRECTOR OF HOME CARE HOSPICE Unavailable Norma Zhang APRN DIRECTOR OF HOME CARE HOSPICE Primary Car e Provider Hi Benson MD Unavailable Ward Jennings MD Unavailable Perry Milan MD Unavailable Cristina Giles HR BUSINESS PARTNER CNM Unavailab le Jael Hess CNM Unavailable [phone] Araceli Jolley CNM Unavailable Jael Hess CNM Unavailable [phone] Gale Braxton APRN CNM Unavailable Amie Teixeira APRN DIRECTOR OF HOME CARE HOSPICE Unavailable [phone] Norma Zhang APRN DIRECTOR OF HOME CARE HOSPICE Unavailable Gale Braxton APRN CNM Unavailable Irineo Lebron PhD Unavailable [phone] Linn Macias APRN CNM Unavailable [phone] Gale Braxton APRN CNM Unavailable Encounter Details Date Type Department Care Team (Late st Contact Info) Description 06/15/2020 MyC Medical Advice [facility] [address] [place] [address] Jael Hess, [facility] [address] [place] [address] Social History Tobacco Use Types Packs/Day Years Used Date Smoking Tobacco: Never Smokeless Tobacco: Never Alcohol Use Standard Drinks/Week Comments Yes 0 (1 standard drink = 0.6 oz pure alcohol) socially, couple times per month PHQ-2 Answer Date Recorded PHQ-2 Score 0 03/07/2020 Rosie Depression Scale Answer Date Recorded Rosie Depression Score 0 03/27/2020 Last EPDS Self Harm Result Not on file 03/27 Sex and Gender Information Value Date Recorded Sex Assigned at Female 06/06/2018 9:16 PM WARRANTY MANAGER Gender Identity Female 06/06/2018 9:16 PM WARRANTY MANAGER Sexual Orientation Straight 06/06/2018 9: 16 PM WARRANTY MANAGER COVID-19 Exposure Response Date Recorded In the last month, have you been in contact with someone who was confirmed or suspected to have Coronavirus / COVID-19? No / Unsure 06/15/2020 11:22 AM WARRANTY MANAGER documented as of this encounter Plan of Treatment Upcoming Encounters Date Type Department Care Team (Late st Contact Info) Description 11/30/2024 7:00 AM CDT Office Visit [facility] [address] [place] [phone] Norma Zhang APRN [facility] [address] [place] [address] [place] [address] documented as of this encounter Visit Diagnoses Not on filedocumented in this encounter Additional Health Concerns Infection Onset Date Last Indicated Resolved Time Influenza 04/27/2022 04/27/2022 05/04/2022 11:4 1 PM WARRANTY MANAGER Assessment Noted Time PHQ-9 Depression Total Score: 2 06/28/19 16 7:53 AM WARRANTY MANAGER documented as of this encounter Care Teams Oracle Identity Management Consultant Relationship Specialty Start Date End Date Norma Zhang APRN DIRECTOR OF HOME CARE HOSPICE [address] [facility] [place] [address] PCP - General Nurse Practitioner 11/30/18 Norma Zhang APRN DIRECTOR OF HOME CARE HOSPICE [address] [facility] [place] [address] Assigned PCP 10/25/18 05/03/22 Hi Benson MD [address] [place] [address] Assigned Surgical Provider 03/24/20 07/15/20 Ward Jennings MD [address] [place] [address] Assigned OBGYN Provider 03/24/20 Perry Milan MD [facility] [address] [place] [address] Assigned Pulmonology Provider 03/24/20 07/12/22 Cristina Giles APRN CNM [address] [address] Assigned OBGYN Provider 04/08/21 Jael Hess CNM [address] [place] [address] Assigned OBGYN Provider 07/29/21 Araceli Jolley CNM [address] [place] [address] Assigned OBGYN Provider 10/27/21 2 Jael Hess CNM [address] [place] [address] Assigned OBGYN Provider 11/10/21 3 Gale Braxton APRN CNM [address] [place] [address] Assigned OBGYN Provider 11/03/21 Amie Teixeira APRN [facility] [address] [place] [address] Assigned PCP 05/04/22 06/21/22 Norma Zhang APRN DIRECTOR OF HOME CARE HOSPICE [address] [facility] [place] [address] Assigned PCP 06/22/22 Gale Braxton APRN CNM [address] [place] [address] Assigned OBGYN Provider 07/06/22 Irineo Lebron, PhD [address] [place] [address] Assigned Behavioral Health Provider 11/23/22 Linn Macias APRN CNM [facility] [address] [address] Assigned OBGYN Provider 02/15/2303/28 Gale Braxton APRN [facility] [address] [place] [address] Assigned OBGYN Provider 03/29/23 documented as of this encounter
--- OUTSIDE RECORDS SUMMARY | 2024-03-13 22:08 | XMS_ITS | Encounter Summary ---
Author Organization [facility] Address [address] [place] [address]. [place] [address] Care Team Providers Care Color Dipper Name Role Phone Norma Zhang APRN, CNP Unavailable Norma Zhang APRN SPINE SPECIALIST Primary Car e Provider Ward Jennings MD Unavailable Perry Milan MD Unavailable [phone] Cristina Giles DRIER ATTENDANT CNM Unavailab le Jael Hess CNM Unavailable [phone] Araceli Jolley CNM Unavailable Jael Hess CNM Unavailable [phone] Gale Braxton APRN CNM Unavailable Amie Teixeira APRN SPINE SPECIALIST Unavailable [phone] Norma Zhang APRN SPINE SPECIALIST Unavailable Gale Braxton APRN CNM Unavailable Irineo Lebron PhD Unavailable [phone] Linn Macias APRN CNM Unavailable [phone] Gale Braxton APRN CNM Unavailable Encounter Details Date Type Department Care Team (Late st Contact Info) Description 02/26/2021 MyC Medical Advice [facility] [place] [address] [place] [phone] Meli Campos, RN Social History Tobacco Use Types Packs/Day Years Used Date Smoking Tobacco: Never Smokeless Tobacco: Never Alcohol Use Standard Drinks/Week Comments Yes 0 (1 standard drink = 0.6 oz pure alcohol) socially, couple times per month PHQ-2 Answer Date Recorded PHQ-2 Score 0 01/10/2021 [place] Depression Scale Answer Date Recorded [place] Depression Score 0 03/27/2020 Last EPDS Self Harm Result Not on file 03/27 Comments Yes Sex and Gender Information Value Date Recorded Sex Assigned at Female 06/06/2018 9:16 PM DIRECTOR OF DISTRICT OFFICE Gender Identity Female 06/06/2018 9:16 PM DIRECTOR OF DISTRICT OFFICE Sexual Orientation Straight 06/06/2018 9: 16 PM DIRECTOR OF DISTRICT OFFICE COVID-19 Exposure Response Date Recorded In the last month, have you been in contact with someone who was confirmed or suspected to have Coronavirus / COVID-19? Unable to assess 03/01/2021 8:31 AM CDT documented as of this encounter Plan of Treatment Upcoming Encounters Date Type Department Care Team (Late st Contact Info) Description 11/30/2024 7:00 AM CDT Office Visit [facility] [place] [address] [place] [address] Drive [address] [place] [address] Norma Zhang APRN SPINE SPECIALIST [address] [place] [address] [place] [address] documented as of this encounter Visit Diagnoses Not on filedocumented in this encounter Additional Health Concerns Infection Onset Date Last Indicated Resolved Time Influenza 04/27/2022 04/27/2022 05/04/2022 11:4 1 PM DIRECTOR OF DISTRICT OFFICE Assessment Noted Time PHQ-9 Depression Total Score: 2 06/28/19 16 7:53 AM DIRECTOR OF DISTRICT OFFICE documented as of this encounter Care Teams Color Dipper Relationship Specialty Start Date End Date Norma Zhang APRN SPINE SPECIALIST [address] [place] [address] [place] [address] PCP - General Nurse Practitioner 11/30/18 Norma Zhang APRN SPINE SPECIALIST [address] [facility] [place] [id number] Assigned PCP 10/25/18 05/03/22 Ward Jennings MD [address] [place] [address] Assigned OBGYN Provider 03/24/20 Perry Milan MD [facility] [address] [place] [address] Assigned Pulmonology Provider 03/24/20 07/12/22 Cristina Giles APRN [facility] [address] [place], [place] [address] Assigned OBGYN Provider 04/08/21 Jael Hess CNM [address] [place] [address] Assigned OBGYN Provider 07/29/21 Araceli Jolley CNM [address] [place], [place] [address] Assigned OBGYN Provider 10/27/21 2 Jael Hess CNM [address] [place] [address] Assigned OBGYN Provider 11/10/21 3 Gale Braxton APRN CNM [address] [place] [address] Assigned OBGYN Provider 11/03/21 Amie Teixeira APRN SPINE SPECIALIST [address] [place] [address] Assigned PCP 05/04/22 06/21/22 Norma Zhang APRN SPINE SPECIALIST [address] [facility] [place] [address] Assigned PCP 06/22/22 Gale Braxton APRN CNM [address] [place] [address] Assigned OBGYN Provider 07/06/22 Irineo Lebron, PhD [address] [place] [address] Assigned Behavioral Health Provider 11/23/22 Linn Macias APRN CNM [address] [place] [address] Assigned OBGYN Provider 02/15/2303/28 Gale Barxton APRN [facility] [address] [place] [address] Assigned OBGYN Provider 03/29/23 documented as of this encounter
--- OUTSIDE RECORDS SUMMARY | 2024-03-13 22:08 | XMS_ITS | Encounter Summary ---
Author Organization [facility] Address [address] [place] [address]. [place] [address] Care Team Providers Care Implementation Architect Name Role Phone Norma Zhang APRN, CNP Unavailable Norma Zhang APRN LUSTER REPAIRER Primary Car e Provider Ward Jennings MD Unavailable Perry Milan MD Unavailable [phone] Cristina Giles IT AUDIT MANAGER CNM Unavailab le Jael Hess CNM Unavailable [phone] Araceli Jolley CNM Unavailable Jael Hess CNM Unavailable [phone] Gale Braxton APRN CNM Unavailable Amie Teixeira APRN LUSTER REPAIRER Unavailable [phone] Norma Zhang APRN LUSTER REPAIRER Unavailable Gale Braxton APRN CNM Unavailable Irineo Lebron PhD Unavailable [phone] Linn Macias APRN CNM Unavailable [phone] Gale Braxton APRN CNM Unavailable Encounter Details Date Type Department Care Team (Late st Contact Info) Description 02/20/2021 MyC Medical Advice [facility] [address] [place] [address] Araceli Jolley, CNM [address] [place] [address] Social History Tobacco Use Types Packs/Day Years Used Date Smoking Tobacco: Never Smokeless Tobacco: Never Alcohol Use Standard Drinks/Week Comments Yes 0 (1 standard drink = 0.6 oz pure alcohol) socially, couple times per month PHQ-2 Answer Date Recorded PHQ-2 Score 0 01/10/2021 [place] Depression Scale Answer Date Recorded [place] Depression Score 0 03/27/2020 Last EPDS Self Harm Result Not on file 03/27 Sex and Gender Information Value Date Recorded Sex Assigned at Female 06/06/2018 9:16 PM STATION CASHIER Gender Identity Female 06/06/2018 9:16 PM STATION CASHIER Sexual Orientation Straight 06/06/2018 9: 16 PM STATION CASHIER COVID-19 Exposure Response Date Recorded In the last month, have you been in contact with someone who was confirmed or suspected to have Coronavirus / COVID-19? No / Unsure 02/23/2021 11:02 AM CDT documented as of this encounter Plan of Treatment Upcoming Encounters Date Type Department Care Team (Late st Contact Info) Description 11/30/2024 7:00 AM CDT Office Visit [facility] [place] [address] [place] [address] Norma Zhang APRN [facility] [address] [facility] [place] [address] documented as of this encounter Visit Diagnoses Not on filedocumented in this encounter Additional Health Concerns Infection Onset Date Last Indicated Resolved Time Influenza 04/27/2022 04/27/2022 05/04/2022 11:4 1 PM STATION CASHIER Assessment Noted Time PHQ-9 Depression Total Score: 2 06/28/19 16 7:53 AM STATION CASHIER documented as of this encounter Care Teams Implementation Architect Relationship Specialty Start Date End Date Pauline-Vikas, Norma Danica, IT AUDIT MANAGER LUSTER REPAIRER [address] [facility] [place] [address] PCP - General Nurse Practitioner 11/30/18 Norma Zhang APRN LUSTER REPAIRER [address] [facility] [place] [address] Assigned PCP 10/25/18 05/03/22 Ward Jennings MD [address] [place] [address] Assigned OBGYN Provider 03/24/20 Perry Milan MD [facility] [address] [place] [address] Assigned Pulmonology Provider 03/24/20 07/12/22 Cristina Giles APRN [place] [address] [place] [address] Assigned OBGYN Provider 04/08/21 Jael Hess CNM [address] [place] [address] Assigned OBGYN Provider 07/29/21 Araceli Jolley CNM [address] [place] [address] Assigned OBGYN Provider 10/27/21 2 Jael Hess CNM [address] [place] [address] Assigned OBGYN Provider 11/10/21 3 Gale Braxton APRN [facility] [address] [place] [address] Assigned OBGYN Provider 11/03/21 Amie Teixeira APRN LUSTER REPAIRER [address] [place] [address] Assigned PCP 05/04/22 06/21/22 Norma Zhang APRN LUSTER REPAIRER [address] [facility] [address] Assigned PCP 06/22/22 Gale Braxton APRN CNM [address] [place] [address] Assigned OBGYN Provider 07/06/22 Irineo Lebron, PhD [address] [place] [address] Assigned Behavioral Health Provider 11/23/22 Linn Macias APRN CNM [address] [place] [address] Assigned OBGYN Provider 02/15/2303/28 Gale Braxton APRN CNM [address] [place] [address] Assigned OBGYN Provider 03/29/23 documented as of this encounter
--- OUTSIDE RECORDS SUMMARY | 2024-03-13 22:08 | XMS_ITS | Encounter Summary ---
Author Organization [facility] Address [address] [place] [address]. [place] [address] Care Team Providers Care Senior Administrative Assistant Name Role Phone Norma Zhang APRN PLANER OFF BEARER Unavailable Norma Zhang APRN PLANER OFF BEARER Primary Car e Provider Hi Benson MD Unavailable Ward Jennings MD Unavailable Perry Milan MD Unavailable [phone] Cristina Giles SCRAP WHEELER CNM Unavailab le Jael Hess CNM Unavailable [phone] Araceli Jolley CNM Unavailable Jael Hess CNM Unavailable [phone] Gale Braxton APRN CNM Unavailable Amie Teixeira APRN PLANER OFF BEARER Unavailable [phone] Norma Zhang APRN PLANER OFF BEARER Unavailable Gale Braxton APRN CNM Unavailable Irineo Lebron PhD Unavailable [phone] Linn Macias APRN CNM Unavailable [phone] Gale Braxton APRN CNM Unavailable Encounter Details Date Type Department Care Team (Late st Contact Info) Description 11/18/[address] [facility] [place] [address] [place] [address] Debbie Dawson, RN Encounter for supervision of normal first in second trimester (Primary Dx) Social History Tobacco Use Types Packs/Day Years Used Date Smoking Tobacco: Never Smokeless Tobacco: Never Alcohol Use Standard Drinks/Week Comments Yes 0 (1 standard drink = 0.6 oz pure alcohol) socially, couple times per month PHQ-2 Answer Date Recorded PHQ-2 Score 0 06/09/2018 Comments Yes Sex and Gender Information Value Date Recorded Sex Assigned at Female 06/06/2018 9:16 PM VINYL HANGER Gender Identity Female 06/06/2018 9:16 PM VINYL HANGER Sexual Orientation Straight 06/06/2018 9: 16 PM VINYL HANGER COVID-19 Exposure Response Date Recorded In the last month, have you been in contact with someone who was confirmed or suspected to have Coronavirus / COVID-19? No / Unsure 11/17/2019 11:39 AM CDT documented as of this encounter Plan of Treatment Upcoming Encounters Date Type Department Care Team (Late st Contact Info) Description 11/30/2024 7:00 AM CDT Office Visit [facility] [place] [address] [place] [address] Drive [address] [place] [address] Norma Zhang APRN PLANER OFF BEARER [address] [place] [address] [place] [address] documented as of this encounter Visit Diagnoses Diagnosis Encounter for supervision of normal first in second trimester- Primary Supervision of normal first documented in this encounter Additional Health Concerns Infection Onset Date Last Indicated Resolved Time Influenza 04/27/2022 04/27/2022 05/04/2022 11:4 1 PM VINYL HANGER Assessment Noted Time PHQ-9 Depression Total Score: 2 06/28/19 16 7:53 AM VINYL HANGER documented as of this encounter Care Teams Senior Administrative Assistant Relationship Specialty Start Date End Date Norma Zhang APRN PLANER OFF BEARER [address] [place] [address] [place] [address] PCP - General Nurse Practitioner 11/30/18 Norma Zhang APRN PLANER OFF BEARER [address] [place] [address] [place] [address] Assigned PCP 10/25/18 05/03/22 Hi Benson MD [address] [place] [address] Assigned Surgical Provider 03/24/20 07/15/20 Ward Jennings MD [address] [place] [address] Assigned OBGYN Provider 03/24/20 Perry Milan MD [facility] [address] [place] [address] Assigned Pulmonology Provider 03/24/20 07/12/22 Cristina Giles [place]N [place] [address] [place] [address] Assigned OBGYN Provider 04/08/21 Jael Hess CNM [address] [place] [address] Assigned OBGYN Provider 07/29/21 Araceli Jolley CNM [address] [place] [address] Assigned OBGYN Provider 10/27/21 6/ 2 Jael Hess CNM [address] [place] [address] Assigned OBGYN Provider 11/10/21 3 Gale Braxton APRN CNM [address] [place] [address] Assigned OBGYN Provider 11/03/21 Amie Teixeira APRN PLANER OFF BEARER [address] [place] [address] Assigned PCP 05/04/22 06/21/22 Norma Zhang APRN PLANER OFF BEARER [address] [facility] [place] [address] Assigned PCP 06/22/22 Gale Braxton APRN CNM [address] [place] [address] Assigned OBGYN Provider 07/06/22 Irineo Lebron, PhD [address] [place] [address] Assigned Behavioral Health Provider 11/23/22 Linn Macias APRN CNM [address] [place] [address] Assigned OBGYN Provider 02/15/2303/28 Gale Braxton APRN CNM [address] [place] [address] Assigned OBGYN Provider 03/29/23 documented as of this encounter
--- OUTSIDE RECORDS SUMMARY | 2024-03-13 22:08 | XMS_ITS | Encounter Summary ---
Author Organization [facility] Address [address] [place] [address]. [place] [address] Care Team Providers Care Compensation And Benefits Analyst Name Role Phone Norma Zhang APRN, CNP Unavailable Norma Zhang APRN EMERGENCY SERVICES DISPATCHER Primary Car e Provider Ward Jennings MD Unavailable Perry Milan MD Unavailable [phone] Cristina Giles POWER PRESS TENDER CNM Unavailab le Jael Hess CNM Unavailable [phone] Araceli Jolley CNM Unavailable Jael Hess CNM Unavailable Gale Braxton APRN CNM Unavailable Amie Teixeira APRN EMERGENCY SERVICES DISPATCHER Unavailable [phone] Norma Zhang APRN EMERGENCY SERVICES DISPATCHER Unavailable Gale Braxton APRN CNM Unavailable Irineo Lebron PhD Unavailable [phone] Linn Macias APRN CNM Unavailable [phone] Gale Braxton APRN CNM Unavailable Encounter Details Date Type Department Care Team (Late st Contact Info) Description 01/21/2021 MyC Medical Advice [facility] [address] [place] [address] Jael Hess CNM [address] [place] [address] Social History Tobacco Use Types Packs/Day Years Used Date Smoking Tobacco: Never Smokeless Tobacco: Never Alcohol Use Standard Drinks/Week Comments Yes 0 (1 standard drink = 0.6 oz pure alcohol) socially, couple times per month PHQ-2 Answer Date Recorded PHQ-2 Score 0 01/10/2021 [place] Depression Scale Answer Date Recorded [place] Depression Score 0 03/27/2020 Last EPDS Self Harm Result Not on file 03/27 Sex and Gender Information Value Date Recorded Sex Assigned at Female 06/06/2018 9:16 PM CLASSIFICATION INSPECTOR Gender Identity Female 06/06/2018 9:16 PM CLASSIFICATION INSPECTOR Sexual Orientation Straight 06/06/2018 9: 16 PM CLASSIFICATION INSPECTOR COVID-19 Exposure Response Date Recorded In the last month, have you been in contact with someone who was confirmed or suspected to have Coronavirus / COVID-19? No / Unsure 01/03/2021 10:51 AM CDT documented as of this encounter Plan of Treatment Upcoming Encounters Date Type Department Care Team (Late st Contact Info) Description 11/30/2024 7:00 AM CDT Office Visit [facility] [place] [address] [place] [address] [address] [place] [address] Norma Zhang APRN [address] [place] [address] documented as of this encounter Visit Diagnoses Not on filedocumented in this encounter Additional Health Concerns Infection Onset Date Last Indicated Resolved Time Influenza 04/27/2022 04/27/2022 05/04/2022 11:4 1 PM CLASSIFICATION INSPECTOR Assessment Noted Time PHQ-9 Depression Total Score: 2 06/28/19 16 7:53 AM CLASSIFICATION INSPECTOR documented as of this encounter Care Teams Compensation And Benefits Analyst Relationship Specialty Start Date End Date Norma Zhang APRN EMERGENCY SERVICES DISPATCHER [address] [facility] [place] [address] PCP - General Nurse Practitioner 11/30/18 Norma Zhang APRN EMERGENCY SERVICES DISPATCHER [address] [facility] [place] [address] Assigned PCP 10/25/18 05/03/22 Ward Jennings MD [address] [place] [address] Assigned OBGYN Provider 03/24/20 Perry Milan MD [facility] [address] [place] [address] Assigned Pulmonology Provider 03/24/20 07/12/22 Crist[place] [address] [place] [address] Assigned OBGYN Provider 04/08/21 Jael Hess CNM [address] [place] [address] Assigned OBGYN Provider 07/29/21 Araceli Jolley CNM [address] [place] [address] Assigned OBGYN Provider 10/27/21 2 Jael Hess CNM [address] [place] [address] Assigned OBGYN Provider 11/10/21 3 Gale Braxton APRN CNM [address] [place] [address] Assigned OBGYN Provider 11/03/21 Amie Teixeira APRN EMERGENCY SERVICES DISPATCHER [address] [place] [address] Assigned PCP 05/04/22 06/21/22 Norma Zhang APRN EMERGENCY SERVICES DISPATCHER [address] [facility] [place] [address] Assigned PCP 06/22/22 Gale Braxton APRN CNM [address] [place] [address] Assigned OBGYN Provider 07/06/22 Irineo Lebron, PhD [address] [place] [address] Assigned Behavioral Health Provider 11/23/22 Linn Macias APRN CNM [facility] [address] Assigned OBGYN Provider 02/15/2303/28 Gale Braxton APRN CNM [address] [place] [address] Assigned OBGYN Provider 03/29/23 documented as of this encounter
--- OUTSIDE RECORDS SUMMARY | 2024-03-13 22:08 | XMS_ITS | Encounter Summary ---
Author Organization [facility] Address [address] [place] [address]. [place] [address] Care Team Providers Care Airframe And Powerplant Mechanic Name Role Phone Norma Zhang APRN CASH REGISTER MECHANIC Unavailable Norma Zhang APRN CASH REGISTER MECHANIC Primary Car e Provider Hi Benson MD Unavailable Ward Jennings MD Unavailable Perry Milan MD Unavailable Cristina Giles VEHICLE INSURANCE AGENT CNM Unavailab le Jael Hess CNM Unavailable [phone] Araceli Jolley CNM Unavailable Jael Hess CNM Unavailable [phone] Gale Braxton APRN CNM Unavailable Amie Teixeira APRN CASH REGISTER MECHANIC Unavailable [phone] Norma Zhang APRN CASH REGISTER MECHANIC Unavailable Gale Braxton APRN CNM Unavailable Irineo Lebron PhD Unavailable [phone] Linn Macias APRN CNM Unavailable [phone] Gale Braxton APRN CNM Unavailable Reason for Visit * Reason Onset Date Comments Patient Request for Note/Letter 11/04/2019 Encounter Details Date Type Department Care Team (Late st Contact Info) Description 11/04/2019 MyC Medical Advice [facility] [address] [place] [address] Ward Jennings MD [address] [place] [address] Patient Request for Note/Letter Social History Tobacco Use Types Packs/Day Years Used Date Smoking Tobacco: Never Smokeless Tobacco: Never Alcohol Use Standard Drinks/Week Comments Yes 0 (1 standard drink = 0.6 oz pure alcohol) socially, couple times per month PHQ-2 Answer Date Recorded PHQ-2 Score 0 06/09/2018 Comments Yes Sex and Gender Information Value Date Recorded Sex Assigned at Female 06/06/2018 9:16 PM DIELECTRIC EMBOSSING MACHINE OPERATOR Gender Identity Female 06/06/2018 9:16 PM DIELECTRIC EMBOSSING MACHINE OPERATOR Sexual Orientation Straight 06/06/2018 9: 16 PM DIELECTRIC EMBOSSING MACHINE OPERATOR COVID-19 Exposure Response Date Recorded In the last month, have you been in contact with someone who was confirmed or suspected to have Coronavirus / COVID-19? No / Unsure 10/05/2019 1:47 PM CDT documented as of this encounter Plan of Treatment Upcoming Encounters Date Type Department Care Team (Late st Contact Info) Description 11/30/2024 7:00 AM CDT Office Visit [facility] [place] [address] [facility] [address] [place] [phone] Norma Zhang APRN [facility] [address] [facility] [place] [address] documented as of this encounter Visit Diagnoses Not on filedocumented in this encounter Additional Health Concerns Infection Onset Date Last Indicated Resolved Time Influenza 04/27/2022 04/27/2022 05/04/2022 11:4 1 PM DIELECTRIC EMBOSSING MACHINE OPERATOR Assessment Noted Time PHQ-9 Depression Total Score: 2 06/28/19 16 7:53 AM DIELECTRIC EMBOSSING MACHINE OPERATOR documented as of this encounter Care Teams Airframe And Powerplant Mechanic Relationship Specialty Start Date End Date Norma Zhang APRN CASH REGISTER MECHANIC [address] [facility] [place] [address] PCP - General Nurse Practitioner 11/30/18 Norma Zhang APRN CASH REGISTER MECHANIC [address] [facility] [place] [address] Assigned PCP 10/25/18 05/03/22 Hi Benson MD [address] [place] [address] Assigned Surgical Provider 03/24/20 07/15/20 Ward Jennings MD [address] [place] [address] Assigned OBGYN Provider 03/24/20 Perry Milan MD [facility] [address] [place] [address] Assigned Pulmonology Provider 03/24/20 07/12/22 Cristina Giles APRN [facility] [address] [facility] 200 [place] [address] Assigned OBGYN Provider 04/08/21 Jael Hess CNM [address] [place] [address] Assigned OBGYN Provider 07/29/21 Araceli Jolley CNM [address] [place] [address] Assigned OBGYN Provider 10/27/21 2 Jael Hess CNM [address] [place] [address] Assigned OBGYN Provider 11/10/21 3 Gale Braxton APRN CNM [address] [place] [address] Assigned OBGYN Provider 11/03/21 Amie Teixeira APRN CASH REGISTER MECHANIC [address] [place] [address] Assigned PCP 05/04/22 06/21/22 Norma Zhang APRN CASH REGISTER MECHANIC [address] [facility] [place] [address] Assigned PCP 06/22/22 Gale Braxton APRN CNM [address] [place] [address] Assigned OBGYN Provider 07/06/22 Irineo Lebron, PhD 5[address] [place] [address] Assigned Behavioral Health Provider 11/23/22 Linn Macias APRN CNM [facility] [address] Assigned OBGYN Provider 02/15/2303/28 Gale Braxton APRN CNM [address] [place] [address] Assigned OBGYN Provider 03/29/23 documented as of this encounter
[2024-03-13 22:09] LABS: Slide Review Reflex No
[2024-03-13 22:09] LABS: Ur HCG Qualitative* Negative (Negative)
--- OUTSIDE RECORDS SUMMARY | 2024-03-13 22:09 | XMS_ITS | Encounter Summary ---
Author Organization [facility] Address [address] [place] [address]. [place] [address] Care Team Providers Care Toppiece Chopper Name Role Phone Renu Berrios PA-C Primary Care Provider + [phone] Anuja Raymundo MD Unavailable [phone] Anuja Raymundo MD Unavailable Norma Zhang APRN MAINTENANCE OF WAY CLERK Unavailable Norma Zhang APRN MAINTENANCE OF WAY CLERK Primary Car e Provider Hi Benson MD Unavailable [phone] Ward Jennings MD Unavailable [phone] Perry Milan MD Unavailable [phone] Cristina Giles HELICOPTER ENGINEER CNM Unavailab le Jael Hess CNM Unavailable [phone] Araceli Jolley CNM Unavailable [phone] Jael Hess CNM Unavailable [phone] Gale Braxton HELICOPTER ENGINEER CNM Unavailable [phone] Amie Teixeira APRN MAINTENANCE OF WAY CLERK Unavailable [phone] Norma Zhang APRN MAINTENANCE OF WAY CLERK Unavailable Gale Braxton HELICOPTER ENGINEER CNM Unavailable BernardinoIrineo Elton PhD Unavailable Linn Macias HELICOPTER ENGINEER CNM Unavailable [phone] Gale Braxton HELICOPTER ENGINEER CNM Unavailable Encounter Details Date Type Department Care Team (Late st Contact Info) Description 06/19/2016 MyC Medical Advice [facility] [address] [facility] [facility] [place] [phone] Anuja Raymundo MD [address] [facility] [address] [place] [address] Social History Tobacco Use Types Packs/Day Years Used Date Smoking Tobacco: Never Smokeless Tobacco: Never Alcohol Use Standard Drinks/Week Comments Yes 0 (1 standard drink = 0.6 oz pure alcohol) socially, couple times per month Sex and Gender Information Value Date Recorded Sex Assigned at Female 06/06/2018 9:16 PM DIRECTOR OF APPLICATION DEVELOPMENT Gender Identity Female 06/06/2018 9:16 PM DIRECTOR OF APPLICATION DEVELOPMENT Sexual Orientation Straight 06/06/2018 9: 16 PM DIRECTOR OF APPLICATION DEVELOPMENT documented as of this encounter Plan of Treatment Upcoming Encounters Date Type Department Care Team (Late st Contact Info) Description 11/30/2024 7:00 AM CDT Office Visit [address] [place] [phone] Norma Zhang APRN MAINTENANCE OF WAY CLERK [address] [place] [address] [place] [address] documented as of this encounter Visit Diagnoses Not on filedocumented in this encounter Additional Health Concerns Infection Onset Date Last Indicated Resolved Time Influenza 04/27/2022 04/27/2022 05/04/2022 11:4 1 PM DIRECTOR OF APPLICATION DEVELOPMENT Assessment Noted Time PHQ-9 Depression Total Score: 2 06/28/19 16 7:53 AM DIRECTOR OF APPLICATION DEVELOPMENT documented as of this encounter Care Teams Toppiece Chopper Relationship Specialty Start Date End Date Renu Berrios PA-C [address] [place] [address] PCP - General Physician Company Miner Blasting - Medical 12/25/15 11/29/18 Anuja Raymundo MD [address] [place] [address] PCP - Assigned PCP 02/15/18 08/04/18 Norma Zhang APRN MAINTENANCE OF WAY CLERK [address] [facility] [place] [address] PCP - General Nurse Practitioner 11/30/18 Anuja Raymundo MD [address] [place] [address] Assigned PCP 02/15/18 10/24/18 Norma Zhang APRN MAINTENANCE OF WAY CLERK [address] [place] [address] [place] [address] Assigned PCP 10/25/18 05/03/22 Hi Benson MD [address] [place] [address] Assigned Surgical Provider 03/24/20 07/15/20 Ward Jennings MD [address] [place] [address] Assigned OBGYN Provider 03/24/20 04/07/21 Perry Milan MD [facility] [address] [place] [address] Assigned Pulmonology Provider 03/24/20 07/12/22 Cristina Giles APRN [facility] [address] [place] [address] Assigned OBGYN Provider 04/08/21 07/28/21 Jael Hess CNM [address] [place] [address] Assigned OBGYN Provider 07/29/21 10/26/21 Araceli Jolley CNM [address] [place] [address] Assigned OBGYN Provider 10/27/21 11/02/21 Jael Hess CNM [address] [place] [address] Assigned OBGYN Provider 11/10/21 07/05/22 Gale Braxton APRN CNM [address] [place] [address] Assigned OBGYN Provider 11/03/21 11/09/21 Amie Teixeira APRN MAINTENANCE OF WAY CLERK [address] [place] [address] Assigned PCP 05/04/22 06/21/22 Norma Zhang APRN MAINTENANCE OF WAY CLERK [address] [facility] [address] Assigned PCP 06/22/22 Gale Braxton APRN CNM [address] [place] [address] Assigned OBGYN Provider 07/06/22 02/14/23 Irineo Lebron, PhD 5200 [place] [address] Assigned Behavioral Health Provider 11/23/22 Linn Macias APRN CNM [address] [place] [address] Assigned OBGYN Provider 02/15/23 03/28/23 Gale Braxton APRN CNM [address] [place] [address] Assigned OBGYN Provider 03/29/23 05/02/23 documented as of this encounter
--- OUTSIDE RECORDS SUMMARY | 2024-03-13 22:09 | XMS_ITS | Encounter Summary ---
Author Organization [facility] Address [address] [place] [address]. [place] [address] Care Team Providers Care Director Of Accounts Receivable Name Role Phone Renu Berrios PA-C Primary Care Provider + [phone] Anuja Raymundo MD Unavailable [phone] Anuja Raymundo MD Unavailable Norma Zhang APRN SYSTEMS ANALYST ENGINEER Unavailable Norma Zhang APRN SYSTEMS ANALYST ENGINEER Primary Car e Provider Hi Benson MD Unavailable [phone] Ward Jennings MD Unavailable [phone] Perry Milan MD Unavailable [phone] Cristina Giles SEBD TEACHER CNM Unavailab le Jael Hess CNM Unavailable [phone] Araceli Jolley CNM Unavailable [phone] Jael Hess CNM Unavailable [phone] Gale Braxton SEBD TEACHER CNM Unavailable [phone] Amie Teixeira APRN SYSTEMS ANALYST ENGINEER Unavailable [phone] Norma Zhang APRN SYSTEMS ANALYST ENGINEER Unavailable Gale Braxton SEBD TEACHER CNM Unavailable [phone] BernardinoIrineo motta Elton PhD Unavailable [phone] Linn Macias SEBD TEACHER CNM Unavailable [phone] Gale Braxton SEBD TEACHER CNM Unavailable Reason for Visit * Reason Comments Medication Refill Encounter Details Date Type Department Care Team (Late st Contact Info) Description 05/22/[address] [facility] [address] [place] [address] Renu Berrios PA-C [address] [place] [address] Medication Refill Social History Tobacco Use Types Packs/Day Years Used Date Smoking Tobacco: Never Smokeless Tobacco: Never Alcohol Use Standard Drinks/Week Comments Yes 0 (1 standard drink = 0.6 oz pure alcohol) socially, couple times per month Sex and Gender Information Value Date Recorded Sex Assigned at Female 06/06/2018 9:16 PM PROCESSING LEAD Gender Identity Female 06/06/2018 9:16 PM PROCESSING LEAD Sexual Orientation Straight 06/06/2018 9: 16 PM PROCESSING LEAD documented as of this encounter Miscellaneous Notes * Telephone Encounter - Irma Blanc RN - 05/25/2018 8:25 AM CST Routing refill request to provider for review/approval because: Sania given x1 and patient did not follow up, please advise Irma Blanc BSN, RN, CPN ESSING LEAD documented in this encounter Plan of Treatment Upcoming Encounters Date Type Department Care Team (Late st Contact Info) Description 11/30/2024 7:00 AM CDT Office Visit [address] [place] [phone] Norma Zhang APRN SYSTEMS ANALYST ENGINEER [address] [facility] [place] [id number] documented as of this encounter Visit Diagnoses Diagnosis Encounter for surveillance of other contraceptive documented in this encounter Additional Health Concerns Infection Onset Date Last Indicated Resolved Time Influenza 04/27/2022 04/27/2022 05/04/2022 11:4 1 PM PROCESSING LEAD Assessment Noted Time PHQ-9 Depression Total Score: 2 06/28/19 16 7:53 AM PROCESSING LEAD documented as of this encounter Care Teams Director Of Accounts Receivable Relationship Specialty Start Date End Date Renu Berrios PA-C [address] [place] [address] PCP - General Physician Sports Book Server - Medical 12/25/15 11/29/18 Anuja Raymundo MD [address] [place] [address] PCP - Assigned PCP 02/15/18 08/04/18 Norma Zhang APRN SYSTEMS ANALYST ENGINEER [address] [place] [address] [place] [address] PCP - General Nurse Practitioner 11/30/18 Anuja Raymundo MD [address] [place] [address] Assigned PCP 02/15/18 10/24/18 Norma Zhang APRN SYSTEMS ANALYST ENGINEER [address] [place] [address] [place] [address] Assigned PCP 10/25/18 05/03/22 Hi Benson MD [address] [place] [address] Assigned Surgical Provider 03/24/20 07/15/20 Ward Jennings MD [address] [place] [address] Assigned OBGYN Provider 03/24/20 04/07/21 Perry Milan MD [facility] [address] [place] [address] Assigned Pulmonology Provider 03/24/20 07/12/22 Cristina Giles APRN CNM [address] [place] [address] Assigned OBGYN Provider 04/08/21 07/28/21 Jael Hess CNM [address] [place] [address] Assigned OBGYN Provider 07/29/21 10/26/21 Araceli Jolley CNM [address] [place] [address] Assigned OBGYN Provider 10/27/21 11/02/21 Jael Hess CNM [address] [place] [address] Assigned OBGYN Provider 11/10/21 07/05/22 Gale Braxton APRN [facility] [address] [place] [address] Assigned OBGYN Provider 11/03/21 11/09/21 Amie Teixeira APRN SYSTEMS ANALYST ENGINEER [address] [place] [address] Assigned PCP 05/04/22 06/21/22 Norma Zhang APRN SYSTEMS ANALYST ENGINEER [address] [place] [address] Assigned PCP 06/22/22 Gale Braxton APRN [facility] [address] [place] [address] Assigned OBGYN Provider 07/06/22 02/14/23 Irineo Lebron, PhD [address] [place] [address] Assigned Behavioral Health Provider 11/23/22 Linn Macias APRN CNM [facility] [address] Assigned OBGYN Provider 02/15/23 03/28/23 Gale Braxton APRN [facility] [address] [place] [address] Assigned OBGYN Provider 03/29/23 05/02/23 documented as of this encounter
--- OUTSIDE RECORDS SUMMARY | 2024-03-13 22:09 | XMS_ITS | Encounter Summary ---
Author Organization [facility] Address [address] [place] [address]. [place] [address] Care Team Providers Care Sack Sorter Name Role Phone Renu Berrios PA-C Primary Care Provider + [phone] Anuja Raymundo MD Unavailable [phone] Anuja Raymundo MD Unavailable Norma Zhang APRN DOG LICENSE OFFICER SUPERVISOR Unavailable Norma Zhang APRN DOG LICENSE OFFICER SUPERVISOR Primary Car e Provider Hi Benson MD Unavailable [phone] Ward Jennings MD Unavailable [phone] Perry Milan MD Unavailable [phone] Cristina Giles FLIGHT TECHNICIAN CNM Unavailab le Jael Hess CNM Unavailable [phone] Araceli Jolley CNM Unavailable [phone] Jael Hess CNM Unavailable [phone] Gale Braxton FLIGHT TECHNICIAN CNM Unavailable [phone] Amie Teixeira APRN DOG LICENSE OFFICER SUPERVISOR Unavailable [phone] Norma Zhang APRN DOG LICENSE OFFICER SUPERVISOR Unavailable EmmanuelGale matthews FLIGHT TECHNICIAN CNM Unavailable Irineo Lebron PhD Unavailable [phone] Linn Macias FLIGHT TECHNICIAN CNM Unavailable [phone] Gale Braxton FLIGHT TECHNICIAN CNM Unavailable Encounter Details Date Type Department Care Team (Late st Contact Info) Description 04/24/2016 Telephone [facility] [address] [place] [facility] [place] [address] Jailyn Light PA-C [address] [place] [address] Social History Tobacco Use Types Packs/Day Years Used Date Smoking Tobacco: Never Smokeless Tobacco: Never Alcohol Use Standard Drinks/Week Comments Yes 0 (1 standard drink = 0.6 oz pure alcohol) socially, couple times per month Sex and Gender Information Value Date Recorded Sex Assigned at Female 06/06/2018 9:16 PM PARTS SALES COUNTERPERSON Gender Identity Female 06/06/2018 9:16 PM PARTS SALES COUNTERPERSON Sexual Orientation Straight 06/06/2018 9: 16 PM PARTS SALES COUNTERPERSON documented as of this encounter Miscellaneous Notes * Telephone Encounter - Mey Lindsay - 04/24/2016 2:28 PM CST Pt was seen yesterday, she needs a docotor note for work, she will come in and pick it up. S SALES COUNTERPERSON documented in this encounter Plan of Treatment Upcoming Encounters Date Type Department Care Team (Late st Contact Info) Description 11/30/2024 7:00 AM CDT Office Visit [facility] [address] [facility] [address] [place] [phone] Norma Zhang APRN DOG LICENSE OFFICER SUPERVISOR [address] [facility] [place] [id number] documented as of this encounter Visit Diagnoses Not on filedocumented in this encounter Additional Health Concerns Infection Onset Date Last Indicated Resolved Time Influenza 04/27/2022 04/27/2022 05/04/2022 11:4 1 PM PARTS SALES COUNTERPERSON Assessment Noted Time PHQ-9 Depression Total Score: 2 06/28/19 16 7:53 AM PARTS SALES COUNTERPERSON documented as of this encounter Care Teams Sack Sorter Relationship Specialty Start Date End Date Renu Berrios PA-C [address] [place] [address] PCP - General Physician Fire Control Technician B - Medical 12/25/15 11/29/18 Anuja Raymundo MD [address] [place] [address] PCP - Assigned PCP 02/15/18 08/04/18 Norma Zhang APRN DOG LICENSE OFFICER SUPERVISOR [address] [facility] [place] [address] PCP - General Nurse Practitioner 11/30/18 Anuja Raymundo MD [address] [place] [address] Assigned PCP 02/15/18 10/24/18 Norma Zhang APRN DOG LICENSE OFFICER SUPERVISOR [address] [place] [address] [place] [address] Assigned PCP 10/25/18 05/03/22 Hi Benson MD [address] [place] [address] Assigned Surgical Provider 03/24/20 07/15/20 Ward Jennings MD [address] [place] [address] Assigned OBGYN Provider 03/24/20 04/07/[address] [facility] [address] [place] [address] Assigned Pulmonology Provider 03/24/20 07/12/22 Cristina Giles APRN CNM [address] [place] [address] Assigned OBGYN Provider 04/08/21 07/28/21 Jael Hess CNM [address] [place] [address] Assigned OBGYN Provider 07/29/21 10/26/21 Araceli Jolley CNM [address] [place] [address] Assigned OBGYN Provider 10/27/21 11/02/21 Jael Hess CNM [address] [place] [address] Assigned OBGYN Provider 11/10/21 07/05/22 Gale Braxton APRN CNM [address] [place] [address] Assigned OBGYN Provider 11/03/21 11/09/21 Amie Teixeira APRN DOG LICENSE OFFICER SUPERVISOR [address] [place] [address] Assigned PCP 05/04/22 06/21/22 Norma Zhang APRN DOG LICENSE OFFICER SUPERVISOR [address] [facility] [place] [address] Assigned PCP 06/22/22 Gale Braxton APRN CNM [address] [place] [address] Assigned OBGYN Provider 07/06/22 02/14/23 Irineo Lebron, PhD [address] [place] [address] Assigned Behavioral Health Provider 11/23/22 Linn Macias APRN CNM [address] [place] [address] Assigned OBGYN Provider 02/15/23 03/28/23 Gale Braxton APRN CN [address] [place] [address] Assigned OBGYN Provider 03/29/23 05/02/23 documented as of this encounter
--- OUTSIDE RECORDS SUMMARY | 2024-03-13 22:09 | XMS_ITS | Encounter Summary ---
Author Organization [facility] Address [address] [place] [address]. [place] [address] Care Team Providers Care Care Worker Name Role Phone Renu Berrios PA-C Primary Care Provider + [phone] Norma Zhang APRN MECHANICAL DESIGN TECHNICIAN Unavailable PaulineNorma Bean APRN MECHANICAL DESIGN TECHNICIAN Primary Car e Provider Hi Benson MD Unavailable [phone] Ward Jennings MD Unavailable Perry Milan MD Unavailable [phone] Cristina Giles APRN CNM Unavailab le Jael Hess CNM Unavailable [phone] Araceli Jolley CNM Unavailable Jael Hess CNM Unavailable [phone] Gale Braxton APRN CNM Unavailable Amie Teixeira APRN MECHANICAL DESIGN TECHNICIAN Unavailable [phone] Norma Zhang APRN MECHANICAL DESIGN TECHNICIAN Unavailable Gale Braxton APRN CNM Unavailable Irineo Lebron PhD Unavailable [phone] Linn Macias APRN CN Unavailable Gale Braxton SCHOOL CHILD CARE ATTENDANT CN Unavailable [phone] Encounter Details Date Type Department Care Team (Late st Contact Info) Description 11/10/2018 MyC Medical Advice [address] [place] [phone] Norma Zhang APRN [address] [place] [id number] Social History Tobacco Use Types Packs/Day Years Used Date Smoking Tobacco: Never Smokeless Tobacco: Never Alcohol Use Standard Drinks/Week Comments Yes 0 (1 standard drink = 0.6 oz pure alcohol) socially, couple times per month PHQ-2 Answer Date Recorded PHQ-2 Score 0 06/09/2018 Sex and Gender Information Value Date Recorded Sex Assigned at Female 06/06/2018 9:16 PM FOOD SERVICE COORDINATOR Gender Identity Female 06/06/2018 9:16 PM FOOD SERVICE COORDINATOR Sexual Orientation Straight 06/06/2018 9: 16 PM FOOD SERVICE COORDINATOR documented as of this encounter Plan of Treatment Upcoming Encounters Date Type Department Care Team (Late st Contact Info) Description 11/30/2024 7:00 AM CDT Office Visit [address] [place] [phone] Norma Zhang APRN [address] [place] [address] documented as of this encounter Visit Diagnoses Not on filedocumented in this encounter Additional Health Concerns Infection Onset Date Last Indicated Resolved Time Influenza 04/27/2022 04/27/2022 05/04/2022 11:4 1 PM FOOD SERVICE COORDINATOR Assessment Noted Time PHQ-9 Depression Total Score: 2 06/28/19 16 7:53 AM FOOD SERVICE COORDINATOR documented as of this encounter Care Teams Care Worker Relationship Specialty Start Date End Date Renu Berrios, GATOC [address] [place] [address] PCP - General Physician Investigation Division Captain - Medical 12/25/15 11/29/18 Norma Zhang APRN MECHANICAL DESIGN TECHNICIAN [address] [facility] [place] [address] PCP - General Nurse Practitioner 11/30/18 Norma Zhang APRN MECHANICAL DESIGN TECHNICIAN [address] [place] [address] [place] [address] Assigned PCP 10/25/18 05/03/22 Hi Benson MD [address] [place] [address] Assigned Surgical Provider 03/24/20 07/15/20 Ward Jennings MD [address] [place] [address] Assigned OBGYN Provider 03/24/20 04/07/21 Perry Milan MD [facility] [address] [place] [address] Assigned Pulmonology Provider 03/24/20 07/12/22 Cristina Giles APRN CNM [address] [facility] [address] [place] [address] Assigned OBGYN Provider 04/08/21 07/28/21 Jael Hess CNM [address] [place] [address] Assigned OBGYN Provider 07/29/21 10/26/21 Araceli Jolley CNM [address] [place] [address] Assigned OBGYN Provider 10/27/21 11/02/21 Jael Hess CNM [address] [place] [address] Assigned OBGYN Provider 11/10/21 07/05/22 Gale Braxton APRN CNM [address] [place] [address] Assigned OBGYN Provider 11/03/21 11/09/21 Amie Teixeira APRN MECHANICAL DESIGN TECHNICIAN [address] [place] [address] Assigned PCP 05/04/22 06/21/22 Norma Zhang APRN MECHANICAL DESIGN TECHNICIAN [address] [facility] [place] [address] Assigned PCP 06/22/22 Gale Braxton APRN CNM [address] [place] [address] Assigned OBGYN Provider 07/06/22 02/14/23 Irineo Lebron, PhD [address] [place] [address] Assigned Behavioral Health Provider 11/23/22 Linn Macias APRN CNM [facility] [address] Assigned OBGYN Provider 02/15/23 03/28/23 Gale Braxton APRN [facility] [address] [place] [address] Assigned OBGYN Provider 03/29/23 05/02/23 documented as of this encounter
--- OUTSIDE RECORDS SUMMARY | 2024-03-13 22:09 | XMS_ITS | Encounter Summary ---
Author Organization [place] Address [address] [place] [address]. [place] [address] Care Team Providers Care Dinker Name Role Phone Norma Zhang APRN IN FLIGHT CREW MEMBER Unavailable Norma Zhang APRN IN FLIGHT CREW MEMBER Primary Car e Provider Hi Benson MD Unavailable Ward Jennings MD Unavailable Perry Milan MD Unavailable Cristina Giles FIRER BOILER CNM Unavailab le Jael Hess CNM Unavailable [phone] Araceli Jolley CNM Unavailable Jael Hess CNM Unavailable Gale Braxton APRN CNM Unavailable Amie Teixeira APRN IN FLIGHT CREW MEMBER Unavailable [phone] Norma Zhang APRN IN FLIGHT CREW MEMBER Unavailable Gale Braxton APRN CNM Unavailable Irineo Lebron PhD Unavailable [phone] Linn Macias APRN CNM Unavailable [phone] Gale Braxton APRN CNM Unavailable Reason for Visit * Reason Onset Date Comments Care 07/14/2019 Encounter Details Date Type Department Care Team (Late st Contact Info) Description 07/14/2019 MyC Medical Advice [facility] [place] [address] [place] [address] Kiera Steinberg MD [address] [place] [address] Care Social History Tobacco Use Types Packs/Day Years Used Date Smoking Tobacco: Never Smokeless Tobacco: Never Alcohol Use Standard Drinks/Week Comments Yes 0 (1 standard drink = 0.6 oz pure alcohol) socially, couple times per month PHQ-2 Answer Date Recorded PHQ-2 Score 0 06/09/2018 Comments Yes Sex and Gender Information Value Date Recorded Sex Assigned at Female 06/06/2018 9:16 PM RN WOUND Gender Identity Female 06/06/2018 9:16 PM RN WOUND Sexual Orientation Straight 06/06/2018 9: 16 PM RN WOUND documented as of this encounter Plan of Treatment Upcoming Encounters Date Type Department Care Team (Late st Contact Info) Description 11/30/2024 7:00 AM CDT Office Visit [facility] [place] [address] [place] [address] [address] [place] [address] Norma Zhang APRN IN FLIGHT CREW MEMBER [address] [place] [address] [place] [address] documented as of this encounter Visit Diagnoses Not on filedocumented in this encounter Additional Health Concerns Infection Onset Date Last Indicated Resolved Time Influenza 04/27/2022 04/27/2022 05/04/2022 11:4 1 PM RN WOUND Assessment Noted Time PHQ-9 Depression Total Score: 2 06/28/19 16 7:53 AM RN WOUND documented as of this encounter Care Teams Dinker Relationship Specialty Start Date End Date Norma Zhang APRN IN FLIGHT CREW MEMBER [address] [place] [address] [place] [address] PCP - General Nurse Practitioner 11/30/18 Pauline-Norma Bean APRN IN FLIGHT CREW MEMBER [address] [facility] [place] [address] Assigned PCP 10/25/18 05/03/22 Hi Benson MD [address] [place] [address] Assigned Surgical Provider 03/24/20 07/15/20 Ward Jennings MD [address] [place] [address] Assigned OBGYN Provider 03/24/20 Perry Milan MD [facility] [address] [place] [address] Assigned Pulmonology Provider 03/24/20 07/12/22 Cristina Giles APRN CNM [address] [facility] [address] [place] [address] Assigned OBGYN Provider 04/08/21 Jael Hess CNM [address] [place] [address] Assigned OBGYN Provider 07/29/21 Araceli Jolley CNM [address] [facility] [address] [place] [address] Assigned OBGYN Provider 10/27/21 2 Jael Hess CNM [address] [place] [address] Assigned OBGYN Provider 11/10/21 3 Gale Braxton APRN CNM [address] [place] [address] Assigned OBGYN Provider 11/03/21 Amie Teixeira APRN IN FLIGHT CREW MEMBER [address] [place] [address] Assigned PCP 05/04/22 06/21/22 Norma Zhang APRN IN FLIGHT CREW MEMBER [address] [facility] [place] [address] Assigned PCP 06/22/22 Gale Braxton APRN CNM [address] [place] [address] Assigned OBGYN Provider 07/06/22 Irineo Lebron, PhD [address] [place] [address] Assigned Behavioral Health Provider 11/23/22 Linn Macias APRN CNM [address] [place] [address] Assigned OBGYN Provider 02/15/2303/28 Gale Braxton APRN CNM [address] [place] [address] Assigned OBGYN Provider 03/29/23 documented as of this encounter
--- OUTSIDE RECORDS SUMMARY | 2024-03-13 22:09 | XMS_ITS | Encounter Summary ---
Author Organization [place] Address [address] [place] [address]. [place] [address] Care Team Providers Care Galley Hand Name Role Phone Renu Berrios PA-C Primary Care Provider + [phone] Anuja Raymundo MD Unavailable [phone] Anuja Raymundo MD Unavailable Norma Zhang APRN LICENSING ENGINEER Unavailable Norma Zhang APRN LICENSING ENGINEER Primary Car e Provider Hi Benson MD Unavailable [phone] Ward Jennings MD Unavailable [phone] Perry Milan MD Unavailable [phone] Cristina Giles AIR ROUTE TRAFFIC CONTROLLER CNM Unavailab le Jael Hess CNM Unavailable [phone] Araceli Jolley CNM Unavailable [phone] Jael Hess CNM Unavailable [phone] Gale Braxton AIR ROUTE TRAFFIC CONTROLLER CNM Unavailable [phone] Amie Teixeira APRN LICENSING ENGINEER Unavailable [phone] Norma Zhang APRN LICENSING ENGINEER Unavailable Gale Braxton AIR ROUTE TRAFFIC CONTROLLER CNM Unavailable Irineo Lebron PhD Unavailable [phone] Linn Macias AIR ROUTE TRAFFIC CONTROLLER CNM Unavailable [phone] Gale Braxton AIR ROUTE TRAFFIC CONTROLLER CNM Unavailable [phone] Encounter Details Date Type Department Care Team (Late st Contact Info) Description 06/13/2016 MyC Medical Advice [address] [address] Marilyn Newton MD [address] [place] [address] Social History Tobacco Use Types Packs/Day Years Used Date Smoking Tobacco: Never Smokeless Tobacco: Never Alcohol Use Standard Drinks/Week Comments Yes 0 (1 standard drink = 0.6 oz pure alcohol) socially, couple times per month Sex and Gender Information Value Date Recorded Sex Assigned at Female 06/06/2018 9:16 PM SALESPERSON MEN'S AND BOYS' CLOTHING Gender Identity Female 06/06/2018 9:16 PM SALESPERSON [employer]'S AND BOYS[employer]OTHING Sexual Orientation Straight 06/06/2018 9: 16 PM SALESPERSON MEN'S AND BOYS' CLOTHING documented as of this encounter Plan of Treatment Upcoming Encounters Date Type Department Care Team (Late st Contact Info) Description 11/30/2024 7:00 AM CDT Office Visit [facility] [place] [address] [place] [address] Drive [address] [place] [phone] Norma Zhang APRN [address] [place] [address] documented as of this encounter Visit Diagnoses Not on filedocumented in this encounter Additional Health Concerns Infection Onset Date Last Indicated Resolved Time Influenza 04/27/2022 04/27/2022 05/04/2022 11:4 1 PM SALESPERSON MEN'S AND BOYS' CLOTHING Assessment Noted Time PHQ-9 Depression Total Score: 2 06/28/19 16 7:53 AM SALESPERSON MEN'S AND BOYS' CLOTHING documented as of this encounter Care Teams Galley Hand Relationship Specialty Start Date End Date Renu Berrios PA-C [address] [place] [address] PCP - General Physician Sql Programmer - Medical 12/25/15 11/29/18 Anuja Raymundo MD [address] [place] [address] PCP - Assigned PCP 02/15/18 08/04/18 Norma Zhang APRN LICENSING ENGINEER [address] [facility] [place] [address] PCP - General Nurse Practitioner 11/30/18 Anuja Raymundo MD [address] [place] [address] Assigned PCP 02/15/18 10/24/18 Norma Zhang APRN LICENSING ENGINEER [address] [place] [address] [place] [address] Assigned PCP 10/25/18 05/03/22 Hi Benson MD [address] [place] [address] Assigned Surgical Provider 03/24/20 07/15/20 Ward Jennings MD [address] [place] [address] Assigned OBGYN Provider 03/24/20 04/07/21 Perry Milan MD [facility] [address] [place] [address] Assigned Pulmonology Provider 03/24/20 07/12/22 Cristina Giles APRN CNM [address] [place] [address] Assigned OBGYN Provider 04/08/21 07/28/21 Jael Hess CNM [address] [place] [address] Assigned OBGYN Provider 07/29/21 10/26/21 Araceli Jolley CNM [address] [facility] 700 [place] [address] Assigned OBGYN Provider 10/27/21 11/02/21 Jael Hess CNM [address] [place] [address] Assigned OBGYN Provider 11/10/21 07/05/22 Gale Braxton APRN CNM [address] [place] [address] Assigned OBGYN Provider 11/03/21 11/09/21 Amie Teixeira APRN LICENSING ENGINEER [address] [place] [address] Assigned PCP 05/04/22 06/21/22 Norma Zhang APRN LICENSING ENGINEER [address] [place] [address] Assigned PCP 06/22/22 Gale Braxton APRN CNM [address] [place] [address] Assigned OBGYN Provider 07/06/22 02/14/23 Irineo Lebron, PhD [address] [place] [address] Assigned Behavioral Health Provider 11/23/22 Linn Macias APRN CNM [address] [place] [address] Assigned OBGYN Provider 02/15/23 03/28/23 Gale Braxton APRN CNM [address] [place] [address] Assigned OBGYN Provider 03/29/23 05/02/23 documented as of this encounter
--- OUTSIDE RECORDS SUMMARY | 2024-03-13 22:09 | XMS_ITS | Encounter Summary ---
Author Organization [place] Address [address] [place] [address]. [place] [address] Care Team Providers Care Aml Analyst Name Role Phone Renu Berrios PA-C Primary Care Provider + [phone] Anuja Raymundo MD Unavailable [phone] Anuja Raymundo MD Unavailable Norma Zhang APRN MANAGER PORT Unavailable Norma Zhang APRN MANAGER PORT Primary Car e Provider Hi Benson MD Unavailable [phone] Ward Jennings MD Unavailable [phone] Perry Milan MD Unavailable [phone] Cristina Giles DIRECTOR OF SPEECH PATHOLOGY CNM Unavailab le [place]ale Hess CNM Unavailable [phone] Araceli Jolley CNM Unavailable [phone] Jael Hess CNM Unavailable [phone] Gale Braxton DIRECTOR OF SPEECH PATHOLOGY CNM Unavailable [phone] Amie Teixeira APRN MANAGER PORT Unavailable [phone] Norma Zhang APRN MANAGER PORT Unavailable Gale Braxton DIRECTOR OF SPEECH PATHOLOGY CNM Unavailable BernardinoIrineo motta [place] PhD Unavailable Linn Macias DIRECTOR OF SPEECH PATHOLOGY CNM Unavailable [phone] Gale Braxton DIRECTOR OF SPEECH PATHOLOGY CNM Unavailable Encounter Details Date Type Department Care Team (Late st Contact Info) Description 05/22/2016 MyC Medical Advice [facility] [address] [place] [phone] Jailyn Light PA-C [address] [place] [id number] Social History Tobacco Use Types Packs/Day Years Used Date Smoking Tobacco: Never Smokeless Tobacco: Never Alcohol Use Standard Drinks/Week Comments Yes 0 (1 standard drink = 0.6 oz pure alcohol) socially, couple times per month Sex and Gender Information Value Date Recorded Sex Assigned at Female 06/06/2018 9:16 PM DISTRIBUTION CLERK Gender Identity Female 06/06/2018 9:16 PM DISTRIBUTION CLERK Sexual Orientation Straight 06/06/2018 9: 16 PM DISTRIBUTION CLERK documented as of this encounter Plan of Treatment Upcoming Encounters Date Type Department Care Team (Late st Contact Info) Description 11/30/2024 7:00 AM CDT Office Visit [address] [place] [phone] Norma Zhang APRN MANAGER [place] [address] [place] [address] [place] [address] documented as of this encounter Visit Diagnoses Not on filedocumented in this encounter Additional Health Concerns Infection Onset Date Last Indicated Resolved Time Influenza 04/27/2022 04/27/2022 05/04/2022 11:4 1 PM DISTRIBUTION CLERK Assessment Noted Time PHQ-9 Depression Total Score: 2 06/28/19 16 7:53 AM DISTRIBUTION CLERK documented as of this encounter Care Teams Aml Analyst Relationship Specialty Start Date End Date Renu Berrios PA-C [address] [place] [address] PCP - General Physician Winch Runner - Medical 12/25/15 11/29/18 Anuja Raymundo MD [address] [place] [address] PCP - Assigned PCP 02/15/18 08/04/18 Norma Zhang APRN MANAGER [place] [address] [place] [address] [place] [address] PCP - General Nurse Practitioner 11/30/18 Anuja Raymundo MD [address] [place] [address] Assigned PCP 02/15/18 10/24/18 Norma Zhang APRN MANAGER [place] [address] [place] [address] [place] [address] Assigned PCP 10/25/18 05/03/22 Hi Benson MD [address] [place] [address] Assigned Surgical Provider 03/24/20 07/15/20 Ward Jennings MD [address] [place] [address] Assigned OBGYN Provider 03/24/20 04/07/21 Perry Milan MD [facility] [address] [place] [address] Assigned Pulmonology Provider 03/24/20 07/12/22 Cristina Giles APRN CNM [address] [place] [address] Assigned OBGYN Provider 04/08/21 07/28/21 Jael Hess CNM [address] [place] [address] Assigned OBGYN Provider 07/29/21 10/26/21 Aarceli Jolley CNM [address] [place] [address] [place] [address] Assigned OBGYN Provider 10/27/21 11/02/21 Jael Hess CNM [address] [place] [address] Assigned OBGYN Provider 11/10/21 07/05/22 Gale Braxton APRN CNM [address] [place] [address] Assigned OBGYN Provider 11/03/21 11/09/21 Amie Teixeira APRN MANAGER PORT [address] [place] [address] Assigned PCP 05/04/22 06/21/22 Norma Zhang APRN MANAGER PORT [address] [place] [address] Assigned PCP 06/22/22 Gale Braxton APRN CNM [address] [place] [address] Assigned OBGYN Provider 07/06/22 02/14/23 Irineo Lebron, PhD [address] [place] [address] Assigned Behavioral Health Provider 11/23/22 Linn Macias APRN CNM [address] [place] [address] Assigned OBGYN Provider 02/15/23 03/28/23 Gale Braxton APRN CNM [address] [place] [address] Assigned OBGYN Provider 03/29/23 05/02/23 documented as of this encounter
--- OUTSIDE RECORDS SUMMARY | 2024-03-13 22:09 | XMS_ITS | Encounter Summary ---
Author Organization [place] Address [address] [place] [address]. [place] [address] Care Team Providers Care Dehydrator Tender Name Role Phone Renu Berrios PA-C Primary Care Provider + [phone] Anuja Raymundo MD Unavailable [phone] Anuja Raymundo MD Unavailable Norma Zhang APRN CATALYST OPERATOR GASOLINE Unavailable Norma Zhang APRN CATALYST OPERATOR GASOLINE Primary Car e Provider Hi Benson MD Unavailable [phone] Ward Jennings MD Unavailable [phone] Perry Milan MD Unavailable [phone] Cristina Giles RADIATION CONTROL TECHNICIAN CNM Unavailab le Jael Hess CNM Unavailable [phone] Araceli Jolley CNM Unavailable [phone] Jael Hess CNM Unavailable [phone] Gale Braxton RADIATION CONTROL TECHNICIAN CNM Unavailable [phone] Amie Teixeira APRN CATALYST OPERATOR GASOLINE Unavailable [phone] Norma Zhang APRN CATALYST OPERATOR GASOLINE Unavailable Gale Braxton RADIATION CONTROL TECHNICIAN CNM Unavailable BernardinoIrineo motta PhD Unavailable Linn Macias RADIATION CONTROL TECHNICIAN CNM Unavailable [phone] Gale Braxton RADIATION CONTROL TECHNICIAN CN Unavailable Encounter Details Date Type Department Care Team (Late st Contact Info) Description 02/16/2017 MyC Medical Advice [facility] [address] [place] [phone] Renu Berrios PA-C [address] [place] [address] Social History Tobacco Use Types Packs/Day Years Used Date Smoking Tobacco: Never Smokeless Tobacco: Never Alcohol Use Standard Drinks/Week Comments Yes 0 (1 standard drink = 0.6 oz pure alcohol) socially, couple times per month Sex and Gender Information Value Date Recorded Sex Assigned at Female 06/06/2018 9:16 PM FLOOR WORKER WELL SERVICE Gender Identity Female 06/06/2018 9:16 PM FLOOR WORKER WELL SERVICE Sexual Orientation Straight 06/06/2018 9: 16 PM FLOOR WORKER WELL SERVICE documented as of this encounter Plan of Treatment Upcoming Encounters Date Type Department Care Team (Late st Contact Info) Description 11/30/2024 7:00 AM CDT Office Visit [address] [place] [phone] Norma Zhang APRN [address] [place] [address] documented as of this encounter Visit Diagnoses Not on filedocumented in this encounter Additional Health Concerns Infection Onset Date Last Indicated Resolved Time Influenza 04/27/2022 04/27/2022 05/04/2022 11:4 1 PM FLOOR WORKER WELL SERVICE Assessment Noted Time PHQ-9 Depression Total Score: 2 06/28/19 16 7:53 AM FLOOR WORKER WELL SERVICE documented as of this encounter Care Teams Dehydrator Tender Relationship Specialty Start Date End Date Renu Berrios PA-C [address] [place] [address] PCP - General Physician Cooking Appliance Repair Technician - Medical 12/25/15 11/29/18 Anuja Raymundo MD [address] [place] [address] PCP - Assigned PCP 02/15/18 08/04/18 Norma Zhang APRN CATALYST OPERATOR GASOLINE [address] [place] [address] [place] [address] PCP - General Nurse Practitioner 11/30/18 Anuja Raymundo MD [address] [place] [address] Assigned PCP 02/15/18 10/24/18 Norma Zhang APRN CATALYST OPERATOR GASOLINE [address] [place] [address] [place] [address] Assigned PCP 10/25/18 05/03/22 Hi Benson MD [address] [place] [address] Assigned Surgical Provider 03/24/20 07/15/20 aWrd Jennings MD [address] [place] [address] Assigned OBGYN Provider 03/24/20 04/07/21 Perry Milan MD [facility] [address] [place] [address] Assigned Pulmonology Provider 03/24/20 07/12/22 Cristina Giles APRN CNM [address] [place] [address] Assigned OBGYN Provider 04/08/21 07/28/21 Jael Hess CNM [address] [place] [address] Assigned OBGYN Provider 07/29/21 10/26/21 Araceli Jolley CNM [address] [facility] [address] [place] [address] Assigned OBGYN Provider 10/27/21 11/02/21 Jael Hess CNM [address] [place] [address] Assigned OBGYN Provider 11/10/21 07/05/22 Gale Braxton APRN CNM [address] [place] [address] Assigned OBGYN Provider 11/03/21 11/09/21 Amie Teixeira, JOSTIN CATALYST OPERATOR GASOLINE [address] [place] [address] Assigned PCP 05/04/22 06/21/22 Norma Zhang APRN CATALYST OPERATOR GASOLINE [address] [facility] [place] [address] Assigned PCP 06/22/22 Gale Braxton APRN CNM [address] [place] [address] Assigned OBGYN Provider 07/06/22 02/14/23 Irineo Lebron, PhD [address] [place] [address] Assigned Behavioral Health Provider 11/23/22 Linn Macias APRN CNM [address] [place] [address] Assigned OBGYN Provider 02/15/23 03/28/23 Gale Braxton APRN [facility] [address] [place] [address] Assigned OBGYN Provider 03/29/23 05/02/23 documented as of this encounter
--- OUTSIDE RECORDS SUMMARY | 2024-03-13 22:09 | XMS_ITS | Encounter Summary ---
Author Organization [place] Address [address] [place] [address]. [place] [address] Care Team Providers Care Civil Engineering Director Name Role Phone Renu Berrios PA-C Primary Care Provider + [phone] Anuja Raymundo MD Unavailable [phone] Anuja Raymundo MD Unavailable Norma Zhang APRN VENDOR MANAGER Unavailable Norma Zhang APRN VENDOR MANAGER Primary Car e Provider Hi Benson MD Unavailable [phone] Ward Jennings MD Unavailable [phone] Perry Milan MD Unavailable [phone] Cristina Giles VOICE COACH CNM Unavailab le Jael Hess CNM Unavailable [phone] Araceli Jolley CNM Unavailable [phone] Jael Hess CNM Unavailable [phone] Gale Braxton VOICE COACH CNM Unavailable [phone] Amie Teixeira APRN VENDOR MANAGER Unavailable [phone] Norma Zhang APRN VENDOR MANAGER Unavailable Gale Braxton VOICE COACH CNM Unavailable Bernardino Irineo Elton PhD Unavailable [phone] Linn Macias VOICE COACH CNM Unavailable [phone] Gale Braxton VOICE COACH CNM Unavailable Encounter Details Date Type Department Care Team (Late st Contact Info) Description 07/09/2016 MyC Medical Advice [facility] [address] [place] [phone] Ge Polanco, CYNDI Social History Tobacco Use Types Packs/Day Years Used Date Smoking Tobacco: Never Smokeless Tobacco: Never Alcohol Use Standard Drinks/Week Comments Yes 0 (1 standard drink = 0.6 oz pure alcohol) socially, couple times per month Sex and Gender Information Value Date Recorded Sex Assigned at Female 06/06/2018 9:16 PM BOTANY TEACHER Gender Identity Female 06/06/2018 9:16 PM BOTANY TEACHER Sexual Orientation Straight 06/06/2018 9: 16 PM BOTANY TEACHER documented as of this encounter Plan of Treatment Upcoming Encounters Date Type Department Care Team (Late st Contact Info) Description 11/30/2024 7:00 AM CDT Office Visit [address] [place] [phone] Norma Zhang APRN [facility] [address] [place] [address] [place] [phone] documented as of this encounter Visit Diagnoses Not on filedocumented in this encounter Additional Health Concerns Infection Onset Date Last Indicated Resolved Time Influenza 04/27/2022 04/27/2022 05/04/2022 11:4 1 PM BOTANY TEACHER Assessment Noted Time PHQ-9 Depression Total Score: 2 06/28/19 16 7:53 AM BOTANY TEACHER documented as of this encounter Care Teams Civil Engineering Director Relationship Specialty Start Date End Date Renu Berrios PA-C [address] [place], [place] [phone] PCP - General Physician Directional Bore Operator - Medical 12/25/15 11/29/18 Anuja Raymundo MD [address] [place] [address] PCP - Assigned PCP 02/15/18 08/04/18 Norma Zhang APRN VENDOR MANAGER [address] [place] [address] [place] [address] PCP - General Nurse Practitioner 11/30/18 Anuja Raymundo MD [address] [place] [address] Assigned PCP 02/15/18 10/24/18 Norma Zhang APRN VENDOR MANAGER [address] [place] [address] [place] [address] Assigned PCP 10/25/18 05/03/22 Hi Benson MD [address] [place] [address] Assigned Surgical Provider 03/24/20 07/15/20 Ward Jennings MD [address] [place] [address] Assigned OBGYN Provider 03/24/20 04/07/21 Perry Milan MD [facility] [address] [place] [address] Assigned Pulmonology Provider 03/24/20 07/12/22 Cristina Giles APRN CNM [address] [place] [address] Assigned OBGYN Provider 04/08/21 07/28/21 Jael Hess CNM [address] [place] [address] Assigned OBGYN Provider 07/29/21 10/26/21 Shola Araceli Sarah Beth CNM [address] [place] [address] Assigned OBGYN Provider 10/27/21 11/02/21 Jael Hess CNM [address] [place] [address] Assigned OBGYN Provider 11/10/21 07/05/22 Gale Barxton APRN CNM [address] [place] [address] Assigned OBGYN Provider 11/03/21 11/09/21 Amie Teixeira APRN VENDOR MANAGER [address] [place] [address] Assigned PCP 05/04/22 06/21/22 Norma Zhang APRN VENDOR MANAGER [address] [facility] [place] [address] Assigned PCP 06/22/22 Gale Braxton APRN CNM [address] [place] [address] Assigned OBGYN Provider 07/06/22 02/14/23 Irineo Lebron, PhD [address] [place] [address] Assigned Behavioral Health Provider 11/23/22 Linn Macias APRN CNM [address] [address] Assigned OBGYN Provider 02/15/23 03/28/23 Gale Braxton APRN [facility] [address] [place] [address] Assigned OBGYN Provider 03/29/23 05/02/23 documented as of this encounter
--- OUTSIDE RECORDS SUMMARY | 2024-03-13 22:09 | XMS_ITS | Clinical Summary ---
Author Organization [facility] Address [address] [place] [address] Care Team Providers Care Halal Butcher Name Role Phone Found, No Pcp MD Primary Care Provider Unavailab le Source Comments You are receiving this document as you are listed as the primary care provider,follow-up provider, or the patient has been referred to you for consultation.This is in compliance with the Medicare andMedicaid EHR Incentive Program,which states Providers who transition their patient to another setting of careor provider of care or refers their patient to another provider of care shouldprovide summary care record for each transition of care or referral. Mashups Allergies Active Allergy Reactions Criticality Noted Date Comments Amoxicillin-Pot Clavulanate Rash 12/07/19 09 Cefprozil Rash 08/05/2008 Levofloxacin Palpitations 08/24/2016 Penicillin G Rash High 02/22/2010 Sulfa Antibiotics Hives,Rash High 02/22/2010 Severe hives / rash with this she received 2 shots of Epi Medications Medication Sig Dispensed Refills Start Date End Date Status Etonogestrel-Ethinyl Estradiol (NUVARING) 0.12-0.015 MG/24HR vaginal ring 02/13/2017 Active fluticasone-salmetero l (ADVAIR HFA) 230-21 mcg/actuation inhaler Inhale 2 Puffs. 02/13/2017 Active levalbuterol (XOPENEX HFA) 45 mcg/actuation inhaler Inhale 2 Puffs. 02/13/2017 Active levalbuterol (XOPENEX) 1.25 MG/3ML nebulizer solution Inhale 1.25 mg. 02/13/2017 A ctive sodium chloride 3 % nebulizer solution TAKE 3 MLS BY NEBULIZATION 2 TIMES DAILY 08/20/2016 Active acetylcysteine (MUCOMYST) 200 mg/ml (20%) nebulizer solution Take 400 mg by mouth two times a day. 06/15/2021 Active aspirin EC 81 MG enteric coated tablet Take 81 mg by mouth. Active metoclopramide (REGLAN) 10 MG tablet Take 10 mg by mouth. 05/10/2021 Active ondansetron (ZOFRAN-ODT) 4 MG disintegrating tablet Take 4 mg by mouth. 04/02/2021 Active Pyridoxine HCl (B-6 OR) Take by mouth. Active Probiotic Product (PROBIOTIC BLEND OR) Take by mouth. Active MV-Min-Fe Fum-FA-DHA ( 1 OR) Take by mouth. Active Doxylamine Succinate, Sleep, (UNISOM OR) Take by mouth. Ac tive sertraline (ZOLOFT) 50 MG tablet Take 1 Tablet (50 mg) by mouth daily. 04/11/2022 Active Active Problems Problem Noted Date Diagnosed Date Moderate asthma with acute exacerbation 04/05/20 17 Obesity (BMI 30-39.9) Overview (07/08/2018): 07/08/2018 BMI 32 Immunizations Name Administration Dates Next Due 9vHPV (Gardasil 9) 06/03/2013,03/26/2012, 011 DTaP 06/09/1996, 3,1991,1991,1991 Flu Vac (3+ yrs) 01/27/2012, 6,05/10/2002,2000,03/12/1999 Hib (ActHIB) 02/01/1993, 2,1991,1991 Influenza IIV4 (Quadrivalent ) 0.5mL (21052) 02/25/2022,03/16/2021,03/10/2019 Influenza LAIV3 2-49 years (Flumist) 01/25/2009 Influenza, Unspecified Formulation 02/29/2020, MMR 09/21/2021, 5,06/09/1996,1992 MPSV4 (Menomune) 06/11/2010 OPV, Trivalent (Orimune or tOPV) 997,02/01/1993,1991,1991 PPSV23 (Pneumovax) 04/09/2006 Pfizer Bivalent 12+ 02/25/2022 Pfizer Monovalent 12+ Purple Top 04/19/2021,04/0 09/2020,08/14/2020 Tdap 07/11/2021,12/15/2019,06/11/2010 Varicella 04/20/2015,03/16/2015,01/25/2009 Social History Tobacco Use Types Packs/Day Years Used Date Smoking Tobacco: Never Smokeless Tobacco: Never Sex and Gender Information Value Date Recorded Sex Assigned at Not on file Gender Identity Not on file Sexual Orientation Not on file Last Filed Vital Signs Vital Sign Reading Time Taken Comments Blood Pressure 138/91 04/19/2022 8:53 AM HANDY WORKER Pulse 110 04/19/2022 8:53 AM HANDY WORKER Temperature 36.8 ??C (98.2 ??F) 04/19/2022 8:53 AM CS T Respiratory Rate 16 04/19/2022 8:53 AM HANDY WORKER Oxygen Saturation 98% 04/19/2022 8:53 AM HANDY WORKER Inhaled Oxygen Concentration - - Weight 95.7 kg (211 lb) 07/08/2018 9:27 AM HANDY WORKER Height 172.7 cm (5' 8) 07/08/2018 9:27 AM HANDY WORKER Body Mass Index 32.08 07/08/2018 9:27 AM HANDY WORKER Plan of Treatment Health Maintenance Due Date Last Done Comments Cervical Cancer Screening Due 1991 Hep C Screening (Preventive Services) 1991 Asthma ACT 1995 Pneumococcal (2 - PCV) 04/09/2007 04/09/2006 HIV Screening (Preventive Services) 2007 Adult Preventive Visit 2009 HepB (1) 2010 COVID-19 Vaccine ( season) 2024 02/25/2022, 04/19/2021, 09/04/2020, Additional history exists Influenza (#1) 2024 02/25/2022, 03/02, 02/29/2020, Additional history exists DTaP/Tdap/Td (9 - Tdap) 07/11/2031 07/11/19, 12/15/2019, 06/11/2010, Additional history exists Zoster/Shingles (1 of 2) 2041 Hib Completed 02/01/1993, 11/01, 1991, Additional history exists IPV (Polio) Completed 06/09/1996, 07/1992, 1991, Additional history exists MCV4 Aged Out 06/11/2010 No longer eligi ble based on patient's age to complete this topic HPV Vaccine Completed 06/03/2013, 03/03, 06/11/2010 HepA Aged Out No longer eligi ble based on patient's age to complete this topic Infant RSV Aged Out No longer eligi ble based on patient's age to complete this topic Care Teams Halal Butcher Relationship Specialty Start Date End Date Found, No Pcp, [address] [facility] [place] [address] PCP - General 03/21/17
--- OUTSIDE RECORDS SUMMARY | 2024-03-13 22:09 | XMS_ITS | Encounter Summary ---
Author Organization [facility] Address [address] [place] [address]. [place] [address] Care Team Providers Care Principle Software Engineer Name Role Phone Renu Berrios PA-C Primary Care Provider + [phone] Anuja Raymundo MD Unavailable [phone] Anuja Raymundo MD Unavailable Norma Zhang APRN FACTORER Unavailable Norma Zhang APRN FACTORER Primary Car e Provider Hi Benson MD Unavailable [phone] Ward Jennings MD Unavailable [phone] ePrry Milan MD Unavailable [phone] Cristina Giles GRAPHIC ART DESIGNER CNM Unavailab le Jael Hess CNM Unavailable [phone] Araceli Jolley CNM Unavailable [phone] Jael Hess CNM Unavailable [phone] Gale Braxton GRAPHIC ART DESIGNER CNM Unavailable [phone] Amie Teixeira APRN FACTORER Unavailable [phone] Norma Zhang APRN FACTORER Unavailable Gale Braxton GRAPHIC ART DESIGNER CNM Unavailable BernardinoIrineo motta Elton PhD Unavailable [phone] Linn Macias GRAPHIC ART DESIGNER CNM Unavailable [phone] Gale Braxton GRAPHIC ART DESIGNER CN Unavailable Encounter Details Date Type Department Care Team (Latest Contact Info) Description 05/24/2018 MyC Medical Advice [facility] [address] [place] [address] Renu Berrios PA-C [address] [place] [address] Encounter for surveillance of other contraceptive Social History Tobacco Use Types Packs/Day Years Used Date Smoking Tobacco: Never Smokeless Tobacco: Never Alcohol Use Standard Drinks/Week Comments Yes 0 (1 standard drink = 0.6 oz pure alcohol) socially, couple times per month Sex and Gender Information Value Date Recorded Sex Assigned at Female 06/06/2018 9:16 PM TALENT ACQUISITION MANAGER Gender Identity Female 06/06/2018 9:16 PM TALENT ACQUISITION MANAGER Sexual Orientation Straight 06/06/2018 9: 16 PM TALENT ACQUISITION MANAGER documented as of this encounter Plan of Treatment Upcoming Encounters Date Type Department Care Team (Late st Contact Info) Description 11/30/2024 7:00 AM CDT [facility] [address] [place] [address] [address] [place] [phone] Norma Zhang APRN [address] [place] [address] documented as of this encounter Visit Diagnoses Diagnosis Encounter for surveillance of other contraceptive documented in this encounter Additional Health Concerns Infection Onset Date Last Indicated Resolved Time Influenza 04/27/2022 04/27/2022 05/04/2022 11:4 1 PM TALENT ACQUISITION MANAGER Assessment Noted Time PHQ-9 Depression Total Score: 2 06/28/19 16 7:53 AM TALENT ACQUISITION MANAGER documented as of this encounter Care Teams Principle Software Engineer Relationship Specialty Start Date End Date Renu Berrios PA-C [address] [place] [address] PCP - General Physician On Call - Medical 12/25/15 11/29/18 Anuja Raymundo MD [address] [place] [address] PCP - Assigned PCP 02/15/18 08/04/18 Norma Zhang APRN FACTORER [address] [facility] [place] [address] PCP - General Nurse Practitioner 11/30/18 Anuja Raymundo MD [address] [place] [address] Assigned PCP 02/15/18 10/24/18 Norma Zhang APRN FACTORER [address] [place] [address] [place] [address] Assigned PCP 10/25/18 05/03/22 Hi Benson MD [address] [place] [address] Assigned Surgical Provider 03/24/20 07/15/20 Ward Jennings MD [address] [place] [address] Assigned OBGYN Provider 03/24/20 04/07/21 Perry Milan MD [facility] [address] [place] [address] Assigned Pulmonology Provider 03/24/20 07/12/22 Cristina Giles APRN CNM [address] [place] [address] Assigned OBGYN Provider 04/08/21 07/28/21 Jael Hess CNM [address] [place] [address] Assigned OBGYN Provider 07/29/21 10/26/21 Araceli Jolley CNM [address] [place] [address] Assigned OBGYN Provider 10/27/21 11/02/21 Jael Hess CNM [address] [place] [address] Assigned OBGYN Provider 11/10/21 07/05/22 Gale Braxton APRN CNM [address] [place] [address] Assigned OBGYN Provider 11/03/21 11/09/21 Amie Teixeira APRN FACTORER [address] [place] [address] Assigned PCP 05/04/22 06/21/22 Norma Zhang APRN FACTORER [address] [facility] [place] [address] Assigned PCP 06/22/22 Gale Braxton APRN CNM [address] [place] [address] Assigned OBGYN Provider 07/06/22 02/14/23 Irineo Lebron, PhD [address] [place] [address] Assigned Behavioral Health Provider 11/23/22 Linn Macias APRN CNM [address] [place] [address] Assigned OBGYN Provider 02/15/23 03/28/23 Gale Braxton APRN CNM [address] [place] [address] Assigned OBGYN Provider 03/29/23 05/02/23 documented as of this encounter
--- OUTSIDE RECORDS SUMMARY | 2024-03-13 22:09 | XMS_ITS | Encounter Summary ---
Author Organization [facility] Address [address] [place] [address]. [place] [address] Care Team Providers Care Physical Education Department Chair Name Role Phone Renu Berrios PA-C Primary Care Provider + [phone] Anuja Raymundo MD Unavailable [phone] Anuja Raymundo MD Unavailable Norma Zhang APRN ROOM CLEANER Unavailable Norma Zhang APRN ROOM CLEANER Primary Car e Provider Hi Benson MD Unavailable [phone] Ward Jennings MD Unavailable [phone] Perry Milan MD Unavailable [phone] Cristina Giles MANAGER TRANSFUSION CNM Unavailab le Jael Hess CNM Unavailable [phone] Araceli Jolley CNM Unavailable [phone] Jael Hess CNM Unavailable [phone] Gale Braxton MANAGER TRANSFUSION CNM Unavailable [phone] Amie Teixeira APRN ROOM CLEANER Unavailable [phone] Norma Zhang APRN ROOM CLEANER Unavailable Gale Braxton MANAGER TRANSFUSION CNM Unavailable [phone] BernardinoIrineo motta Elton PhD Unavailable [phone] Linn Macias MANAGER TRANSFUSION CNM Unavailable [phone] Gale Braxton MANAGER TRANSFUSION CNM Unavailable [phone] Encounter Details Date Type Department Care Team (Late st Contact Info) Description 07/18/2016 [facility] Medical [address] [address] Marilyn Newton MD [address] [place] [address] Social History Tobacco Use Types Packs/Day Years Used Date Smoking Tobacco: Never Smokeless Tobacco: Never Alcohol Use Standard Drinks/Week Comments Yes 0 (1 standard drink = 0.6 oz pure alcohol) socially, couple times per month Sex and Gender Information Value Date Recorded Sex Assigned at Female 06/06/2018 9:16 PM RECEPTIONIST DOCTOR'S OFFICE Gender Identity Female 06/06/2018 9:16 PM RECEPTIONIST DOCTOR'S OFFICE Sexual Orientation Straight 06/06/2018 9: 16 PM RECEPTIONIST DOCTOR'S OFFICE documented as of this encounter Miscellaneous Notes * Telephone Encounter - La Reyna RN - 07/18/2016 2:59 PM CST Discussed with Dr. Hand via telephone and she states she has no further recommendations at this time. It appears pt has been rescheduled with Dr. Hand to 07/25/16. Dr. Hand aware of this. Quinyx AB message sent to pt. La Pulido RN, BSN Pulmonary Paper Roller PTIONIST DOCTOR'S OFFICE * Telephone Encounter - La Reyna RN - 07/18/2016 11:54 AM CST Upon review of Dr. Hand's schedule, there is currently 1 opening 07/25/16 @0800. Attempted to contact pt and left message advising her that if she would like to move up appt she should call clinic [facility] to book in this time slot. Upon review of chart, note is in from yesterday's clinic visit. It appears CXR and some labs were done, and pt was prescribed doxycycline and tessalon. Encounter routed to Dr. Hand so she is aware and can provide additional recommendations. La Pulido RN, BSN Pulmonary Paper Roller PTIONIST DOCTOR'S OFFICE documented in this encounter Plan of Treatment Upcoming Encounters Date Type Department Care Team (Late st Contact Info) Description 11/30/2024 7:00 AM CDT Office Visit [facility] [address] [place] [address] Drive [address] [place] [phone] Norma Zhang APRN ROOM CLEANER [address] [place] [address] [place] [address] documented as of this encounter Visit Diagnoses Not on filedocumented in this encounter Additional Health Concerns Infection Onset Date Last Indicated Resolved Time Influenza 04/27/2022 04/27/2022 05/04/2022 11:4 1 PM RECEPTIONIST DOCTOR'S OFFICE Assessment Noted Time PHQ-9 Depression Total Score: 2 06/28/19 16 7:53 AM RECEPTIONIST DOCTOR'S OFFICE documented as of this encounter Care Teams Physical Education Department Chair Relationship Specialty Start Date End Date Renu Berrios [place]-C [address] [facility] [address] PCP - General Physician Cloth Mender - Medical 12/25/15 11/29/18 Anuja Raymundo MD [address] [place] [address] PCP - Assigned PCP 02/15/18 08/04/18 Norma Zhang APRN ROOM CLEANER [address] [place] [address] [place] [address] PCP - General Nurse Practitioner 11/30/18 Anuja Raymundo MD [address] [facility] [address] [place] [address] Assigned PCP 02/15/18 10/24/18 Pauline-Norma Bean APRN ROOM CLEANER [address] [facility] [place] [address] Assigned PCP 10/25/18 05/03/22 Hi Benson MD [address] [place] [address] Assigned Surgical Provider 03/24/20 07/15/20 Ward Jennings MD [address] [place] [address] Assigned OBGYN Provider 03/24/20 04/07/21 Perry Milan MD [facility] [address] [place] [address] Assigned Pulmonology Provider 03/24/20 07/12/22 Cristina Gilse APRN CNM [address] [address] [address] [place] [address] Assigned OBGYN Provider 04/08/21 07/28/21 Jael Hess CNM [address] [place] [address] Assigned OBGYN Provider 07/29/21 10/26/21 Araceli Jolley CNM [address] [place] [address] Assigned OBGYN Provider 10/27/21 11/02/21 Jael Hess CNM [address] [place] [address] Assigned OBGYN Provider 11/10/21 07/05/22 Gale Braxton APRN CNM [address] [place] [address] Assigned OBGYN Provider 11/03/21 11/09/21 Amie Teixeira APRN ROOM CLEANER [address] [place] [address] Assigned PCP 05/04/22 06/21/22 Norma Zhang APRN ROOM CLEANER [address] [facility] [place] [address] Assigned PCP 06/22/22 Gale Braxton APRN CNM [address] [place] [address] Assigned OBGYN Provider 07/06/22 02/14/23 Irineo Lebron, PhD [address] [place] [address] Assigned Behavioral Health Provider 11/23/22 Linn Macias APRN CNM [facility] [address] [address] Assigned OBGYN Provider 02/15/23 03/28/23 Gale Braxton APRN [facility] [address] [place] [address] Assigned OBGYN Provider 03/29/23 05/02/23 documented as of this encounter
--- OUTSIDE RECORDS SUMMARY | 2024-03-13 22:09 | XMS_ITS | Encounter Summary ---
Author Organization [facility] Address [address] [place] [address]. [place] [address] Care Team Providers Care Superintendent Pier Name Role Phone Norma Zhang APRN CHIEF OPERATIONS OFFICER Unavailable Norma Zhang APRN CHIEF OPERATIONS OFFICER Primary Car e Provider Hi Benson MD Unavailable Ward [place] MD Unavailable Perry Milan MD Unavailable Cristina Giles SCRAP CHARGER CNM Unavailab le Jael Hess CNM Unavailable [phone] Araceli Jolley CNM Unavailable Jael Hess CNM Unavailable [phone] Gale Braxton APRN CNM Unavailable Amie Teixeira APRN CHIEF OPERATIONS OFFICER Unavailable [phone] Norma Zhang APRN CHIEF OPERATIONS OFFICER Unavailable Gale Braxton APRN CNM Unavailable Irineo Lebron PhD Unavailable [phone] Linn Macias APRN CNM Unavailable [phone] Gale Braxton APRN CNM Unavailable Encounter Details Date Type Department Care Team (Late st Contact Info) Description 08/02/2019 MyC Medical Advice [facility] Women's [facility] [address] [place] [address] Kiera Steinberg MD [address] [place] [address] Social History Tobacco Use Types Packs/Day Years Used Date Smoking Tobacco: Never Smokeless Tobacco: Never Alcohol Use Standard Drinks/Week Comments Yes 0 (1 standard drink = 0.6 oz pure alcohol) socially, couple times per month PHQ-2 Answer Date Recorded PHQ-2 Score 0 06/09/2018 Comments Yes Sex and Gender Information Value Date Recorded Sex Assigned at Female 06/06/2018 9:16 PM FLAKE DRIER Gender Identity Female 06/06/2018 9:16 PM FLAKE DRIER Sexual Orientation Straight 06/06/2018 9: 16 PM FLAKE DRIER documented as of this encounter Plan of Treatment Upcoming Encounters Date Type Department Care Team (Late st Contact Info) Description 11/30/2024 7:00 AM CDT Office Visit [address] [place] [phone] Norma Zhang APRN CHIEF OPERATIONS OFFICER [address] [place] [address] [place] [address] documented as of this encounter Visit Diagnoses Not on filedocumented in this encounter Additional Health Concerns Infection Onset Date Last Indicated Resolved Time Influenza 04/27/2022 04/27/2022 05/04/2022 11:4 1 PM FLAKE DRIER Assessment Noted Time PHQ-9 Depression Total Score: 2 06/28/19 16 7:53 AM FLAKE DRIER documented as of this encounter Care Teams Superintendent Pier Relationship Specialty Start Date End Date Norma Zhang APRN CHIEF OPERATIONS OFFICER [address] [place] [address] [place] [address] PCP - General Nurse Practitioner 11/30/18 Norma Zhang APRN CHIEF OPERATIONS OFFICER [address] [facility] [place] [address] Assigned PCP 10/25/18 05/03/22 Hi Benson MD [address] [place] [address] Assigned Surgical Provider 03/24/20 07/15/20 Ward Jennings MD [address] [place] [address] Assigned OBGYN Provider 03/24/20 Perry Milan MD [facility] [address] [place] [address] Assigned Pulmonology Provider 03/24/20 07/12/22 Cristina Giles APRN CNM [address] [facility] [address] [place] [address] Assigned OBGYN Provider 04/08/21 Jael Hess CNM [address] [place] [address] Assigned OBGYN Provider 07/29/21 Araceli Jolley CNM [address] [facility] [address] [place] [address] Assigned OBGYN Provider 10/27/21 2 Jael Hess CNM [address] [place] [address] Assigned OBGYN Provider 11/10/21 3 Gale Braxton APRN CNM [address] [place] [address] Assigned OBGYN Provider 11/03/21 Amie Teixeira APRN CHIEF OPERATIONS OFFICER [address] [place] [address] Assigned PCP 05/04/22 06/21/22 Norma Zhang APRN CHIEF OPERATIONS OFFICER [address] [facility] [place] [address] Assigned PCP 06/22/22 Gale Braxton APRN CNM [address] [place] [address] Assigned OBGYN Provider 07/06/22 Irineo Lebron, PhD [address] [place] [address] Assigned Behavioral Health Provider 11/23/22 Linn Macias APRN CNM [address] [place] [address] Assigned OBGYN Provider 02/15/2303/28 Gale Braxton APRN CNM [address] [place] [address] Assigned OBGYN Provider 03/29/23 documented as of this encounter
--- OUTSIDE RECORDS SUMMARY | 2024-03-13 22:09 | XMS_ITS | Encounter Summary ---
Author Organization [facility] Address [address] [place] [address]. [place] [address] Care Team Providers Care Wage And Salary Administrator Name Role Phone Renu Berrios PA-C Primary Care Provider + [phone] Anuja Raymundo MD Unavailable [phone] Anuja Raymundo MD Unavailable Norma Zhang APRN BEEKEEPER FARMER Unavailable Norma Zhang APRN BEEKEEPER FARMER Primary Car e Provider Hi Benson MD Unavailable [phone] Ward Jennings MD Unavailable [phone] Perry Milan MD Unavailable [phone] Cristina Giles SYSTEMS ENG CNM Unavailab le Jael Hess CNM Unavailable [phone] Araceli Jolley CNM Unavailable [phone] Jael Hess CNM Unavailable [phone] Gale Braxton SYSTEMS ENG CNM Unavailable [phone] Amie Teixeira APRN BEEKEEPER FARMER Unavailable [phone] Norma Zhang APRN BEEKEEPER FARMER Unavailable Gale Braxton SYSTEMS ENG CNM Unavailable Irineo Lebron PhD Unavailable [phone] Linn Macias SYSTEMS ENG CNM Unavailable [phone] Gale Braxton SYSTEMS ENG CNM Unavailable Encounter Details Date Type Department Care Team (Late st Contact Info) Description 06/06/2016 MyC Medical Advice [facility] [address] [place] [address] Jailyn Light PA-C [address] [place] [address] Social History Tobacco Use Types Packs/Day Years Used Date Smoking Tobacco: Never Smokeless Tobacco: Never Alcohol Use Standard Drinks/Week Comments Yes 0 (1 standard drink = 0.6 oz pure alcohol) socially, couple times per month Sex and Gender Information Value Date Recorded Sex Assigned at Female 06/06/2018 9:16 PM BRIQUETTE MAKER Gender Identity Female 06/06/2018 9:16 PM BRIQUETTE MAKER Sexual Orientation Straight 06/06/2018 9: 16 PM BRIQUETTE MAKER documented as of this encounter Miscellaneous Notes * Telephone Encounter - Serina Banuelos, RN - 06/06/2016 4:08 PM CST Telephone Triage Protocols for Nurses third edition by Dee Dee Romo. Serina Banuelos RN UETTE MAKER documented in this encounter Plan of Treatment Upcoming Encounters Date Type Department Care Team (Late st Contact Info) Description 11/30/2024 7:00 AM CDT Office Visit [facility] [address] [place] [address] Norma Zhang APRN BEEKEEPER FARMER [address] [facility] [place] [id number] documented as of this encounter Visit Diagnoses Not on filedocumented in this encounter Additional Health Concerns Infection Onset Date Last Indicated Resolved Time Influenza 04/27/2022 04/27/2022 05/04/2022 11:4 1 PM BRIQUETTE MAKER Assessment Noted Time PHQ-9 Depression Total Score: 2 06/28/19 16 7:53 AM BRIQUETTE MAKER documented as of this encounter Care Teams Wage And Salary Administrator Relationship Specialty Start Date End Date Renu Berrios PA-C [address] [place] [address] PCP - General Physician Photo Graphics Librarian - Medical 12/25/15 11/29/18 Anuja Raymundo MD [address] [place] [address] PCP - Assigned PCP 02/15/18 08/04/18 Norma Zhang APRN BEEKEEPER FARMER [address] [facility] [place] [address] PCP - General Nurse Practitioner 11/30/18 Anuja Raymundo MD [address] [place] [address] Assigned PCP 02/15/18 10/24/18 Norma Zhang APRN BEEKEEPER FARMER [address] [place] [address] [place] [address] Assigned PCP 10/25/18 05/03/22 Hi Benson MD [address] [place] [address] Assigned Surgical Provider 03/24/20 07/15/20 Ward Jennings MD [address] [place] [address] Assigned OBGYN Provider 03/24/20 04/07/21 Perry Milan MD [facility] [address] [place] [address] Assigned Pulmonology Provider 03/24/20 07/12/22 Cristina Giles APRN CNM [address] [place] [address] Assigned OBGYN Provider 04/08/21 07/28/21 Jael Hess CNM [address] [place] [address] Assigned OBGYN Provider 07/29/21 10/26/21 Araceli Jolley CNM [address] [place] [address] Assigned OBGYN Provider 10/27/21 11/02/21 Jael Hess CNM [address] [place] [address] Assigned OBGYN Provider 11/10/21 07/05/22 Gale Braxton APRN CNM [address] [place] [address] Assigned OBGYN Provider 11/03/21 11/09/21 Amie Teixeira APRN BEEKEEPER FARMER [address] [place] [address] Assigned PCP 05/04/22 06/21/22 Norma Zhang APRN BEEKEEPER FARMER [address] [facility] [place] [address] Assigned PCP 06/22/22 Gale Braxton APRN CNM [address] [place] [address] Assigned OBGYN Provider 07/06/22 02/14/23 Irineo Lebron, PhD [address] [place] [address] Assigned Behavioral Health Provider 11/23/22 Linn Macias APRN CNM [address] [place] [address] Assigned OBGYN Provider 02/15/23 03/28/23 Gale Braxton APRN CN [address] [place] [address] Assigned OBGYN Provider 03/29/23 05/02/23 documented as of this encounter
--- OUTSIDE RECORDS SUMMARY | 2024-03-13 22:09 | XMS_ITS | Encounter Summary ---
Author Organization [facility] Address [address] [place] [address]. [place] [address] Care Team Providers Care Support Merchandiser Name Role Phone Norma Zhang APRN ACID PURIFIER Unavailable Norma Zhang APRN ACID PURIFIER Primary Car e Provider Hi Benson MD Unavailable Ward Jennings MD Unavailable Perry Milan MD Unavailable Cristina Giles METROLOGY TECHNICIAN CNM Unavailab le Jael Hess CNM Unavailable [phone] Araceli Jolley CNM Unavailable Jael Hess CNM Unavailable [phone] Gale Braxton APRN CNM Unavailable Amie Teixeira APRN ACID PURIFIER Unavailable [phone] Norma Zhang APRN ACID PURIFIER Unavailable Gale Braxton APRN CNM Unavailable Irineo Lebron PhD Unavailable [phone] Linn Macias APRN CNM Unavailable [phone] Gale Braxton APRN CNM Unavailable Encounter Details Date Type Department Care Team (Late st Contact Info) Description 05/31/2019 MyC Medical Advice [facility] [address] [place] [phone] oNrma Zhang APRN ACID PURIFIER [address] [facility] [place] [id number] Social History Tobacco Use Types Packs/Day Years Used Date Smoking Tobacco: Never Smokeless Tobacco: Never Alcohol Use Standard Drinks/Week Comments Yes 0 (1 standard drink = 0.6 oz pure alcohol) socially, couple times per month PHQ-2 Answer Date Recorded PHQ-2 Score 0 06/09/2018 Sex and Gender Information Value Date Recorded Sex Assigned at Female 06/06/2018 9:16 PM REPORTING LEAD Gender Identity Female 06/06/2018 9:16 PM REPORTING LEAD Sexual Orientation Straight 06/06/2018 9: 16 PM REPORTING LEAD documented as of this encounter Miscellaneous Notes * Telephone Encounter - Cooper Gan RN - 06/21/2019 9:43 AM REPORTING LEAD Sent message to pt with instruction on E-visit. - Sancho Gan RN - Patient Advocate Liason (PAL) [facility] RTING LEAD * Telephone Encounter - Chanell Arevalo - 06/21/2019 8:37 AM CST See reply. RTING LEAD * Telephone Encounter - Norma Carpenter APRN CNP - 06/19/2019 2:36 PM CST Needs e-visit, OV, or 15 minute phone visit. RTING LEAD * Telephone Encounter - Cooper Gan RN - 06/17/2019 12:41 PM REPORTING LEAD Routing as FYI and for review of medications. Pt states pos test. LMP 05/17/19. - Sancho Gan RN - Patient Advocate Liason (KRISTINA) [facility] RTING LEAD * Telephone Encounter - Cooper Gan RN - 06/17/2019 9:05 AM REPORTING LEAD Pt states that they had a pos test. Seeking child care counselor. Advised on seeking OB around 8-12 weeks. Asked pt about LMP to estimate gestational age. Pt currently is taking flexeril and trazodone. Concerned about risks. Awaiting pt response. Check Micromedex and Up-to-Date: Mucomyst Recommendation: Not enough is known about risks during , but poorly managed asthma can lead to poor outcomes -Micromedex Rating: risk cannot be ruled out -Crosses Placenta: Yes Xopenex Recommendation: Not enough is known about risks during , but poorly managed asthma can lead to poor outcomes -Micromedex Rating: risk cannot be ruled out -Crosses Placenta: Unknown Advair Recommendation: Individualized -Micromedex Rating: risk cannot be ruled out -Crosses Placenta: Unknown Trazadone Recommendation: Individualized, cost/benefit -Micromedex Rating: risk cannot be ruled out -Crosses Placenta: Unknown Flexeril (cyclobenzaprine) Recommendation: Individualized -Micromedex Rating: risk cannot be ruled out; , can be found in breast-milk when -Crosses Placenta: Unknown - Sancho Gan RN - Patient Advocate Liason (KRISTINA) [facility] RTING LEAD * Telephone Encounter - Cooper Gan RN - 06/03/2019 8:42 AM REPORTING LEAD Sent [employer] message. - Sancho Gan RN - Patient Advocate Liason (KRISTINA) [facility] RTING LEAD * Telephone Encounter - Dacia Alex APRN CNP - 06/02/2019 3:51 PM CST All meds would be ok, but have her contact us if she should get pos preg test (specifically to discuss trazodone - no need to prophylacticaly come off it at this point, however). RTING LEAD * Telephone Encounter - Cooper Gan RN - 05/31/2019 3:01 PM REPORTING LEAD Pt is not currently , but has concerns about the medications she is currently taking and risks to a possible future . Check Micromedex and Up-to-Date. Mucomyst Recommendation: Not enough is known about risks during , but poorly managed asthma can lead to poor outcomes -Micromedex Rating: risk cannot be ruled out -Crosses Placenta: Yes Xopenex Recommendation: Not enough is known about risks during , but poorly managed asthma can lead to poor outcomes -Micromedex Rating: risk cannot be ruled out -Crosses Placenta: Unknown Advair Recommendation: Individualized -Micromedex Rating: risk cannot be ruled out -Crosses Placenta: Unknown Trazadone Recommendation: Individualized, cost/benefit -Micromedex Rating: risk cannot be ruled out -Crosses Placenta: Unknown Routing to covering PCP pool. - Sancho Gan RN - Patient Advocate Liason (PAL) [facility] RTING LEAD documented in this encounter Plan of Treatment Upcoming Encounters Date Type Department Care Team (Late st Contact Info) Description 11/30/2024 7:00 AM CDT Office Visit [facility] [address] [facility] [address] [place] [address] Norma Zhang APRN ACID PURIFIER [address] [facility] [place] [address] documented as of this encounter Visit Diagnoses Not on filedocumented in this encounter Additional Health Concerns Infection Onset Date Last Indicated Resolved Time Influenza 04/27/2022 04/27/2022 05/04/2022 11:4 1 PM REPORTING LEAD Assessment Noted Time PHQ-9 Depression Total Score: 2 06/28/19 16 7:53 AM REPORTING LEAD documented as of this encounter Care Teams Support Merchandiser Relationship Specialty Start Date End Date Norma Zhang APRN ACID PURIFIER [address] [place] [address] [place] [address] PCP - General Nurse Practitioner 11/30/18 Norma Zhang APRN ACID PURIFIER [address] [place] [address] [place] [address] Assigned PCP 10/25/18 05/03/22 Hi Benson MD [address] [place] [address] Assigned Surgical Provider 03/24/20 07/15/20 Ward Jennings MD [address] [place] [address] Assigned OBGYN Provider 03/24/20 Perry Milan MD [facility] [address] [place] [address] Assigned Pulmonology Provider 03/24/20 07/12/22 Cristina Giles APRN CNM [address] [place] [address] Assigned OBGYN Provider 04/08/21 Jael Hess CNM [address] [place] [address] Assigned OBGYN Provider 07/29/21 Araceli Jolley CNM [address] [place] [address] Assigned OBGYN Provider 10/27/21 2 Jael Hess CNM [address] [place] [address] Assigned OBGYN Provider 11/10/21 3 Gale Braxton APRN CNM [address] [place] [address] Assigned OBGYN Provider 11/03/21 Amie Teixeira APRN ACID PURIFIER [address] [place] [address] Assigned PCP 05/04/22 06/21/22 Nroma Zhang APRN ACID PURIFIER [address] [facility] [place] [address] Assigned PCP 06/22/22 Gale Braxton APRN CNM [address] [place], [place] [address] Assigned OBGYN Provider 07/06/22 Irineo Lebron, PhD [address] [place] [address] Assigned Behavioral Health Provider 11/23/22 Linn Macias APRN CNM [address] [address] Assigned OBGYN Provider 02/15/2303/28 Gale Braxton APRN CNM [address] [place] [address] Assigned OBGYN Provider 03/29/23 documented as of this encounter
[2024-03-13 22:18] LABS: Chloride* 104 mmol/L (96-114)
[2024-03-13 22:19] LABS: Potassium* 3.3 mmol/L (3.6-5.1); Sodium* 136 mmol/L (135-149)
[2024-03-13 22:21] LABS: Creatinine* 0.8 mg/dL (0.5-1.5); Est. Creatinine Clearance* 98.18; Estimated Glomerular Filt Rate 100 ml/min
[2024-03-13 22:22] LABS: Anion Gap 11 mEq/L (7-15); Blood Urea Nitrogen* 16 mg/dL (5-24); Calcium* 9.5 mg/dL (8.4-10.6); Carbon Dioxide* 21 mmol/L (20-32); Glucose* 130 mg/dL (60-115)
[2024-03-13 23:56] VITALS: BP 138/85; PULSE 88; RESP 16; TEMP 36.8; O2SAT 98
[2024-03-13 23:57] VITALS: BP 138/85; PULSE 88; RESP 16; TEMP 36.8
== END 2024-03-13 23:57 | disposition home or self-care (01) ==
PROVIDERS: Emergency Provider Family Medicine
DX: N20.0 Calculus of kidney (principal); R31.9 Hematuria, unspecified; J18.9 Pneumonia, unspecified organism; E87.6 Hypokalemia
CPT/HCPCS: 36415; 74176; 80048; 81001; 81025; 85025; 87086; 96374; 99284; J1885